=== PATIENT | male | born 1990 | race Two or more races ===

== ENCOUNTER 2017-03-26 15:17 | Inpatient (IN) | payer OTHER ==
[~2017-03-26] VITALS: Ht 170.2 cm; Wt 93.0 kg
[2017-03-26 15:22] VITALS: BP 197/111; PULSE 91; RESP 12; TEMP 98.6; O2SAT 99
[2017-03-26] MEDS ORDERED: SODIUM CHLORIDE 0.9% FLUSH 10 ML FLUSH IVF PRN (15:45)
--- NOTE | 2017-03-26 15:56 | RADRPT ---
EXAM DATE/TIME: 03/26/2017 15:42 [facility] COMPARISON: No previous studies available for comparison. INDICATIONS : Short of breath. MEDICAL HISTORY : None. SURGICAL HISTORY : None. ENCOUNTER: Initial ACUITY: 1 day PAIN SCORE: 0/10 LOCATION: Bilateral chest FINDINGS: A single view of the chest demonstrates mild basilar airspace disease. The trace pleural fluid. Heart size upper limits normal. CONCLUSION: 1. Mild basilar airspace disease with probable trace pleural fluid. Deepak Figueroa MD on March 26, 2017 at 15:52 Board Certified Radiologist. This report was verified electronically.
[2017-03-26 16:08] VITALS: O2SAT 93
[2017-03-26 16:18] LABS: BACTERIA, URINE RARE /hpf; BLOOD, URINE SMALL (NEG); COMMENT (UR) CULT NOT INDICATED; CULTURE IF INDICATED CULT NOT INDICATED; GLUCOSE,URINE NEG (NEG); KETONE, URINE NEG (NEG); NITRITE,URINE NEG (NEG); PH, URINE 6.5 (5.0-8.5); URINE COLOR YELLOW (YELLW/STRAW)
[2017-03-26 16:20] LABS: AUTOMATED NEUTROPHIL # 3.7 TH/MM3 (1.8-7.7); BASOPHIL % 0.7 % (0.0-2.0); EOSINOPHIL # 0.1 TH/MM3 (0-0.4); EOSINOPHIL % 2.1 % (0.0-4.0); HEMATOCRIT 46.5 % (39.0-51.0); HEMO FLAGS DIFF FINAL; LYMPH % 31.7 % (9.0-44.0); LYMPHOCYTE # 2.1 TH/MM3 (1.0-4.8); MEAN CELL VOLUME 74.5 FL (80.0-100.0); MEAN CORPUSCULAR HEMOGLOBIN 24.2 PG (27.0-34.0); MEAN CORPUSCULAR HGB CONC 32.5 % (32.0-36.0); MONO % 9.1 % (0.0-8.0); NEUT % 56.4 % (16.0-70.0); PLATELET COUNT 348 TH/MM3 (150-450); RED BLOOD COUNT 6.24 MIL/MM3 (4.50-5.90); RED CELL DISTRIBUTION WIDTH 14.6 % (11.6-17.2); WHITE BLOOD COUNT 6.6 TH/MM3 (4.0-11.0)
[2017-03-26 16:32] LABS: ALT (GPT) 49 U/L (12-78); ANION GAP 6 MEQ/L (5-15); AST (GOT) 47 U/L (15-37); BICARBONATE 24.6 MEQ/L (21.0-32.0); BLOOD UREA NITROGEN 18 MG/DL (7-18); CHLORIDE 101 MEQ/L (98-107); GLOMERULAR FILTRATION RATE 94 ML/MIN (>89); POTASSIUM 4.4 MEQ/L (3.5-5.1); SODIUM (NA) 132 MEQ/L (136-145)
[2017-03-26 16:34] LABS: ALKALINE PHOSPHATASE 70 U/L (45-117); TOTAL BILIRUBIN ADULT 0.2 MG/DL (0.2-1.0)
--- NOTE | 2017-03-26 16:39 | PD ---
HPI Chief Complaint: Medical Clearance Time Seen by Provider: 15:29 Travel History International Travel<30 days: No Contact w/Intl Traveler<30days: No Traveled to known affect area: No History of Present Illness HPI 27-year-old male complains of edema since a generalized swelling in the abdomen as well as some shortness of breath at times. He believes he's gained about 10 pounds in approximately 3 weeks. Last night he noticed ankle edema for the first time. Urination has been normal. Diet has been normal. No fever. No rash. No similar prior episodes. He denies past medical history of any significance. No new or different medication. Onset gradual. Timing constant. PFSH Past Medical History Medical History: Denies Significant Hx Diminished Hearing: No Tetanus Vaccination: Unknown Influenza Vaccination: No ?: Not Past Surgical History Surgical History: No Previous Surgery Social History Alcohol Use: No Tobacco Use: No Substance Use: No Allergies-Medications (Allergen,Severity, Reaction): Coded Allergies: No Known Allergies (Unverified , 03/26/17) Reported Meds & Prescriptions Reported Meds & Active Scripts Active No Active Prescriptions or Reported Medications Review of Systems Except as stated in HPI: all other systems reviewed are Neg General / Constitutional: No: Fever Musculoskeletal: Positive: Edema Physical Exam Narrative GENERAL: 27-year-old male well-nourished well-developed acute distress SKIN: Warm and dry. HEAD: Atraumatic. Normocephalic. EYES: Pupils equal and round. No scleral icterus. No injection or drainage. ENT: No nasal bleeding or discharge. Mucous membranes pink and moist. NECK: Trachea midline. No JVD. CARDIOVASCULAR: Regular rate and rhythm. RESPIRATORY: Lungs are clear. No tachypnea. GASTROINTESTINAL: Abdomen soft, non-tender, nondistended. Hepatic and splenic margins not palpable. MUSCULOSKELETAL: 2+ pitting edema overlying the medial malleoli bilaterally. No respiratory. Normal range of motion. 2+ dorsalis pedis bilaterally. NEUROLOGICAL: Awake and alert. No obvious cranial nerve deficits. Motor grossly within normal limits. Five out of 5 muscle strength in the arms and legs. Normal speech. PSYCHIATRIC: Appropriate mood and affect; insight and judgment normal. Data Data Last Documented VS Vital Signs Date Time Temp Pulse Resp B/P (MAP) Pulse Ox O2 Delivery O2 Flow Rate FiO2 03/26/17 16:08 93 Room Air 03/26/17 15:29 17 03/26/17 15:22 98.6 91 Vital signs reviewed, blood pressure 197/111 Orders Orders Complete Blood Count With Diff (03/26/17 15:36) Comprehensive Metabolic Panel (03/26/17 15:36) B-Type Natriuretic Peptide (03/26/17 15:36) Urinalysis - C+S If Indicated (03/26/17 15:36) Iv Access Insert/Monitor (03/26/17 15:36) Ecg Monitoring (03/26/17 15:36) Oximetry (03/26/17 15:36) Oxygen Administration (03/26/17 15:36) Chest, Single Ap (03/26/17 15:36) Sodium Chloride 0.9% Flush (Ns Flush) (03/26/17 15:45) Furosemide Inj (Lasix Inj) (03/26/17 17:00) Consult Nephrology (03/26/17 ) Admit Order (Ed Use Only) (03/26/17 17:24) Labs Laboratory Tests Test 03/26/17 15:53 03/26/17 15:57 Urine Color YELLOW Urine Turbidity CLEAR Urine pH 6.5 Urine Specific [place] 1.010 Urine Protein GREATER THAN 600 mg/dL Urine Glucose (UA) NEG mg/dL Urine Ketones NEG mg/dL Urine Occult Blood SMALL Urine Nitrite NEG Urine Bilirubin NEG Urine Urobilinogen LESS THAN 2.0 MG/DL Urine Leukocyte Esterase NEG Urine RBC 1 /hpf Urine WBC 6 /hpf Urine Bacteria RARE /hpf Microscopic Urinalysis Comment CULT NOT INDICATED White Blood Count 6.6 TH/MM3 Red Blood Count 6.24 MIL/MM3 Hemoglobin 15.1 GM/DL Hematocrit 46.5 % Mean Corpuscular Volume 74.5 FL Mean Corpuscular Hemoglobin 24.2 PG Mean Corpuscular Hemoglobin Concent 32.5 % Red Cell Distribution Width 14.6 % Platelet Count 348 TH/MM3 Mean Platelet Volume 8.0 FL Neutrophils (%) (Auto) 56.4 % Lymphocytes (%) (Auto) 31.7 % Monocytes (%) (Auto) 9.1 % Eosinophils (%) (Auto) 2.1 % Basophils (%) (Auto) 0.7 % Neutrophils # (Auto) 3.7 TH/MM3 Lymphocytes # (Auto) 2.1 TH/MM3 Monocytes # (Auto) 0.6 TH/MM3 Eosinophils # (Auto) 0.1 TH/MM3 Basophils # (Auto) 0.0 TH/MM3 CBC Comment DIFF FINAL Differential Comment Blood Urea Nitrogen 18 MG/DL Creatinine 0.97 MG/DL Random Glucose 99 MG/DL Total Protein 5.4 GM/DL Albumin 1.0 GM/DL Calcium Level 7.9 MG/DL Alkaline Phosphatase 70 U/L Aspartate Amino Transf (AST/SGOT) 47 U/L Alanine Aminotransferase (ALT/SGPT) 49 U/L Total Bilirubin 0.2 MG/DL Sodium Level 132 MEQ/L Potassium Level 4.4 MEQ/L Chloride Level 101 MEQ/L Carbon Dioxide Level 24.6 MEQ/L Anion Gap 6 MEQ/L Estimat Glomerular Filtration Rate 94 ML/MIN B-Type Natriuretic Peptide LESS THAN 2 PG/ML MDM Medical Decision Making Medical Screen Exam Complete: Yes Emergency Medical Condition: Yes Differential Diagnosis Hypoalbuminemia, renal failure, CHF, venous insufficiency, infection due to Narrative Course CBC & BMP Diagram 03/26/17 15:57 Total Protein 5.4 L, Albumin 1.0 L, Calcium Level 7.9 L, Alkaline Phosphatase 70 , Aspartate Amino Transf (AST/SGOT) 47 H, Alanine Aminotransferase (ALT/SGPT) 49 , Total Bilirubin 0.2 BNP < 2 UA: proteinuria d/w Dr Bell of nephrology: 24 urine protein, renal consult, 20mg IV lasix ok d/w Dr Sandoval for [facility] Diagnosis Primary Impression: Edema Qualified Codes: R60.9 - Edema, unspecified Additional Impressions: Hypoalbuminemia Proteinuria Qualified Codes: R80.9 - Proteinuria, unspecified Nephrotic syndrome Hypertension Qualified Codes: I10 - Essential (primary) hypertension Scripts No Active Prescriptions or Reported Meds Jordon Shelby MD Mar 26, 2017 16:39
[2017-03-26] MEDS ORDERED: FUROSEMIDE 20 MG/2 ML VIAL IV PUSH ONE (17:00)
[2017-03-26] MEDS ORDERED: PROCHLORPERAZINE 25 MG SUPP RECTAL PRN (18:00)
[2017-03-26] MEDS ORDERED: NALOXONE HCL 0.4 MG/ML AMP IV PUSH PRN (18:00)
[2017-03-26] MEDS ORDERED: LACTULOSE SYRUP 20 GM/30 ML CUP PO PRN (18:00)
[2017-03-26] MEDS ORDERED: ZOLPIDEM TARTRATE 5 MG TAB PO PRN (18:00)
[2017-03-26] MEDS ORDERED: amLODIPine BESYLATE 5 MG TAB PO ONE (18:00)
[2017-03-26] MEDS ORDERED: MAGNESIUM HYDROXIDE SUSP 30 ML CUP PO PRN (18:00)
[2017-03-26] MEDS ORDERED: cloNIDine HCL 0.1 MG TAB PO PRN (18:00)
[2017-03-26] MEDS ORDERED: ONDANSETRON HCL 4 MG/2 ML VIAL IVP PRN (18:00)
[2017-03-26] MEDS ORDERED: ACETAMINOPHEN 325 MG TAB PO PRN ×2 (18:00)
[2017-03-26] MEDS ORDERED: MORPHINE SULFATE 4 MG/ML INJ IV PUSH PRN ×2 (18:00)
[2017-03-26] MEDS ORDERED: SENNOSIDES 8.6 MG TAB PO PRN (18:00)
[2017-03-26] MEDS ORDERED: oxyCODONE/ACETAMINOPHEN 5 MG/325 MG TAB PO PRN (18:00)
[2017-03-26] MEDS ORDERED: BISACODYL 10 MG SUPP RECTAL PRN (18:00)
[2017-03-26] MEDS: FUROSEMIDE 20 MG/2 ML VIAL IV PUSH SCH (18:00)
[2017-03-26] MEDS ORDERED: oxyCODONE/ACETAMINOPHEN 10 MG/325 MG TAB PO PRN (18:00)
--- NOTE | 2017-03-26 18:08 | HHI.HP ---
[facility] Service [facility] Primary Care Physician No Primary Care Physician Admission Diagnosis Nephrotic Syndrome; Edema Diagnoses: (1) Hypertension Diagnosis: Principal (2) Nephrotic syndrome Diagnosis: Principal (3) Edema Diagnosis: Principal (4) Proteinuria Diagnosis: Principal (5) Hypoalbuminemia Chief Complaint: Bilateral lower extremity swelling and hypertension Travel History International Travel<30 Days: No Contact w/Intl Traveler <30 Da: No Traveled to Known Affected Are: No History of Present Illness 27-year-old male complains of edema bilateral lower extremities and a generalized swelling in the abdomen as well as some shortness of breath at times. He believes he's gained about 10 pounds in approximately 3 weeks. Last night he noticed ankle edema for the first time. Urination has been normal. Diet has been normal. No fever. No rash. No similar prior episodes. He denies past medical history of any significance. No new or different medication. Onset gradual. Timing constant. Elevated blood pressure here Review of Systems Constitutional: COMPLAINS OF: Fatigue, Weight gain, DENIES: Diaphoretic episodes, Fever, Weight loss, Chills, Dizziness Endocrine: DENIES: Heat/cold intolerance, Polydipsia, Polyuria, Polyphagia Eyes: DENIES: Blurred vision, Diplopia, Eye inflammation, Eye pain Ears, nose, mouth, throat: DENIES: Tinnitus, Hearing loss, Vertigo, Nasal discharge, Running Nose, Epistaxis Respiratory: DENIES: Apneas, Cough, Snoring, Wheezing Cardiovascular: DENIES: Chest pain, Palpitations, Syncope Gastrointestinal: DENIES: Abdominal pain, Black stools, Bloody stools Genitourinary: DENIES: Sexual dysfunction, Urinary frequency Musculoskeletal: DENIES: Joint pain, Muscle aches Integumentary: DENIES: Abnormal pigmentation, Nail changes, Pruritus Hematologic/lymphatic: DENIES: Bruising, Lymphadenopathy Immunologic/allergic: DENIES: Eczema, Urticaria Neurologic: DENIES: Headache, Localized weakness, Paresthesias, Speech Problems Psychiatric: DENIES: Anxiety, Confusion, Mood changes, Depression, Hallucinations, Agitation, Suicidal Ideation, Homicidal Ideation Past Family Social History Past Medical History Denies Past Surgical History Denies Reported Medications Denies Allergies: Coded Allergies: No Known Allergies (Unverified , 03/26/17) Family History Hypertension Social History Denies any tobacco alcohol or illicits 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 SKIN: No rashes, ecchymoses or lesions. Cool and dry. HEAD: Atraumatic. Normocephalic. No temporal or scalp tenderness. EYES: Pupils equal round and reactive. Extraocular motions intact. No scleral icterus. No injection or drainage. ENT: Nose without bleeding, purulent drainage or septal hematoma. Throat without erythema, tonsillar hypertrophy or exudate. Uvula midline. Airway patent. NECK: Trachea midline. No JVD or lymphadenopathy. Supple, nontender, no meningeal signs. CARDIOVASCULAR: Regular rate and rhythm without murmurs, gallops, or rubs. RESPIRATORY: Clear to auscultation. Breath sounds equal bilaterally. No wheezes , rales, or rhonchi. GASTROINTESTINAL: Abdomen soft, non-tender, nondistended. No hepato-splenomegaly , or palpable masses. No guarding. MUSCULOSKELETAL: Extremities without clubbing, cyanosis, or edema. No joint tenderness, effusion, or edema noted. No calf tenderness. Negative Homans sign bilaterally. NEUROLOGICAL: Awake and alert. Cranial nerves II through XII intact. Motor and sensory grossly within normal limits. Five out of 5 muscle strength in all muscle groups. Normal speech. Laboratory Laboratory Tests Test 03/26/17 15:53 03/26/17 15:57 Urine Color YELLOW Urine Turbidity CLEAR Urine pH 6.5 Urine Specific [place] 1.010 Urine Protein GREATER THAN 600 Urine Glucose (UA) NEG Urine Ketones NEG Urine Occult Blood SMALL Urine Nitrite NEG Urine Bilirubin NEG Urine Urobilinogen LESS THAN 2.0 Urine Leukocyte Esterase NEG Urine RBC 1 Urine WBC 6 Urine Bacteria RARE Microscopic Urinalysis Comment CULT NOT INDICATED White Blood Count 6.6 Red Blood Count 6.24 Hemoglobin 15.1 Hematocrit 46.5 Mean Corpuscular Volume 74.5 Mean Corpuscular Hemoglobin 24.2 Mean Corpuscular Hemoglobin Concent 32.5 Red Cell Distribution Width 14.6 Platelet Count 348 Mean Platelet Volume 8.0 Neutrophils (%) (Auto) 56.4 Lymphocytes (%) (Auto) 31.7 Monocytes (%) (Auto) 9.1 Eosinophils (%) (Auto) 2.1 Basophils (%) (Auto) 0.7 Neutrophils # (Auto) 3.7 Lymphocytes # (Auto) 2.1 Monocytes # (Auto) 0.6 Eosinophils # (Auto) 0.1 Basophils # (Auto) 0.0 CBC Comment DIFF FINAL Differential Comment Blood Urea Nitrogen 18 Creatinine 0.97 Random Glucose 99 Total Protein 5.4 Albumin 1.0 Calcium Level 7.9 Alkaline Phosphatase 70 Aspartate Amino Transf (AST/SGOT) 47 Alanine Aminotransferase (ALT/SGPT) 49 Total Bilirubin 0.2 Sodium Level 132 Potassium Level 4.4 Chloride Level 101 Carbon Dioxide Level 24.6 Anion Gap 6 Estimat Glomerular Filtration Rate 94 B-Type Natriuretic Peptide LESS THAN 2 Result Diagram: 03/26/17 1557 03/26/17 1557 Imaging Last Impressions Chest X-Ray 03/26/17 1536 Signed Impressions: Service Date/Time: Sunday, March 26, 2017 15:42 - CONCLUSION: 1. Mild basilar airspace disease with probable trace pleural fluid. MD Andreas Du VTE Risk Assessment Caprini VTE Risk Assessment: Mod/High Risk (score >= 2) Caprini Risk Assessment Model Point Value = 1 Point Value = 2 Point Value = 3 Point Value = 5 Age 41-60 Minor surgery BMI > 25 kg/m2 Swollen legs Varicose veins or History of unexplained or recurrent spontaneous Oral contraceptives or hormone replacement Sepsis (< 1 month) Serious lung disease, including pneumonia (< 1 month) Abnormal pulmonary function Acute myocardial infarction Congestive heart failure (< 1 month) History of inflammatory bowel disease Medical patient at bed rest Age 61-74 Arthroscopic surgery Major open surgery (> 45 min) Laparoscopic surgery (> 45 min) Malignancy Confined to bed (> 72 hours) Immobilizing plaster cast Central venous access Age >= 75 History of VTE Family history of VTE Factor V Leiden Prothrombin [id number] Lupus anticoagulant Anticardiolipin antibodies Elevated serum homocysteine Heparin-induced thrombocytopenia Other congenital or acquired thrombophilia Stroke (< 1 month) Elective arthroplasty Hip, pelvis, or leg fracture Acute spinal cord injury (< 1 month) Prophylaxis Regimen Total Risk Factor Score Risk Level Prophylaxis Regimen 0-1 Low Early ambulation 2 Moderate Order ONE of the following: *Sequential Compression Device (SCD) *Heparin 5000 units SQ BID 3-4 Higher Order ONE of the following medications: *Heparin 5000 units SQ TID *Enoxaparin/Lovenox 40 mg SQ daily (WT < 150 kg, CrCl > 30 mL/min) *Enoxaparin/Lovenox 30 mg SQ daily (WT < 150 kg, CrCl > 10-29 mL/min) *Enoxaparin/Lovenox 30 mg SQ BID (WT < 150 kg, CrCl > 30 mL/min) AND/OR *Sequential Compression Device (SCD) 5 or more Highest Order ONE of the following medications: *Heparin 5000 units SQ TID (Preferred with Epidurals) *Enoxaparin/Lovenox 40 mg SQ daily (WT < 150 kg, CrCl > 30 mL/min) *Enoxaparin/Lovenox 30 mg SQ daily (WT < 150 kg, CrCl > 10-29 mL/min) *Enoxaparin/Lovenox 30 mg SQ BID (WT < 150 kg, CrCl > 30 mL/min) AND *Sequential Compression Device (SCD) Assessment and Plan Problem List: (1) Nephrotic syndrome ICD Code: N04.9 - Nephrotic syndrome with unspecified morphologic changes (2) Edema ICD Code: R60.9 - Edema, unspecified (3) Proteinuria ICD Code: R80.9 - Proteinuria, unspecified (4) Hypoalbuminemia ICD Code: E88.09 - Other disorders of plasma-protein metabolism, not elsewhere classified (5) Hypertension ICD Code: I10 - Essential (primary) hypertension Assessment and Plan Nephrotic syndrome Fluid restrict consult nephrology Started on GEORGE inhibitor Calcium channel kailyn Accurate I's and O's Daily weights A.m. labs 24 hour urine Ultrasounds of bilateral kidney SCDs bilateral lower extremities Hypertension GEORGE inhibitor and calcium channel kailyn Lasix 20 mg IV every 12 hours When necessary Catapres Check thyroid panel as well as check for diabetes Fasting lipid panel DVT and GI prophylaxis Discussed with patient and RN Code Status Full code Discussed Condition With Scheduled with emergency room physician discussed with the emergency room nurse and patient Physician Certification 2 Midnight Certification Type: Admission for Inpatient Services Order for Inpatient Services The services are ordered in accordance with Medicare regulations or non- Medicare payer requirements, as applicable. In the case of services not specified as inpatient-only, they are appropriately provided as inpatient services in accordance with the 2-midnight benchmark. Estimated LOS (days): 3 3 days is the estimated time the patient will need to remain in the hospital, assuming treatment plan goals are met and no additional complications. Post-Hospital Plan: Not yet determined Pablo Sandoval DO Mar 26, 2017 18:08
[2017-03-26 18:25] VITALS: BP 163/72; PULSE 78; RESP 16; O2SAT 99
[2017-03-26 19:04] LABS: CREATINE KINASE 131 U/L (39-308)
--- NOTE | 2017-03-26 19:12 | RADRPT ---
EXAM DATE/TIME: 03/26/2017 18:31 [facility] COMPARISON: No previous studies available for comparison. INDICATIONS : Abnormal labs. MEDICAL HISTORY : Fatigue. Weight gain. SURGICAL HISTORY : None. ENCOUNTER: Initial ACUITY: 1 day PAIN SCORE: 5/10 LOCATION: Bilateral flank MEASUREMENTS: RIGHT KIDNEY: 13.1 x 6.4 x 7.5 cm LEFT KIDNEY: 13.2 x 6.8 x 6.8 cm FINDINGS: RIGHT KIDNEY: Renal cortex is normal in thickness and echotexture. No hydronephrosis, stone, or mass. LEFT KIDNEY: Renal cortex is normal in thickness and echotexture. No hydronephrosis, stone, or mass. BLADDER: Within normal limits given the degree of distension. CONCLUSION: 1. No evidence of hydronephrosis, mass or stone. 2. Unremarkable urinary bladder. 3. Bilateral pleural effusions. 4. Minimal ascites within the upper abdomen. Daryl Monahan MD on March 26, 2017 at 19:09 Board Certified Radiologist. This report was verified electronically.
[2017-03-26 20:00] VITALS: BP 143/80; PULSE 96; RESP 16; O2SAT 99
--- NOTE | 2017-03-26 20:01 | PD.CONS ---
HPI Service Nephrology Consult Requested By Dr. Sinha Reason for Consult Proteinuria Primary Care Physician No Primary Care Physician History of Present Illness The patient is a 27 yo male who presented to the ED today for evaluation of swelling, SOB, and flu-like symptoms. 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 Reports that prior to the last few weeks, he has been in excellent health. Started noting the aforementioned symptoms approximately 3 weeks ago that has worsening in the past few days. Denies diabetic hx, no NSAID use, not hypertensive, denies hx of syphilis, hepatitis, nor HIV infection. No known family history of renal issues. Admitting SCr 0.9 and eGFR of 94 Serum albumin at 1.0. UA showed >600mg/dL on random UA all raising concern for nephrotic syndrome. (Sara Jesus) Review of Systems Respiratory: COMPLAINS OF: Shortness of breath Cardiovascular: COMPLAINS OF: Lower Extremity Edema (Sara Jesus) Past Family Social History Allergies: Coded Allergies: No Known Allergies (Unverified , 03/26/17) Past Medical History Denies Past Surgical History Denies Reported Medications Only recently took OTC flu medication but only 2 doses. Otherwise denies any medication intake Active Ordered Medications Current Medications Medications (Trade) Dose Ordered Sig/Puma Route Start Time Stop Time Status Last Admin (Catapres) 0.1 mg Q4H PRN PO 03/26/17 18:00 (Prinivil) 10 mg Q12HR PO 03/26/17 21:00 (Norvasc) 5 mg DAILY PO 03/27/17 09:00 (Lasix Inj) 20 mg BID@,18 IV PUSH 03/26/17 18:00 (NS Flush) 2 ml UNSCH PRN IV FLUSH 03/26/17 18:00 (NS Flush) 2 ml BID IV FLUSH 03/26/17 21:00 (Tylenol) 650 mg Q4H PRN PO 03/26/17 18:00 (Zofran Inj) 4 mg Q6H PRN IVP 03/26/17 18:00 (Compazine Supp) 25 mg Q12H PRN RECTAL 03/26/17 18:00 (Ambien) 5 mg HS PRN PO 03/26/17 18:00 (Tylenol) 650 mg Q6H PRN PO 03/26/17 18:00 (Percocet 5-325 Mg) 1 tab Q6H PRN PO 03/26/17 18:00 (Percocet 10-325 Mg) 1 tab Q6H PRN PO 03/26/17 18:00 (Morphine Inj) 2 mg Q3H PRN IV PUSH 03/26/17 18:00 (Morphine Inj) 4 mg Q3H PRN IV PUSH 03/26/17 18:00 (Narcan Inj) 0.4 mg UNSCH PRN IV PUSH 03/26/17 18:00 (Radha-Colace) 1 tab BID PO 03/26/17 21:00 (Milk Of Magnesia Liq) 30 ml Q12H PRN PO 03/26/17 18:00 (Senokot) 17.2 mg Q12H PRN PO 03/26/17 18:00 (Dulcolax Supp) 10 mg DAILY PRN RECTAL 03/26/17 18:00 (Lactulose Liq) 30 ml DAILY PRN PO 03/26/17 18:00 (Pepcid) 20 mg BID PO 03/26/17 21:00 Family History Mother with HTN and potential liver disease Denies any FHx of kidney disease, proteinuria, nor collagen vascular disease Social History Denies tobacco use Denies EtOH Denies illicit drug use (Sara Jesus) Physical Exam Vital Signs Vital Signs Date Time Temp Pulse Resp B/P (MAP) Pulse Ox O2 Delivery O2 Flow Rate FiO2 03/26/17 18:25 78 16 163/72 (102) 99 Room Air 03/26/17 16:08 93 Room Air 03/26/17 15:52 94 Room Air 03/26/17 15:29 17 03/26/17 15:22 98.6 91 12 197/111 (139) 99 Physical Exam GENERAL: Laying in bed. NAD. SKIN: Warm and dry. HEAD: Atraumatic. Normocephalic. EYES: Pupils equal and round. No scleral icterus. No injection or drainage. ENT: No nasal bleeding or discharge. Mucous membranes pink and moist. NECK: Trachea midline. No JVD. CARDIOVASCULAR: Regular rate and rhythm. RESPIRATORY: No accessory muscle use. Clear to auscultation. Breath sounds equal bilaterally. GASTROINTESTINAL: Abdomen soft, non-tender, nondistended. Hepatic and splenic margins not palpable. MUSCULOSKELETAL: Extremities without clubbing, cyanosis, 1-2+ pitting edema BLE up to knees. Trace in hips and hands. NEUROLOGICAL: Awake and alert. Normal speech. PSYCHIATRIC: Appropriate mood and affect; insight and judgment normal. Laboratory Laboratory Tests Test 03/26/17 15:53 03/26/17 15:57 Urine Color YELLOW Urine Turbidity CLEAR Urine pH 6.5 Urine Specific [place] 1.010 Urine Protein GREATER THAN 600 Urine Glucose (UA) NEG Urine Ketones NEG Urine Occult Blood SMALL Urine Nitrite NEG Urine Bilirubin NEG Urine Urobilinogen LESS THAN 2.0 Urine Leukocyte Esterase NEG Urine RBC 1 Urine WBC 6 Urine Bacteria RARE Microscopic Urinalysis Comment CULT NOT INDICATED White Blood Count 6.6 Red Blood Count 6.24 Hemoglobin 15.1 Hematocrit 46.5 Mean Corpuscular Volume 74.5 Mean Corpuscular Hemoglobin 24.2 Mean Corpuscular Hemoglobin Concent 32.5 Red Cell Distribution Width 14.6 Platelet Count 348 Mean Platelet Volume 8.0 Neutrophils (%) (Auto) 56.4 Lymphocytes (%) (Auto) 31.7 Monocytes (%) (Auto) 9.1 Eosinophils (%) (Auto) 2.1 Basophils (%) (Auto) 0.7 Neutrophils # (Auto) 3.7 Lymphocytes # (Auto) 2.1 Monocytes # (Auto) 0.6 Eosinophils # (Auto) 0.1 Basophils # (Auto) 0.0 CBC Comment DIFF FINAL Differential Comment Blood Urea Nitrogen 18 Creatinine 0.97 Random Glucose 99 Total Protein 5.4 Albumin 1.0 Calcium Level 7.9 Alkaline Phosphatase 70 Aspartate Amino Transf (AST/SGOT) 47 Alanine Aminotransferase (ALT/SGPT) 49 Total Bilirubin 0.2 Sodium Level 132 Potassium Level 4.4 Chloride Level 101 Carbon Dioxide Level 24.6 Anion Gap 6 Estimat Glomerular Filtration Rate 94 Total Creatine Kinase 131 Troponin I LESS THAN 0.02 B-Type Natriuretic Peptide LESS THAN 2 Complement C3 160 Complement C4 48 (Sara Jesus) Result Diagram: 03/26/17 1557 03/26/17 1557 Imaging Last Impressions Chest X-Ray 03/26/17 1536 Signed Impressions: Service Date/Time: Sunday, March 26, 2017 15:42 - CONCLUSION: 1. Mild basilar airspace disease with probable trace pleural fluid. Deepak Figueroa MD Renal Ultrasound 03/26/17 0000 Signed Impressions: Service Date/Time: Sunday, March 26, 2017 18:31 - CONCLUSION: 1. No evidence of hydronephrosis, mass or stone. 2. Unremarkable urinary bladder. 3. Bilateral pleural effusions. 4. Minimal ascites within the upper abdomen. Daryl Monahan MD (Sara Jesus) Assessment and Plan Problem List: (1) Proteinuria ICD Codes: R80.9 - Proteinuria, unspecified Plan: Proteinuria will be quantified via 24h urine collection. His preliminary lab findings are concerning for nephrotic syndrome from etiology that is not clear at the present. We are going to screen for potential underlying etiologies; check CAM, complements, hepatitis panel, RPR, HIV, SPEP, immunofixation, K/L ratio, coagulation profile, lipid profile. Renal US reviewed. Differential diagnosis includes membranous nephropathy, minimal change disease, lupus, FSGS, membranoproliferative disease, and IgA nephropathy. As discussed with the patient, we will like have to perform a kidney biopsy for definitive diagnosis for definitive treatment if possible. He was provided a handout describing procedure if indicated. Will follow with labs in the AM (2) Hypertension ICD Codes: I10 - Essential (primary) hypertension Plan: Has been started on ACEi and Norvasc per primary team (3) Edema ICD Codes: R60.9 - Edema, unspecified Plan: Likely related to hypoalbuminemia. Lasix has been started by primary (Sara Jesus) Assessment and Plan The exam, history, and the medical decision-making described in the above note were completed with the assistance of the PA-C. I reviewed and agree with the findings presented. (Terence Bell MD) Problem Qualifiers (1) Proteinuria: Qualified Codes: R80.9 - Proteinuria, unspecified (2) Hypertension: Qualified Codes: I10 - Essential (primary) hypertension (3) Edema: Qualified Codes: R60.9 - Edema, unspecified Sara Jesus Mar 26, 2017 20:01 Terence Bell MD Apr 10, 2017 16:49
[2017-03-26] MEDS: DOCUSATE SODIUM 50 MG/SENNA 8.6 MG TAB PO SCH (21:00)
[2017-03-26 21:30] VITALS: BP 164/84; PULSE 79; RESP 18; TEMP 98.3; O2SAT 96
[2017-03-26 22:00] LABS: APTT (PATIENT) 33.4 SEC (24.3-30.1); PROTHROMBIN TIME - PATIENT 11.6 SEC (9.8-11.6)
[2017-03-26] MEDS: SODIUM CHLORIDE 0.9% FLUSH 10 ML FLUSH IV FLUSH SCH (22:03)
[2017-03-26] MEDS: LISINOPRIL 10 MG TAB PO SCH (22:03)
[2017-03-26] MEDS: FAMOTIDINE 20 MG TAB PO SCH (22:03)
[2017-03-26 22:56] LABS: CREATINE KINASE 127 U/L (39-308); HDL CHOLESTEROL 52.4 MG/DL (40.0-60.0); LDL CHOLESTEROL 639 MG/DL (0-99); TOTAL PROTEIN SPE 5.1 GM/DL (6.0-7.6)
[2017-03-26 23:15] VITALS: O2SAT 100
[2017-03-27] VITALS (10 sets, daily range): BP systolic 122–176; BP diastolic 65–89; PULSE 76–96; RESP 17–20; TEMP 96.5–98.1; O2SAT 96–98
[2017-03-27 08:23] LABS: URINE TOTAL PROTEIN TIMED 1033.2 MG/DL
[2017-03-27] MEDS: DOCUSATE SODIUM 50 MG/SENNA 8.6 MG TAB PO SCH ×2 (09:00→21:00)
[2017-03-27] MEDS: amLODIPine BESYLATE 5 MG TAB PO SCH (09:43)
[2017-03-27] MEDS: FAMOTIDINE 20 MG TAB PO SCH ×2 (09:44→21:51)
[2017-03-27] MEDS: FUROSEMIDE 20 MG/2 ML VIAL IV PUSH SCH ×2 (09:44→18:06)
[2017-03-27] MEDS: SODIUM CHLORIDE 0.9% FLUSH 10 ML FLUSH IV FLUSH SCH ×2 (09:44→21:00)
[2017-03-27] MEDS: LISINOPRIL 10 MG TAB PO SCH ×2 (09:44→21:51)
[2017-03-27] MEDS: ATORVASTATIN 80 MG TAB PO SCH (11:00)
--- NOTE | 2017-03-27 11:00 | HHI.PR ---
Subjective Remarks 27-year-old male complains of edema bilateral lower extremities and a generalized swelling in the abdomen as well as some shortness of breath at times. He believes he's gained about 10 pounds in approximately 3 weeks. Last night he noticed ankle edema for the first time. Urination has been normal. Diet has been normal. No fever. No rash. No similar prior episodes. He denies past medical history of any significance. No new or different medication. Onset gradual. Timing constant. Elevated blood pressure here 03-27 patient has been seen by nephrology Multiple labs are been ordered Has elevated triglycerides and cholesterol will start on a statin Has proteinuria Has hypoalbuminemia Has edema suspected nephrotic syndrome Will probably need a kidney biopsy before discharge Objective Vitals Vital Signs Date Time Temp Pulse Resp B/P (MAP) Pulse Ox O2 Delivery O2 Flow Rate FiO2 03/27/17 08:00 97.8 91 18 122/74 (90) 98 03/27/17 05:57 98.1 93 18 136/80 (98) 96 03/27/17 04:23 89 03/27/17 03:57 98.0 96 20 139/78 (98) 03/27/17 00:23 86 03/26/17 23:15 100 21 03/26/17 21:30 98.3 79 18 164/84 (110) 96 03/26/17 20:52 03/26/17 20:00 96 16 143/80 (101) 99 Room Air 03/26/17 18:25 78 16 163/72 (102) 99 Room Air 03/26/17 16:08 93 Room Air 03/26/17 15:52 94 Room Air 03/26/17 15:29 17 03/26/17 15:22 98.6 91 12 197/111 (139) 99 I/O 03/26/17 03/26/17 03/26/17 03/27/17 03/27/17 03/27/17 07:00 15:00 23:00 07:00 15:00 23:00 Intake Total 480 ml Balance 480 ml Intake Oral 480 ml Result Diagram: 03/26/17 1557 03/26/17 1557 Other Results Laboratory Tests Test 03/26/17 15:53 03/26/17 15:57 03/26/17 21:00 03/26/17 22:04 Urine Color YELLOW Urine Turbidity CLEAR Urine pH 6.5 Urine Specific [place] 1.010 Urine Protein GREATER THAN 600 mg/dL Urine Glucose (UA) NEG mg/dL Urine Ketones NEG mg/dL Urine Occult Blood SMALL Urine Nitrite NEG Urine Bilirubin NEG Urine Urobilinogen LESS THAN 2.0 MG/DL Urine Leukocyte Esterase NEG Urine RBC 1 /hpf Urine WBC 6 /hpf Urine Bacteria RARE /hpf Microscopic Urinalysis Comment CULT NOT INDICATED Urine Random Creatinine 128 MG/DL Urine Random Total Protein 1065 MG/DL Urine Protein/Creatinine Ratio 8.32 White Blood Count 6.6 TH/MM3 Red Blood Count 6.24 MIL/MM3 Hemoglobin 15.1 GM/DL Hematocrit 46.5 % Mean Corpuscular Volume 74.5 FL Mean Corpuscular Hemoglobin 24.2 PG Mean Corpuscular Hemoglobin Concent 32.5 % Red Cell Distribution Width 14.6 % Platelet Count 348 TH/MM3 Mean Platelet Volume 8.0 FL Neutrophils (%) (Auto) 56.4 % Lymphocytes (%) (Auto) 31.7 % Monocytes (%) (Auto) 9.1 % Eosinophils (%) (Auto) 2.1 % Basophils (%) (Auto) 0.7 % Neutrophils # (Auto) 3.7 TH/MM3 Lymphocytes # (Auto) 2.1 TH/MM3 Monocytes # (Auto) 0.6 TH/MM3 Eosinophils # (Auto) 0.1 TH/MM3 Basophils # (Auto) 0.0 TH/MM3 CBC Comment DIFF FINAL Differential Comment Blood Urea Nitrogen 18 MG/DL Creatinine 0.97 MG/DL Random Glucose 99 MG/DL Total Protein 5.4 GM/DL 5.1 GM/DL Albumin 1.0 GM/DL Calcium Level 7.9 MG/DL Alkaline Phosphatase 70 U/L Aspartate Amino Transf (AST/SGOT) 47 U/L Alanine Aminotransferase (ALT/SGPT) 49 U/L Total Bilirubin 0.2 MG/DL Sodium Level 132 MEQ/L Potassium Level 4.4 MEQ/L Chloride Level 101 MEQ/L Carbon Dioxide Level 24.6 MEQ/L Anion Gap 6 MEQ/L Estimat Glomerular Filtration Rate 94 ML/MIN Total Creatine Kinase 131 U/L 127 U/L Troponin I LESS THAN 0.02 NG/ML LESS THAN 0.02 NG/ML B-Type Natriuretic Peptide LESS THAN 2 PG/ML Complement C3 160 MG/DL Complement C4 48 MG/DL Prothrombin Time 11.6 SEC Prothromb Time International Ratio 1.0 RATIO Activated Partial Thromboplast Time 33.4 SEC Triglycerides Level 285 MG/DL Cholesterol Level 748 MG/DL LDL Cholesterol 639 MG/DL HDL Cholesterol 52.4 MG/DL Cholesterol/HDL Ratio 14.27 RATIO Imaging Last Impressions Chest X-Ray 03/26/17 1536 Signed Impressions: Service Date/Time: Sunday, March 26, 2017 15:42 - CONCLUSION: 1. Mild basilar airspace disease with probable trace pleural fluid. Deepak Figueroa MD Renal Ultrasound 03/26/17 0000 Signed Impressions: Service Date/Time: Sunday, March 26, 2017 18:31 - CONCLUSION: 1. No evidence of hydronephrosis, mass or stone. 2. Unremarkable urinary bladder. 3. Bilateral pleural effusions. 4. Minimal ascites within the upper abdomen. Daryl Monahan MD Objective Remarks GENERAL: This is a well-nourished, well-developed patient, in no apparent distress. SKIN: No rashes, ecchymoses or lesions. Cool and dry. +2 bilateral lower extremity edema HEAD: Atraumatic. Normocephalic. No temporal or scalp tenderness. EYES: Pupils equal round and reactive. Extraocular motions intact. No scleral icterus. No injection or drainage. ENT: Nose without bleeding, purulent drainage or septal hematoma. Throat without erythema, tonsillar hypertrophy or exudate. Uvula midline. Airway patent. NECK: Trachea midline. No JVD or lymphadenopathy. Supple, nontender, no meningeal signs. CARDIOVASCULAR: Regular rate and rhythm without murmurs, gallops, or rubs. S1 and S2 no S3 or S4 RESPIRATORY: Clear to auscultation. Breath sounds equal bilaterally. No wheezes , rales, or rhonchi. GASTROINTESTINAL: Abdomen soft, non-tender, nondistended. No hepato-splenomegaly , or palpable masses. No guarding. MUSCULOSKELETAL: Extremities without clubbing, cyanosis, positive +2 bilateral lower extremity edema no joint tenderness, effusion, or edema noted. No calf tenderness. Negative Homans sign bilaterally. NEUROLOGICAL: Awake and alert. Cranial nerves II through XII intact. Motor and sensory grossly within normal limits. Five out of 5 muscle strength in all muscle groups. Normal speech. Insight and judgment is good Mood and behaviors appropriate Medications and IVs Current Medications Sodium Chloride (NS Flush) 2 ml UNSCH PRN IVF FLUSH AFTER USING IV ACCESS; Start 03/26/17 at 15:45; Stop 03/26/17 at 18:09; Status DC Furosemide (Lasix Inj) 20 mg ONCE ONCE IV PUSH Last administered on 03/26/17 17:02; Start 03/26/17 at 17:00; Stop 03/26/17 at 17:01; Status DC Clonidine (Catapres) 0.1 mg Q4H PRN PO SBP>160, DBP>90; Start 03/26/17 at 18:00 Lisinopril (Prinivil) 10 mg Q12HR PO Last administered on 03/27/17 09:44; Start 03/26/17 at 21:00 Amlodipine Besylate (Norvasc) 5 mg ONCE ONCE PO Last administered on 18:28; Start 03/26/17 at 18:00; Stop 03/26/17 at 18:10; Status DC Amlodipine Besylate (Norvasc) 5 mg DAILY PO Last administered on 03/27/17 09: 43; Start 03/27/17 at 09:00 Furosemide (Lasix Inj) 20 mg BID@,18 IV PUSH Last administered on 03/27/17 09:44; Start 03/26/17 at 18:00 Sodium Chloride (NS Flush) 2 ml UNSCH PRN IV FLUSH FLUSH AFTER USING IV ACCESS ; Start 03/26/17 at 18:00 Sodium Chloride (NS Flush) 2 ml BID IV FLUSH Last administered on 03/27/17 09: 44; Start 03/26/17 at 21:00 Acetaminophen (Tylenol) 650 mg Q4H PRN PO TEMP > 100.4; Start 03/26/17 at 18:00 Ondansetron HCl (Zofran Inj) 4 mg Q6H PRN IVP NAUSEA OR VOMITING; Start at 18:00 Prochlorperazine (Compazine Supp) 25 mg Q12H PRN RECTAL NAUSEA OR VOMITING; Start 03/26/17 at 18:00 Zolpidem Tartrate (Ambien) 5 mg HS PRN PO INSOMNIA; Start 03/26/17 at 18:00 Acetaminophen (Tylenol) 650 mg Q6H PRN PO PAIN SCALE 1 TO 2 Last administered on 9/20/17at 05:08; Start 03/26/17 at 18:00 Oxycodone/ Acetaminophen (Percocet 5-325 Mg) 1 tab Q6H PRN PO PAIN SCALE 3 TO 5; Start 03/26/17 at 18:00 Oxycodone/ Acetaminophen (Percocet 10-325 Mg) 1 tab Q6H PRN PO PAIN SCALE 6 TO 10; Start 03/26/17 at 18:00 Morphine Sulfate (Morphine Inj) 2 mg Q3H PRN IV PUSH Pain 3-5; if unable to take PO; Start 03/26/17 at 18:00 Morphine Sulfate (Morphine Inj) 4 mg Q3H PRN IV PUSH Pain 6-10;if unable to take PO; Start 03/26/17 at 18:00 Naloxone HCl (Narcan Inj) 0.4 mg UNSCH PRN IV PUSH SEE LABEL COMMENTS; Start at 18:00 Senna/Docusate Sodium (Radha-Colace) 1 tab BID PO ; Start 03/26/17 at 21:00 Magnesium Hydroxide (Milk Of Magnesia Liq) 30 ml Q12H PRN PO MILD - MODERATE CONSTIPATION; Start 03/26/17 at 18:00 Sennosides (Senokot) 17.2 mg Q12H PRN PO MODERATE - SEVERE CONSTIPATION; Start 03/26/17 at 18:00 Bisacodyl (Dulcolax Supp) 10 mg DAILY PRN RECTAL SEVERE CONSITIPATION; Start at 18:00 Lactulose (Lactulose Liq) 30 ml DAILY PRN PO SEVERE CONSITIPATION; Start at 18:00 Famotidine (Pepcid) 20 mg BID PO Last administered on 03/27/17t 09:44; Start at 21:00 Urinary Catheter: No Vascular Central Line Catheter: No A/P Problem List: (1) Nephrotic syndrome ICD Code: N04.9 - Nephrotic syndrome with unspecified morphologic changes (2) Edema ICD Code: R60.9 - Edema, unspecified (3) Proteinuria ICD Code: R80.9 - Proteinuria, unspecified (4) Hypoalbuminemia ICD Code: E88.09 - Other disorders of plasma-protein metabolism, not elsewhere classified (5) Hypertension ICD Code: I10 - Essential (primary) hypertension (6) Hyperlipidemia ICD Code: E78.5 - Hyperlipidemia, unspecified (7) Hypertriglyceridemia ICD Code: E78.1 - Pure hyperglyceridemia Assessment and Plan Nephrotic syndrome has proteinuria -has edema-has hypoalbuminemia-has lipid issues Fluid restrict consult nephrology Started on GEORGE inhibitor Calcium channel kailyn Accurate I's and O's Daily weights A.m. labs 24 hour urine in the process of being done Ultrasounds of bilateral kidney have been done SCDs bilateral lower extremities Hypertension GEORGE inhibitor and calcium channel kailyn Lasix 20 mg IV every 12 hours When necessary Catapres Hyperlipidemia and hypertriglyceridemia started on high-dose Lipitor Check thyroid panel as well as check for diabetes Fasting lipid panel DVT and GI prophylaxis Discussed with patient and RN Problem Qualifiers (1) Edema: Qualified Codes: R60.9 - Edema, unspecified (2) Proteinuria: Qualified Codes: R80.9 - Proteinuria, unspecified (3) Hypertension: Qualified Codes: I10 - Essential (primary) hypertension Pablo Sandoval DO Mar 27, 2017 11:00
[2017-03-27 11:06] LABS: AUTOMATED NEUTROPHIL # 4.3 TH/MM3 (1.8-7.7); BASOPHIL % 0.6 % (0.0-2.0); EOSINOPHIL # 0.1 TH/MM3 (0-0.4); EOSINOPHIL % 1.9 % (0.0-4.0); HEMATOCRIT 42.4 % (39.0-51.0); HEMO FLAGS DIFF FINAL; MEAN CORPUSCULAR HEMOGLOBIN 24.8 PG (27.0-34.0); MEAN CORPUSCULAR HGB CONC 33.5 % (32.0-36.0); MONO % 12.2 % (0.0-8.0); NEUT % 58.3 % (16.0-70.0); PLATELET COUNT 312 TH/MM3 (150-450); RED BLOOD COUNT 5.73 MIL/MM3 (4.50-5.90); RED CELL DISTRIBUTION WIDTH 14.5 % (11.6-17.2); WHITE BLOOD COUNT 7.3 TH/MM3 (4.0-11.0)
[2017-03-27 11:34] LABS: ALT (GPT) 32 U/L (12-78); ANION GAP 7 MEQ/L (5-15); AST (GOT) 29 U/L (15-37); BICARBONATE 25.8 MEQ/L (21.0-32.0); BLOOD UREA NITROGEN 21 MG/DL (7-18); CHLORIDE 98 MEQ/L (98-107); GLOMERULAR FILTRATION RATE 80 ML/MIN (>89); MAGNESIUM 2.7 MG/DL (1.5-2.5); POTASSIUM 4.3 MEQ/L (3.5-5.1); SODIUM (NA) 131 MEQ/L (136-145)
[2017-03-27 11:43] LABS: ALKALINE PHOSPHATASE 66 U/L (45-117); FREE T4 0.63 NG/DL (0.76-1.46); TOTAL BILIRUBIN ADULT 0.2 MG/DL (0.2-1.0)
[2017-03-27 17:19] LABS: HEMOGLOBIN A1a 0.9 %; HEMOGLOBIN A1b 1.5 %; HEMOGLOBIN Ao 86.6 %; HEMOGLOBIN LA1C 1.9 %; HEMOGLOBIN P3 3.4 %
--- NOTE | 2017-03-27 17:20 | HHI.NPPN ---
Subjective History of Present Illness The patient is a 27 yo male who presented to the ED today for evaluation of swelling, SOB, and flu-like symptoms. 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 Reports that prior to the last few weeks, he has been in excellent health. Started noting the aforementioned symptoms approximately 3 weeks ago that has worsening in the past few days. Denies diabetic hx, no NSAID use, not hypertensive, denies hx of syphilis, hepatitis, nor HIV infection. No known family history of renal issues. Admitting SCr 0.9 and eGFR of 94 Serum albumin at 1.0. UA showed >600mg/dL on random UA all raising concern for nephrotic syndrome. Interval History Patient indicating he still has significant lower extremity edema. Has seen no increase in urine output by history. Review of Systems General Constitutional: Weight Change Cardiovascular Cardiac: Edema Objective Data Data Vital Signs Date Time Temp Pulse Resp B/P (MAP) Pulse Ox O2 Delivery O2 Flow Rate FiO2 03/27/17 16:00 96.9 88 18 135/80 (98) 98 03/27/17 12:00 96.5 85 17 128/65 (86) 98 03/27/17 10:58 98 21 03/27/17 09:40 91 03/27/17 08:00 97.8 91 18 122/74 (90) 98 03/27/17 05:57 98.1 93 18 136/80 (98) 96 03/27/17 04:23 89 03/27/17 03:57 98.0 96 20 139/78 (98) 03/27/17 00:23 86 03/26/17 23:15 100 21 03/26/17 21:30 98.3 79 18 164/84 (110) 96 03/26/17 20:52 03/26/17 20:00 96 16 143/80 (101) 99 Room Air 03/26/17 18:25 78 16 163/72 (102) 99 Room Air -: 03/27/17 1038 03/27/17 1045 Medication Review Current Medications Sodium Chloride (NS Flush) 2 ml UNSCH PRN IVF FLUSH AFTER USING IV ACCESS; Start 03/26/17 at 15:45; Stop 03/26/17 at 18:09; Status DC Furosemide (Lasix Inj) 20 mg ONCE ONCE IV PUSH Last administered on 03/26/17t 17:02; Start 03/26/17 at 17:00; Stop 03/26/17 at 17:01; Status DC Clonidine (Catapres) 0.1 mg Q4H PRN PO SBP>160, DBP>90; Start 03/26/17 at 18:00 Lisinopril (Prinivil) 10 mg Q12HR PO Last administered on 03/27/17 09:44; Start 03/26/17 at 21:00 Amlodipine Besylate (Norvasc) 5 mg ONCE ONCE PO Last administered on 18:28; Start 03/26/17 at 18:00; Stop 03/26/17 at 18:10; Status DC Amlodipine Besylate (Norvasc) 5 mg DAILY PO Last administered on 03/27/17 09: 43; Start 03/27/17 at 09:00 Furosemide (Lasix Inj) 20 mg BID@09,18 IV PUSH Last administered on 03/27/17 09:44; Start 03/26/17 at 18:00 Sodium Chloride (NS Flush) 2 ml UNSCH PRN IV FLUSH FLUSH AFTER USING IV ACCESS ; Start 03/26/17 at 18:00 Sodium Chloride (NS Flush) 2 ml BID IV FLUSH Last administered on 03/27/17 09: 44; Start 03/26/17 at 21:00 Acetaminophen (Tylenol) 650 mg Q4H PRN PO TEMP > 100.4; Start 03/26/17 at 18:00 Ondansetron HCl (Zofran Inj) 4 mg Q6H PRN IVP NAUSEA OR VOMITING; Start at 18:00 Prochlorperazine (Compazine Supp) 25 mg Q12H PRN RECTAL NAUSEA OR VOMITING; Start 03/26/17 at 18:00 Zolpidem Tartrate (Ambien) 5 mg HS PRN PO INSOMNIA; Start 03/26/17 at 18:00 Acetaminophen (Tylenol) 650 mg Q6H PRN PO PAIN SCALE 1 TO 2 Last administered on 03/27/17 05:08; Start 03/26/17 at 18:00 Oxycodone/ Acetaminophen (Percocet 5-325 Mg) 1 tab Q6H PRN PO PAIN SCALE 3 TO 5; Start 03/26/17 at 18:00 Oxycodone/ Acetaminophen (Percocet 10-325 Mg) 1 tab Q6H PRN PO PAIN SCALE 6 TO 10; Start 03/26/17 at 18:00 Morphine Sulfate (Morphine Inj) 2 mg Q3H PRN IV PUSH Pain 3-5; if unable to take PO; Start 03/26/17 at 18:00 Morphine Sulfate (Morphine Inj) 4 mg Q3H PRN IV PUSH Pain 6-10;if unable to take PO; Start 03/26/17 at 18:00 Naloxone HCl (Narcan Inj) 0.4 mg UNSCH PRN IV PUSH SEE LABEL COMMENTS; Start at 18:00 Senna/Docusate Sodium (Radha-Colace) 1 tab BID PO ; Start 03/26/17 at 21:00 Magnesium Hydroxide (Milk Of Magnesia Liq) 30 ml Q12H PRN PO MILD - MODERATE CONSTIPATION; Start 03/26/17 at 18:00 Sennosides (Senokot) 17.2 mg Q12H PRN PO MODERATE - SEVERE CONSTIPATION; Start 03/26/17 at 18:00 Bisacodyl (Dulcolax Supp) 10 mg DAILY PRN RECTAL SEVERE CONSITIPATION; Start at 18:00 Lactulose (Lactulose Liq) 30 ml DAILY PRN PO SEVERE CONSITIPATION; Start at 18:00 Famotidine (Pepcid) 20 mg BID PO Last administered on 03/27/17 09:44; Start at 21:00 Atorvastatin Calcium (Lipitor) 80 mg DAILY PO Last administered on 03/27/17 11 :00; Start 03/27/17 at 11:00 Physical Exam General Appearance: Well Nourished, No Acute Distress, Comfortable Eyes Eye Exam: Sclera White Throat Throat Exam: Oral Mucosa Stebbins & Moist Pulmonary Resp Exam: Clear Bilaterally, Breath Sounds Equal, No Distress Cardiology CV Exam: Regular, Normal Sinus Rhythm, Good Perfusion Gastrointestinal/Abdomen GI Exam: Soft, Non-Tender Integumentary Skin Exam: Clear, Normal Turgor Extremeties Extremities Exam: Moderate Edema (involving upper and lower extremities.) Neurologic Neuro Exam: Alert, Awake, Oriented, Speech Clear, Moving All Extremities Assessment/Plan Discussed Condition With: Patient Problem List: (1) Proteinuria ICD Codes: R80.9 - Proteinuria, unspecified Plan: Based on clinical presentation as well as preliminary laboratory results patient clearly has nephrotic syndrome etiology to be determined. I discussed with the patient types of glomerulonephritis can be commonly associated with nephrotic syndrome as well as precipitating etiologies and treatment options available however a kidney biopsy will is required for definitive diagnosis to aid in management. I discussed with him indications for, alternatives to and risks associated with kidney biopsy including possible development of severe hemorrhage requiring blood transfusion, possible surgical intervention as well as kidney loss. We also discussed possible development of a AV dialysis fistula needing surgical repair as well as a risk of associated with kidney biopsy. I recommended that we proceed with a kidney biopsy after assessing risk-benefit ratio. At this time the patient indicated to me that he does wish to proceed with a biopsy for definitive diagnosis. Literature regarding nephrotic syndrome was reviewed with him also. His laboratory results available today were reviewed with him in detail with counseling. Hopefully the kidney biopsy can be performed by radiology tomorrow otherwise it will have to be delayed until next week as renal biopsy are not performed by that department on Saturday or Saturday. Differential diagnosis includes membranous nephropathy, minimal change disease, lupus, FSGS, membranoproliferative disease, and IgA nephropathy. As discussed with the patient, we will like have to perform a kidney biopsy for definitive diagnosis for definitive treatment if possible. He was provided a handout describing procedure if indicated. Will follow with labs in the AM (2) Hypertension ICD Codes: I10 - Essential (primary) hypertension Plan: Has been started on ACEi and Norvasc per primary team (3) Edema ICD Codes: R60.9 - Edema, unspecified Plan: Given the poor response of furosemide today with increased dosage and add 1 dose Diuril. Problem Qualifiers (1) Proteinuria: Qualified Codes: R80.9 - Proteinuria, unspecified (2) Hypertension: Qualified Codes: I10 - Essential (primary) hypertension (3) Edema: Qualified Codes: R60.9 - Edema, unspecified Terence Bell MD Mar 27, 2017 17:20
[2017-03-27] MEDS ORDERED: POTASSIUM CHLORIDE 20 MEQ CONTROLLED RELEASE TAB PO ONE (18:00)
[2017-03-27] MEDS ORDERED: CHLOROTHIAZIDE SOD 500 MG VIAL IV ONE (18:30)
[2017-03-28] VITALS (11 sets, daily range): BP systolic 121–157; BP diastolic 60–83; PULSE 75–90; RESP 18–22; TEMP 97.4–98.3; O2SAT 93–98
[2017-03-28 04:54] LABS: AUTOMATED NEUTROPHIL # 5.5 TH/MM3 (1.8-7.7); BASOPHIL % 0.4 % (0.0-2.0); EOSINOPHIL # 0.2 TH/MM3 (0-0.4); EOSINOPHIL % 1.8 % (0.0-4.0); HEMATOCRIT 40.4 % (39.0-51.0); HEMO FLAGS DIFF FINAL; LYMPH % 24.6 % (9.0-44.0); LYMPHOCYTE # 2.2 TH/MM3 (1.0-4.8); MEAN CELL VOLUME 74.1 FL (80.0-100.0); MEAN CORPUSCULAR HEMOGLOBIN 24.5 PG (27.0-34.0); MEAN CORPUSCULAR HGB CONC 33.1 % (32.0-36.0); MONO % 11.2 % (0.0-8.0); PLATELET COUNT 304 TH/MM3 (150-450); RED BLOOD COUNT 5.45 MIL/MM3 (4.50-5.90); RED CELL DISTRIBUTION WIDTH 14.3 % (11.6-17.2); WHITE BLOOD COUNT 8.9 TH/MM3 (4.0-11.0)
[2017-03-28 05:11] LABS: ANION GAP 5 MEQ/L (5-15); AST (GOT) 24 U/L (15-37); BICARBONATE 26.1 MEQ/L (21.0-32.0); BLOOD UREA NITROGEN 22 MG/DL (7-18); CHLORIDE 98 MEQ/L (98-107); GLOMERULAR FILTRATION RATE 92 ML/MIN (>89); MAGNESIUM 2.7 MG/DL (1.5-2.5); POTASSIUM 4.2 MEQ/L (3.5-5.1); SODIUM (NA) 129 MEQ/L (136-145)
[2017-03-28 05:20] LABS: ALKALINE PHOSPHATASE 61 U/L (45-117); ALT (GPT) 24 U/L (12-78); FREE T4 0.75 NG/DL (0.76-1.46); TOTAL BILIRUBIN ADULT 0.3 MG/DL (0.2-1.0)
[2017-03-28 07:25] LABS: URINE TOTAL PROTEIN TIMED 754.9 MG/DL
[2017-03-28] MEDS: SODIUM CHLORIDE 0.9% FLUSH 10 ML FLUSH IV FLUSH SCH ×2 (09:00→21:00)
[2017-03-28] MEDS: ATORVASTATIN 80 MG TAB PO SCH (09:00)
[2017-03-28] MEDS: FAMOTIDINE 20 MG TAB PO SCH ×2 (09:57→22:05)
[2017-03-28] MEDS: FUROSEMIDE 20 MG/2 ML VIAL IV PUSH SCH (09:57)
[2017-03-28] MEDS: DOCUSATE SODIUM 50 MG/SENNA 8.6 MG TAB PO SCH ×2 (09:58→21:00)
[2017-03-28] MEDS: LISINOPRIL 10 MG TAB PO SCH ×2 (09:58→22:05)
[2017-03-28] MEDS: amLODIPine BESYLATE 5 MG TAB PO SCH (09:58)
[2017-03-28 10:57] LABS: CREAT 24 TIMED 143.9 MG/DL
[2017-03-28 11:12] LABS: HEMOGLOBIN A1a 0.8 %; HEMOGLOBIN A1b 1.5 %; HEMOGLOBIN Ao 86.8 %; HEMOGLOBIN LA1C 1.9 %; HEMOGLOBIN P3 3.4 %
[2017-03-28] MEDS ORDERED: MIDAZOLAM HCL 5 MG/5 ML VIAL ONE (12:30)
[2017-03-28] MEDS ORDERED: LIDOCAINE HCL 1% 20 ML VIAL ONE (12:46)
--- NOTE | 2017-03-28 13:50 | PD.RAD ---
Post CT Procedure Prog Note Pre Procedure Diagnosis: (1) Nephrotic syndrome (2) Proteinuria Post Procedure Diagnosis: Procedure Date: Mar 28, 2017 Supervising Radiologist: Erickson Hughes Proceduralist/Assist: jere rae Estimated blood loss: none Anesthesia: Conscious Sedation Plan of Activity Patient to Unit: [facility] Patient Condition: Good See PACS Report for procedural detail/treatment Erickson Hughes MD Mar 28, 2017 13:50
[2017-03-28] MEDS ORDERED: HYDROmorphone HCL 2 MG TAB PO PRN (14:00)
[2017-03-28 14:42] LABS: AUTOMATED NEUTROPHIL # 7.5 TH/MM3 (1.8-7.7); BASOPHIL % 0.3 % (0.0-2.0); EOSINOPHIL # 0.1 TH/MM3 (0-0.4); EOSINOPHIL % 0.8 % (0.0-4.0); HEMATOCRIT 40.7 % (39.0-51.0); HEMO FLAGS DIFF FINAL; LYMPH % 13.2 % (9.0-44.0); LYMPHOCYTE # 1.3 TH/MM3 (1.0-4.8); MEAN CELL VOLUME 74.1 FL (80.0-100.0); MEAN CORPUSCULAR HEMOGLOBIN 24.8 PG (27.0-34.0); MEAN CORPUSCULAR HGB CONC 33.5 % (32.0-36.0); MONO % 8.4 % (0.0-8.0); NEUT % 77.3 % (16.0-70.0); PLATELET COUNT 285 TH/MM3 (150-450); RED CELL DISTRIBUTION WIDTH 14.5 % (11.6-17.2); WHITE BLOOD COUNT 9.7 TH/MM3 (4.0-11.0)
--- NOTE | 2017-03-28 15:15 | RADRPT ---
EXAM DATE/TIME: 03/28/2017 13:09 [facility] COMPARISON: No previous studies available for comparison. INDICATIONS : Acute nephrotic syndrome. SEDATION TIME: 30 minutes BIOPSY SITE: Left MEDICATION(S): 1.) 3 mg midazolam (Versed) IV 2.) 150 mcg fentanyl (Sublimaze) DEVICE(S): 1.) 20 gauge Temno core biopsy needle MEDICAL HISTORY : None. SURGICAL HISTORY : None. ENCOUNTER: Initial ACUITY: 1 day PAIN SCORE: 1/10 LOCATION: Left A total of two core specimen(s) were obtained and sent to the laboratory for pathologic evaluation. PROCEDURE: 1. CT guided renal biopsy. 2. Conscious sedation with continuous EKG and oximetry monitoring. Prior to the procedure informed consent was obtained. Any appropriate prior imaging studies were rev iewed. Using automated exposure control and adjustment of the mA and/or kV according to patient size, radiat ion dose was kept as low as reasonably achievable to obtain optimal diagnostic quality images. DICOM format image data is available electronically for review and comparison. The site was prepped in a sterile fashion. Full sterile technique was used, including cap, mask, denise rile gloves and gown and a large sterile sheet. Hand hygiene and 2% chlorhexidine and/or betadine/al cohol prep was utilized per protocol for cutaneous antisepsis. The skin and subcutaneous tissues wer e infiltrated with local anesthetic solution. With CT guidance the previously identified target was localized. Biopsy was performed using the presc ribed needle as above. Adequate hemostasis was obtained with compression at the puncture site. Follow-up CT scan reveals no hemorrhage. The patient tolerated the procedure well and there were no complications. The patient was returned to the Radiology Outpatient Unit in stable condition. CONCLUSION: Uncomplicated CT guided biopsy of the lower pole left kidney. Erickson Hughes MD on March 28, 2017 at 15:13 Board Certified Radiologist. This report was verified electronically.
--- NOTE | 2017-03-28 16:09 | HHI.PR ---
Subjective Remarks Pt has no complaints. No pain. just had kidney biopsy. no CP/SOB/N/V states that the swelling in his legs is about the same. He tells me that prior to him noticing the swelling he did have flu like symptoms. he doesn't have a PCP. Objective Vitals Vital Signs Date Time Temp Pulse Resp B/P (MAP) Pulse Ox O2 Delivery O2 Flow Rate FiO2 03/28/17 15:00 76 19 132/71 (91) 95 03/28/17 14:45 77 18 132/70 (90) 94 03/28/17 14:30 76 19 128/71 (90) 94 03/28/17 14:15 76 18 134/70 (91) 94 03/28/17 12:00 97.9 76 18 128/75 (92) 96 03/28/17 10:14 93 21 03/28/17 10:00 75 03/28/17 08:00 98.3 82 18 130/72 (91) 95 03/28/17 05:00 98.3 78 18 157/83 (107) 98 03/28/17 00:43 98.3 78 18 146/80 (102) 98 03/27/17 20:44 97.5 76 20 176/89 (118) 98 03/27/17 16:00 96.9 88 18 135/80 (98) 98 I/O 03/27/17 03/27/17 03/27/17 03/28/17 03/28/17 03/28/17 07:00 15:00 23:00 07:00 15:00 23:00 Intake Total 480 ml 240 ml Output Total 400 ml 420 ml Balance 480 ml -160 ml -420 ml Intake Oral 480 ml 240 ml Output Urine Total 400 ml 420 ml # Bowel Movements 1 Result Diagram: 03/28/17 1422 03/28/17 0425 Imaging Last Impressions Renal Biopsy CT 03/28/17 0000 Signed Impressions: Service Date/Time: March 13:09 - CONCLUSION: Uncomplicated CT guided biopsy of the lower pole left kidney. Erickson Hughes MD Chest X-Ray 03/26/17 1536 Signed Impressions: Service Date/Time: Sunday, March 26, 2017 15:42 - CONCLUSION: 1. Mild basilar airspace disease with probable trace pleural fluid. Deepak Figueroa MD Renal Ultrasound 03/26/17 0000 Signed Impressions: Service Date/Time: Sunday, March 26, 2017 18:31 - CONCLUSION: 1. No evidence of hydronephrosis, mass or stone. 2. Unremarkable urinary bladder. 3. Bilateral pleural effusions. 4. Minimal ascites within the upper abdomen. Daryl Monahan MD Objective Remarks GENERAL: laying in bed EYES: Extraocular motions intact. ENT: Nose without drainage. Airway patent. NECK: Trachea midline. CARDIOVASCULAR: Regular rate and rhythm without murmurs RESPIRATORY: Clear to auscultation. Breath sounds equal bilaterally. No wheezes GASTROINTESTINAL: Abdomen soft, non-tender, nondistended. MUSCULOSKELETAL: Extremities positive +2 bilateral lower extremity edema non pitting NEUROLOGICAL: Awake and alert. Cranial nerves II through XII intact. Motor and sensory grossly within normal limits. Insight and judgment is good Mood and behaviors appropriate A/P Problem List: (1) Nephrotic syndrome ICD Code: N04.9 - Nephrotic syndrome with unspecified morphologic changes (2) Edema ICD Code: R60.9 - Edema, unspecified (3) Proteinuria ICD Code: R80.9 - Proteinuria, unspecified (4) Hypoalbuminemia ICD Code: E88.09 - Other disorders of plasma-protein metabolism, not elsewhere classified (5) Hypertension ICD Code: I10 - Essential (primary) hypertension (6) Hyperlipidemia ICD Code: E78.5 - Hyperlipidemia, unspecified (7) Hypertriglyceridemia ICD Code: E78.1 - Pure hyperglyceridemia Assessment and Plan Nephrotic syndrome has proteinuria -has edema-has hypoalbuminemia; on Fluid restriction, nephrology following, s/p kidney biopsy today. Nephrology following. Other labwork pending. Accurate I's and O's. Daily weights. kidney u/ s w no evidence of hydronephrosis, stones. 24 [place] [id number] Hyperlipidemia:-TG 285, T. Cholesterol 748 and LDL 639, HDL 52. on lipitor HTN urgency: much better controlled on amlodipine, lisinopril Edema: on lasix scheduled. monitor potassium levels. s/p one dose of chlorithiazide IV HbA1C 5.1 SCDs bilateral lower extremities Discharge Planning when cleared by nephrology kidney biopsy results pending. Problem Qualifiers (1) Edema: Qualified Codes: R60.9 - Edema, unspecified (2) Proteinuria: Qualified Codes: R80.9 - Proteinuria, unspecified (3) Hypertension: Qualified Codes: I10 - Essential (primary) hypertension Jocelyn Durán MD Mar 28, 2017 16:09
[2017-03-28 17:28] LABS: BASOPHIL % 0.2 % (0.0-2.0); EOSINOPHIL # 0.1 TH/MM3 (0-0.4); EOSINOPHIL % 0.8 % (0.0-4.0); HEMATOCRIT 41.5 % (39.0-51.0); HEMO FLAGS DIFF FINAL; LYMPH % 16.7 % (9.0-44.0); LYMPHOCYTE # 1.4 TH/MM3 (1.0-4.8); MEAN CELL VOLUME 75.2 FL (80.0-100.0); MEAN CORPUSCULAR HEMOGLOBIN 25.1 PG (27.0-34.0); MEAN CORPUSCULAR HGB CONC 33.4 % (32.0-36.0); MONO % 9.7 % (0.0-8.0); NEUT % 72.6 % (16.0-70.0); PLATELET COUNT 280 TH/MM3 (150-450); RED BLOOD COUNT 5.52 MIL/MM3 (4.50-5.90); RED CELL DISTRIBUTION WIDTH 14.2 % (11.6-17.2); WHITE BLOOD COUNT 8.2 TH/MM3 (4.0-11.0)
--- NOTE | 2017-03-28 17:32 | HHI.NPPN ---
Subjective History of Present Illness The patient is a 27 yo male who presented to the ED today for evaluation of swelling, SOB, and flu-like symptoms. 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 Reports that prior to the last few weeks, he has been in excellent health. Started noting the aforementioned symptoms approximately 3 weeks ago that has worsening in the past few days. Denies diabetic hx, no NSAID use, not hypertensive, denies hx of syphilis, hepatitis, nor HIV infection. No known family history of renal issues. Admitting SCr 0.9 and eGFR of 94 Serum albumin at 1.0. UA showed >600mg/dL on random UA all raising concern for nephrotic syndrome. Interval History Pt s/p kidney biopsy this AM. Uncomplicated Reports he is feeling uncomfortable and bloated. Feels as though he can't urinate. (Sara Jesus) Review of Systems General Constitutional: Weight Change (Sara Jesus) Cardiovascular Cardiac: Edema (Sara Jesus) Gastrointestinal Gastrointestinal: Abdominal Pain (Sara Jesus) Objective Data Data Vital Signs Date Time Temp Pulse Resp B/P (MAP) Pulse Ox O2 Delivery O2 Flow Rate FiO2 03/28/17 15:00 76 19 132/71 (91) 95 03/28/17 14:45 77 18 132/70 (90) 94 03/28/17 14:30 76 19 128/71 (90) 94 03/28/17 14:15 76 18 134/70 (91) 94 03/28/17 12:00 97.9 76 18 128/75 (92) 96 03/28/17 10:14 93 21 03/28/17 10:00 75 03/28/17 08:00 98.3 82 18 130/72 (91) 95 03/28/17 05:00 98.3 78 18 157/83 (107) 98 03/28/17 00:43 98.3 78 18 146/80 (102) 98 03/27/17 20:44 97.5 76 20 176/89 (118) 98 (Sara Jesus) -: 03/28/17 1422 03/28/17 0425 Imaging Last Impressions Renal Biopsy CT 03/28/17 0000 Signed Impressions: Service Date/Time: March 13:09 - CONCLUSION: Uncomplicated CT guided biopsy of the lower pole left kidney. Erickson Hughes MD Chest X-Ray 03/26/17 1536 Signed Impressions: Service Date/Time: Sunday, March 26, 2017 15:42 - CONCLUSION: 1. Mild basilar airspace disease with probable trace pleural fluid. Deepak Figueroa MD Renal Ultrasound 03/26/17 0000 Signed Impressions: Service Date/Time: Sunday, March 26, 2017 18:31 - CONCLUSION: 1. No evidence of hydronephrosis, mass or stone. 2. Unremarkable urinary bladder. 3. Bilateral pleural effusions. 4. Minimal ascites within the upper abdomen. Daryl Monahan MD Medication Review Current Medications Medications (Trade) Dose Ordered Sig/Puma Route Start Time Stop Time Status Last Admin (Catapres) 0.1 mg Q4H PRN PO 03/26/17 18:00 (Prinivil) 10 mg Q12HR PO 03/26/17 21:00 03/28/17 09:58 (Norvasc) 5 mg DAILY PO 03/27/17 09:00 03/28/17 09:58 (NS Flush) 2 ml UNSCH PRN IV FLUSH 03/26/17 18:00 (NS Flush) 2 ml BID IV FLUSH 03/26/17 21:00 03/28/17 09:00 (Tylenol) 650 mg Q4H PRN PO 03/26/17 18:00 (Zofran Inj) 4 mg Q6H PRN IVP 03/26/17 18:00 (Compazine Supp) 25 mg Q12H PRN RECTAL 03/26/17 18:00 (Ambien) 5 mg HS PRN PO 03/26/17 18:00 (Tylenol) 650 mg Q6H PRN PO 03/26/17 18:00 03/27/17 05:08 (Percocet 5-325 Mg) 1 tab Q6H PRN PO 03/26/17 18:00 (Percocet 10-325 Mg) 1 tab Q6H PRN PO 03/26/17 18:00 (Morphine Inj) 2 mg Q3H PRN IV PUSH 03/26/17 18:00 (Morphine Inj) 4 mg Q3H PRN IV PUSH 03/26/17 18:00 (Narcan Inj) 0.4 mg UNSCH PRN IV PUSH 03/26/17 18:00 (Radha-Colace) 1 tab BID PO 03/26/17 21:00 03/28/17 09:58 (Milk Of Magnesia Liq) 30 ml Q12H PRN PO 03/26/17 18:00 (Senokot) 17.2 mg Q12H PRN PO 03/26/17 18:00 (Dulcolax Supp) 10 mg DAILY PRN RECTAL 03/26/17 18:00 (Lactulose Liq) 30 ml DAILY PRN PO 03/26/17 18:00 (Pepcid) 20 mg BID PO 03/26/17 21:00 03/28/17 09:57 (Lipitor) 80 mg DAILY PO 03/27/17 11:00 03/28/17 09:00 (Lasix Inj) 40 mg BID@,18 IV PUSH 03/27/17 18:00 03/28/17 09:57 (Dilaudid) 1 mg Q6H PRN PO 03/28/17 14:00 03/28/17 23:59 (Sara Jesus) Physical Exam General Appearance: Well Nourished, No Acute Distress, Comfortable (Sara Jesus) Eyes Eye Exam: Sclera White (Sara Jesus) Throat Throat Exam: Oral Mucosa [place] & Moist (Sara Jesus) Pulmonary Resp Exam: Clear Bilaterally, Breath Sounds Equal, No Distress (Sara Jesus) Cardiology CV Exam: Regular, Normal Sinus Rhythm, Good Perfusion (Sara Jesus) Gastrointestinal/Abdomen GI Exam: Soft, Non-Tender (Sara Jesus) Integumentary Skin Exam: Clear, Normal Turgor (Sara Jesus) Extremeties Extremities Exam: Moderate Edema (involving upper and lower extremities.) (Sara Jesus) Neurologic Neuro Exam: Alert, Awake, Oriented, Speech Clear, Moving All Extremities (Sara Jesus) Assessment/Plan Discussed Condition With: Patient Problem List: (1) Proteinuria ICD Codes: R80.9 - Proteinuria, unspecified Plan: 24h urine protein quantification of 10,569mg. s/p biopsy this AM. Hopefully results will be back within the next 24-48h Renal functions stable Differential diagnosis includes membranous nephropathy, minimal change disease, lupus, FSGS, membranoproliferative disease, and IgA nephropathy. As discussed with the patient, we will like have to perform a kidney biopsy for definitive diagnosis for definitive treatment if possible. He was provided a handout describing procedure if indicated. Will follow with labs in the AM (2) Hypertension ICD Codes: I10 - Essential (primary) hypertension Plan: Improved with medication. Monitor (3) Edema ICD Codes: R60.9 - Edema, unspecified Plan: Still not responsive to Furosemide and Diuril Change to Bumex 1mg q12h (Sara Jesus) Plan The exam, history, and the medical decision-making described in the above note were completed with the assistance of the SHANE. I reviewed and agree with the findings presented. (Terence Bell MD) Problem Qualifiers (1) Proteinuria: Qualified Codes: R80.9 - Proteinuria, unspecified (2) Hypertension: Qualified Codes: I10 - Essential (primary) hypertension (3) Edema: Qualified Codes: R60.9 - Edema, unspecified Sara Jesus Mar 28, 2017 17:32 Terence Bell MD Mar 29, 2017 15:21
[2017-03-28] MEDS: BUMETANIDE INJ 1 MG/4 ML VIAL IV PUSH SCH (18:33)
[2017-03-28 21:18] LABS: ALBUMIN SPE 1.34 GM/DL (3.50-5.00)
[2017-03-29] VITALS: BP 137/70; PULSE 84; RESP 18; TEMP 99; O2SAT 98
[2017-03-29 04:00] VITALS: BP 138/63; PULSE 80; RESP 18; TEMP 96.4; O2SAT 95
[2017-03-29 07:18] LABS: HEMATOCRIT 42.5 % (39.0-51.0); MEAN CELL VOLUME 74.4 FL (80.0-100.0); MEAN CORPUSCULAR HEMOGLOBIN 24.2 PG (27.0-34.0); MEAN CORPUSCULAR HGB CONC 32.5 % (32.0-36.0); PLATELET COUNT 365 TH/MM3 (150-450); RED BLOOD COUNT 5.72 MIL/MM3 (4.50-5.90); RED CELL DISTRIBUTION WIDTH 14.5 % (11.6-17.2); REVIEW FLAG FINAL; WHITE BLOOD COUNT 11.4 TH/MM3 (4.0-11.0)
[2017-03-29 07:46] LABS: BICARBONATE 24.6 MEQ/L (21.0-32.0); POTASSIUM 4.2 MEQ/L (3.5-5.1)
[2017-03-29 08:00] VITALS: BP 134/76; PULSE 88; RESP 18; TEMP 98.5; O2SAT 96
--- NOTE | 2017-03-29 09:29 | HHI.PR ---
Subjective Remarks 27-year-old male complains of edema bilateral lower extremities and a generalized swelling in the abdomen as well as some shortness of breath at times. He believes he's gained about 10 pounds in approximately 3 weeks. Last night he noticed ankle edema for the first time. Urination has been normal. Diet has been normal. No fever. No rash. No similar prior episodes. He denies past medical history of any significance. No new or different medication. Onset gradual. Timing constant. Elevated blood pressure here 03-28 had kidney biopsy of left kidney on 03-28 MEDICATIONS ADJUSTED TO BUMEX INSTEAD OF LASIX NOW HAS A DRY COUGH WILL SWITCH OFF GEORGE AND GO TO ARB DW RN AND PATIENT HX OF VIRAL SYNDROME PRIOR TO COMING TO THE HOSPITAL?? Objective Vitals Vital Signs Date Time Temp Pulse Resp B/P (MAP) Pulse Ox O2 Delivery O2 Flow Rate FiO2 03/29/17 08:00 98.5 88 18 134/76 (95) 96 03/29/17 04:00 96.4 80 18 138/63 (88) 95 03/29/17 00:00 99.0 84 18 137/70 (92) 98 03/28/17 20:00 97.4 90 22 121/60 (80) 98 03/28/17 15:00 76 19 132/71 (91) 95 03/28/17 14:45 77 18 132/70 (90) 94 03/28/17 14:30 76 19 128/71 (90) 94 03/28/17 14:15 76 18 134/70 (91) 94 03/28/17 12:00 97.9 76 18 128/75 (92) 96 03/28/17 10:14 93 21 03/28/17 10:00 75 I/O 03/28/17 03/28/17 03/28/17 03/29/17 03/29/17 03/29/17 07:00 15:00 23:00 07:00 15:00 23:00 Intake Total 240 ml 990 ml Output Total 420 ml 325 ml Balance -420 ml -85 ml 990 ml Intake Oral 240 ml 990 ml Output Urine Total 420 ml 325 ml # Voids 2 # Bowel Movements 0 Result Diagram: 03/29/17 0630 03/29/17 0630 Other Results Laboratory Tests Test 03/26/17 15:53 03/26/17 15:57 03/26/17 21:00 03/26/17 22:04 Urine Color YELLOW Urine Turbidity CLEAR Urine pH 6.5 Urine Specific [place] 1.010 Urine Protein GREATER THAN 600 mg/dL Urine Glucose (UA) NEG mg/dL Urine Ketones NEG mg/dL Urine Occult Blood SMALL Urine Nitrite NEG Urine Bilirubin NEG Urine Urobilinogen LESS THAN 2.0 MG/DL Urine Leukocyte Esterase NEG Urine RBC 1 /hpf Urine WBC 6 /hpf Urine Bacteria RARE /hpf Microscopic Urinalysis Comment CULT NOT INDICATED Urine Random Creatinine 128 MG/DL Urine Random Total Protein 1065 MG/DL Urine Protein/Creatinine Ratio 8.32 Urine Immunofixation White Blood Count 6.6 TH/MM3 Red Blood Count 6.24 MIL/MM3 Hemoglobin 15.1 GM/DL Hematocrit 46.5 % Mean Corpuscular Volume 74.5 FL Mean Corpuscular Hemoglobin 24.2 PG Mean Corpuscular Hemoglobin Concent 32.5 % Red Cell Distribution Width 14.6 % Platelet Count 348 TH/MM3 Mean Platelet Volume 8.0 FL Neutrophils (%) (Auto) 56.4 % Lymphocytes (%) (Auto) 31.7 % Monocytes (%) (Auto) 9.1 % Eosinophils (%) (Auto) 2.1 % Basophils (%) (Auto) 0.7 % Neutrophils # (Auto) 3.7 TH/MM3 Lymphocytes # (Auto) 2.1 TH/MM3 Monocytes # (Auto) 0.6 TH/MM3 Eosinophils # (Auto) 0.1 TH/MM3 Basophils # (Auto) 0.0 TH/MM3 CBC Comment DIFF FINAL Differential Comment Blood Urea Nitrogen 18 MG/DL Creatinine 0.97 MG/DL Random Glucose 99 MG/DL Total Protein 5.4 GM/DL 5.1 GM/DL Albumin 1.0 GM/DL 1.34 GM/DL Calcium Level 7.9 MG/DL Alkaline Phosphatase 70 U/L Aspartate Amino Transf (AST/SGOT) 47 U/L Alanine Aminotransferase (ALT/SGPT) 49 U/L Total Bilirubin 0.2 MG/DL Sodium Level 132 MEQ/L Potassium Level 4.4 MEQ/L Chloride Level 101 MEQ/L Carbon Dioxide Level 24.6 MEQ/L Anion Gap 6 MEQ/L Estimat Glomerular Filtration Rate 94 ML/MIN Total Creatine Kinase 131 U/L 127 U/L Troponin I LESS THAN 0.02 NG/ML LESS THAN 0.02 NG/ML B-Type Natriuretic Peptide LESS THAN 2 PG/ML Complement C3 160 MG/DL Complement C4 48 MG/DL Prothrombin Time 11.6 SEC Prothromb Time International Ratio 1.0 RATIO Activated Partial Thromboplast Time 33.4 SEC Albumin/Globulin Ratio 0.36 Xvaam-3-Xtnsimdqi 0.20 GM/DL Ujxqf-1-Bjhdyflav 1.70 GM/DL Beta Globulins 1.30 GM/DL Gamma Globulins 0.56 GM/DL Triglycerides Level 285 MG/DL Cholesterol Level 748 MG/DL LDL Cholesterol 639 MG/DL HDL Cholesterol 52.4 MG/DL Cholesterol/HDL Ratio 14.27 RATIO Test 03/27/17 10:38 03/27/17 10:45 03/28/17 04:25 03/28/17 06:00 White Blood Count 7.3 TH/MM3 8.9 TH/MM3 Red Blood Count 5.73 MIL/MM3 5.45 MIL/MM3 Hemoglobin 14.2 GM/DL 13.4 GM/DL Hematocrit 42.4 % 40.4 % Mean Corpuscular Volume 74.0 FL 74.1 FL Mean Corpuscular Hemoglobin 24.8 PG 24.5 PG Mean Corpuscular Hemoglobin Concent 33.5 % 33.1 % Red Cell Distribution Width 14.5 % 14.3 % Platelet Count 312 TH/MM3 304 TH/MM3 Mean Platelet Volume 8.0 FL 8.3 FL Neutrophils (%) (Auto) 58.3 % 62.0 % Lymphocytes (%) (Auto) 27.0 % 24.6 % Monocytes (%) (Auto) 12.2 % 11.2 % Eosinophils (%) (Auto) 1.9 % 1.8 % Basophils (%) (Auto) 0.6 % 0.4 % Neutrophils # (Auto) 4.3 TH/MM3 5.5 TH/MM3 Lymphocytes # (Auto) 2.0 TH/MM3 2.2 TH/MM3 Monocytes # (Auto) 0.9 TH/MM3 1.0 TH/MM3 Eosinophils # (Auto) 0.1 TH/MM3 0.2 TH/MM3 Basophils # (Auto) 0.0 TH/MM3 0.0 TH/MM3 CBC Comment DIFF FINAL DIFF FINAL Differential Comment Blood Urea Nitrogen 21 MG/DL 22 MG/DL Creatinine 1.11 MG/DL 0.98 MG/DL Random Glucose 95 MG/DL 93 MG/DL Total Protein 4.8 GM/DL 4.6 GM/DL Albumin 1.0 GM/DL 0.8 GM/DL Calcium Level 8.1 MG/DL 7.5 MG/DL Phosphorus Level 4.6 MG/DL 3.9 MG/DL Magnesium Level 2.7 MG/DL 2.7 MG/DL Alkaline Phosphatase 66 U/L 61 U/L Aspartate Amino Transf (AST/SGOT) 29 U/L 24 U/L Alanine Aminotransferase (ALT/SGPT) 32 U/L 24 U/L Total Bilirubin 0.2 MG/DL 0.3 MG/DL Sodium Level 131 MEQ/L 129 MEQ/L Potassium Level 4.3 MEQ/L 4.2 MEQ/L Chloride Level 98 MEQ/L 98 MEQ/L Carbon Dioxide Level 25.8 MEQ/L 26.1 MEQ/L Anion Gap 7 MEQ/L 5 MEQ/L Estimat Glomerular Filtration Rate 80 ML/MIN 92 ML/MIN Hemoglobin A1c 5.1 % 5.1 % Free Thyroxine 0.63 NG/DL 0.75 NG/DL Thyroid Stimulating Hormone 3rd Gen 4.970 uIU/ML 5.850 uIU/ML Rapid Plasma Reagin NON-REACTIVE Hepatitis A IgM Antibody NEGATIVE Hepatitis B Surface Antigen NEGATIVE Hepatitis B Core IgM Antibody NEGATIVE Hepatitis C Antibody NEGATIVE HIV (1&2) Antibody NEGATIVE Urine Total Volume 24 Hours 1400 ML Urine Total Protein 24 Hour 00199 MG/24HR Test 03/28/17 14:22 03/28/17 16:30 03/29/17 06:30 White Blood Count 9.7 TH/MM3 8.2 TH/MM3 11.4 TH/MM3 Red Blood Count 5.50 MIL/MM3 5.52 MIL/MM3 5.72 MIL/MM3 Hemoglobin 13.6 GM/DL 13.9 GM/DL 13.8 GM/DL Hematocrit 40.7 % 41.5 % 42.5 % Mean Corpuscular Volume 74.1 FL 75.2 FL 74.4 FL Mean Corpuscular Hemoglobin 24.8 PG 25.1 PG 24.2 PG Mean Corpuscular Hemoglobin Concent 33.5 % 33.4 % 32.5 % Red Cell Distribution Width 14.5 % 14.2 % 14.5 % Platelet Count 285 TH/MM3 280 TH/MM3 365 TH/MM3 Mean Platelet Volume 8.0 FL 8.6 FL 8.3 FL Neutrophils (%) (Auto) 77.3 % 72.6 % Lymphocytes (%) (Auto) 13.2 % 16.7 % Monocytes (%) (Auto) 8.4 % 9.7 % Eosinophils (%) (Auto) 0.8 % 0.8 % Basophils (%) (Auto) 0.3 % 0.2 % Neutrophils # (Auto) 7.5 TH/MM3 6.0 TH/MM3 Lymphocytes # (Auto) 1.3 TH/MM3 1.4 TH/MM3 Monocytes # (Auto) 0.8 TH/MM3 0.8 TH/MM3 Eosinophils # (Auto) 0.1 TH/MM3 0.1 TH/MM3 Basophils # (Auto) 0.0 TH/MM3 0.0 TH/MM3 CBC Comment DIFF FINAL DIFF FINAL Differential Comment Blood Urea Nitrogen 25 MG/DL Creatinine 0.90 MG/DL Random Glucose 85 MG/DL Albumin 0.9 GM/DL Calcium Level 8.0 MG/DL Phosphorus Level 3.7 MG/DL Sodium Level 128 MEQ/L Potassium Level 4.2 MEQ/L Chloride Level 96 MEQ/L Carbon Dioxide Level 24.6 MEQ/L Anion Gap 7 MEQ/L Estimat Glomerular Filtration Rate 102 ML/MIN Imaging Last Impressions Renal Biopsy CT 03/28/17 0000 Signed Impressions: Service Date/Time: March 13:09 - CONCLUSION: Uncomplicated CT guided biopsy of the lower pole left kidney. Erickson Hughes MD Chest X-Ray 03/26/17 1536 Signed Impressions: Service Date/Time: Sunday, March 26, 2017 15:42 - CONCLUSION: 1. Mild basilar airspace disease with probable trace pleural fluid. Deepak Figueroa MD Renal Ultrasound 03/26/17 0000 Signed Impressions: Service Date/Time: Sunday, March 26, 2017 18:31 - CONCLUSION: 1. No evidence of hydronephrosis, mass or stone. 2. Unremarkable urinary bladder. 3. Bilateral pleural effusions. 4. Minimal ascites within the upper abdomen. Daryl Monahan MD Objective Remarks GENERAL: This is a well-nourished, well-developed patient, in no apparent distress. SKIN: No rashes, ecchymoses or lesions. Cool and dry. +2 bilateral lower extremity edema HEAD: Atraumatic. Normocephalic. No temporal or scalp tenderness. EYES: Pupils equal round and reactive. Extraocular motions intact. No scleral icterus. No injection or drainage. ENT: Nose without bleeding, purulent drainage or septal hematoma. Throat without erythema, tonsillar hypertrophy or exudate. Uvula midline. Airway patent. NECK: Trachea midline. No JVD or lymphadenopathy. Supple, nontender, no meningeal signs. CARDIOVASCULAR: Regular rate and rhythm without murmurs, gallops, or rubs. S1 and S2 no S3 or S4 RESPIRATORY: Clear to auscultation. Breath sounds equal bilaterally. No wheezes , rales, or rhonchi. GASTROINTESTINAL: Abdomen soft, non-tender, nondistended. No hepato-splenomegaly , or palpable masses. No guarding. MUSCULOSKELETAL: Extremities without clubbing, cyanosis, positive +2 bilateral lower extremity edema no joint tenderness, effusion, or edema noted. No calf tenderness. Negative Homans sign bilaterally. NEUROLOGICAL: Awake and alert. Cranial nerves II through XII intact. Motor and sensory grossly within normal limits. Five out of 5 muscle strength in all muscle groups. Normal speech. Insight and judgment is good Mood and behaviors appropriate Procedures KIDNEY BIOPSY OF LEFT POLE OF KIDNEY 03-28 Medications and IVs Current Medications Sodium Chloride (NS Flush) 2 ml UNSCH PRN IVF FLUSH AFTER USING IV ACCESS; Start 03/26/17 at 15:45; Stop 03/26/17 at 18:09; Status DC Furosemide (Lasix Inj) 20 mg ONCE ONCE IV PUSH Last administered on 03/26/17 17:02; Start 03/26/17 at 17:00; Stop 03/26/17 at 17:01; Status DC Clonidine (Catapres) 0.1 mg Q4H PRN PO SBP>160, DBP>90; Start 03/26/17 at 18:00 Lisinopril (Prinivil) 10 mg Q12HR PO Last administered on 03/28/17 22:05; Start 03/26/17 at 21:00 Amlodipine Besylate (Norvasc) 5 mg ONCE ONCE PO Last administered on 18:28; Start 03/26/17 at 18:00; Stop 03/26/17 at 18:10; Status DC Amlodipine Besylate (Norvasc) 5 mg DAILY PO Last administered on 9/21/17at 09: 58; Start 03/27/17 at 09:00 Furosemide (Lasix Inj) 20 mg BID@,18 IV PUSH Last administered on 03/27/17 09:44; Start 03/26/17 at 18:00; Stop 03/27/17 at 17:16; Status DC Sodium Chloride (NS Flush) 2 ml UNSCH PRN IV FLUSH FLUSH AFTER USING IV ACCESS ; Start 03/26/17 at 18:00 Sodium Chloride (NS Flush) 2 ml BID IV FLUSH Last administered on 03/28/17 21: 00; Start 03/26/17 at 21:00 Acetaminophen (Tylenol) 650 mg Q4H PRN PO TEMP > 100.4; Start 03/26/17 at 18:00 Ondansetron HCl (Zofran Inj) 4 mg Q6H PRN IVP NAUSEA OR VOMITING; Start at 18:00 Prochlorperazine (Compazine Supp) 25 mg Q12H PRN RECTAL NAUSEA OR VOMITING; Start 03/26/17 at 18:00 Zolpidem Tartrate (Ambien) 5 mg HS PRN PO INSOMNIA; Start 03/26/17 at 18:00 Acetaminophen (Tylenol) 650 mg Q6H PRN PO PAIN SCALE 1 TO 2 Last administered on 03/27/17 05:08; Start 03/26/17 at 18:00 Oxycodone/ Acetaminophen (Percocet 5-325 Mg) 1 tab Q6H PRN PO PAIN SCALE 3 TO 5; Start 03/26/17 at 18:00 Oxycodone/ Acetaminophen (Percocet 10-325 Mg) 1 tab Q6H PRN PO PAIN SCALE 6 TO 10; Start 03/26/17 at 18:00 Morphine Sulfate (Morphine Inj) 2 mg Q3H PRN IV PUSH Pain 3-5; if unable to take PO; Start 03/26/17 at 18:00 Morphine Sulfate (Morphine Inj) 4 mg Q3H PRN IV PUSH Pain 6-10;if unable to take PO; Start 03/26/17 at 18:00 Naloxone HCl (Narcan Inj) 0.4 mg UNSCH PRN IV PUSH SEE LABEL COMMENTS; Start at 18:00 Senna/Docusate Sodium (Radha-Colace) 1 tab BID PO Last administered on 09:58; Start 03/26/17 at 21:00 Magnesium Hydroxide (Milk Of Magnesia Liq) 30 ml Q12H PRN PO MILD - MODERATE CONSTIPATION; Start 03/26/17 at 18:00 Sennosides (Senokot) 17.2 mg Q12H PRN PO MODERATE - SEVERE CONSTIPATION; Start 03/26/17 at 18:00 Bisacodyl (Dulcolax Supp) 10 mg DAILY PRN RECTAL SEVERE CONSITIPATION; Start at 18:00 Lactulose (Lactulose Liq) 30 ml DAILY PRN PO SEVERE CONSITIPATION; Start at 18:00 Famotidine (Pepcid) 20 mg BID PO Last administered on 03/28/17 22:05; Start at 21:00 Atorvastatin Calcium (Lipitor) 80 mg DAILY PO Last administered on 03/28/17 09 :00; Start 03/27/17 at 11:00 Furosemide (Lasix Inj) 40 mg BID@ IV PUSH Last administered on 03/28/17 09:57; Start 03/27/17 at 18:00; Stop 03/28/17 at 17:33; Status DC Potassium Chloride (KCl) 20 meq ONCE ONCE PO Last administered on 03/27/17 18 :06; Start 03/27/17 at 18:00; Stop 03/27/17 at 18:01; Status DC Chlorothiazide Sodium (Diuril Inj) 500 mg ONCE ONCE IV ; Start 03/27/17 at 18: 30; Stop 03/27/17 at 18:31; Status DC Fentanyl Citrate (fentaNYL INJ) 200 mcg STK-MED ONCE .ROUTE Last administered on 03/28/17 13:05; Start 03/28/17 at 12:29; Stop 03/28/17 at 12:30; Status DC Midazolam HCl (Versed Inj) 5 mg STK-MED ONCE .ROUTE Last administered on 13:05; Start 03/28/17 at 12:30; Stop 03/28/17 at 12:31; Status DC Lidocaine HCl (Xylocaine 1% Inj) 20 ml STK-MED ONCE .ROUTE Last administered on 03/28/17 12:46; Start 03/28/17 at 12:46; Stop 03/28/17 at 12:47; Status DC Hydromorphone HCl (Dilaudid) 1 mg Q6H PRN PO Pain post renal biopsy; Start at 14:00; Stop 03/28/17 at 23:59; Status DC Bumetanide (Bumex Inj) 1 mg BID@,18 IV PUSH Last administered on 03/28/17t 18 :33; Start 03/28/17 at 18:00 Urinary Catheter: No Vascular Central Line Catheter: No A/P Problem List: (1) Nephrotic syndrome ICD Code: N04.9 - Nephrotic syndrome with unspecified morphologic changes (2) Edema ICD Code: R60.9 - Edema, unspecified (3) Proteinuria ICD Code: R80.9 - Proteinuria, unspecified (4) Hypoalbuminemia ICD Code: E88.09 - Other disorders of plasma-protein metabolism, not elsewhere classified (5) Hypertension ICD Code: I10 - Essential (primary) hypertension (6) Hyperlipidemia ICD Code: E78.5 - Hyperlipidemia, unspecified (7) Hypertriglyceridemia ICD Code: E78.1 - Pure hyperglyceridemia (8) Hypothyroidism ICD Code: E03.9 - Hypothyroidism, unspecified Assessment and Plan Nephrotic syndrome has proteinuria -has edema-has hypoalbuminemia-has lipid issues Fluid restrict consult nephrology Started on GEORGE inhibitor- HAVING COUGH SWITCH TO ARB Calcium channel kailyn Accurate I's and O's Daily weights A.m. labs 24 hour urine in the process of being done Ultrasounds of bilateral kidney have been done SCDs bilateral lower extremities Hypertension SWITCH TO ARB and calcium channel kailyn SWITCHED TO BUMEX When necessary Catapres Hyperlipidemia and hypertriglyceridemia started on high-dose Lipitor Check thyroid panel SHOWS HYPOTHYROIDISM START ON SYNTHROID 25MCG DAILY Fasting lipid panel HIGH CHOLESTEROL AND TRIGLYCERIDES DVT and GI prophylaxis Discussed with patient and RN CHANGE TO ARB ADD SYNTHROID AM LABS Discharge Planning AWAIT PATHOLOGY Problem Qualifiers (1) Edema: Qualified Codes: R60.9 - Edema, unspecified (2) Proteinuria: Qualified Codes: R80.9 - Proteinuria, unspecified (3) Hypertension: Qualified Codes: I10 - Essential (primary) hypertension Pablo Sandoval DO Mar 29, 2017 09:29
[2017-03-29] MEDS ORDERED: LEVOTHYROXINE SODIUM 25 MCG TAB PO ONE (09:30)
[2017-03-29] MEDS: BUMETANIDE INJ 1 MG/4 ML VIAL IV PUSH SCH ×2 (09:58→18:01)
[2017-03-29] MEDS: amLODIPine BESYLATE 5 MG TAB PO SCH (09:58)
[2017-03-29] MEDS: DOCUSATE SODIUM 50 MG/SENNA 8.6 MG TAB PO SCH ×2 (09:58→22:24)
[2017-03-29] MEDS: SODIUM CHLORIDE 0.9% FLUSH 10 ML FLUSH IV FLUSH SCH ×2 (09:59→22:23)
[2017-03-29] MEDS: FAMOTIDINE 20 MG TAB PO SCH ×2 (09:59→22:24)
[2017-03-29] MEDS: ATORVASTATIN 80 MG TAB PO SCH (10:25)
[2017-03-29 12:00] VITALS: BP 127/58; PULSE 75; RESP 16; TEMP 97.6; O2SAT 96
[2017-03-29 13:38] LABS: ANA SCREEN NEG (NEG)
[2017-03-29] MEDS: CHLOROTHIAZIDE SOD 500 MG VIAL IV SCH (15:15)
--- NOTE | 2017-03-29 15:20 | HHI.NPPN ---
Subjective History of Present Illness The patient is a 27 yo male who presented to the ED today for evaluation of swelling, SOB, and flu-like symptoms. 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 Reports that prior to the last few weeks, he has been in excellent health. Started noting the aforementioned symptoms approximately 3 weeks ago that has worsening in the past few days. Denies diabetic hx, no NSAID use, not hypertensive, denies hx of syphilis, hepatitis, nor HIV infection. No known family history of renal issues. Admitting SCr 0.9 and eGFR of 94 Serum albumin at 1.0. UA showed >600mg/dL on random UA all raising concern for nephrotic syndrome. Interval History Patient still complaining of lower extremity edema. Review of Systems General Constitutional: Weight Change Cardiovascular Cardiac: Edema Gastrointestinal Gastrointestinal: Abdominal Pain Objective Data Data Vital Signs Date Time Temp Pulse Resp B/P (MAP) Pulse Ox O2 Delivery O2 Flow Rate FiO2 03/29/17 08:00 98.5 88 18 134/76 (95) 96 03/29/17 04:00 96.4 80 18 138/63 (88) 95 03/29/17 00:00 99.0 84 18 137/70 (92) 98 03/28/17 20:00 97.4 90 22 121/60 (80) 98 -: 03/29/17 0630 03/29/17 0630 Physical Exam General Appearance: Well Nourished, No Acute Distress, Comfortable Eyes Eye Exam: Sclera White Throat Throat Exam: Oral Mucosa [place] & Moist Pulmonary Resp Exam: Clear Bilaterally, Breath Sounds Equal, No Distress Cardiology CV Exam: Regular, Normal Sinus Rhythm, Good Perfusion Gastrointestinal/Abdomen GI Exam: Soft, Non-Tender Integumentary Skin Exam: Clear, Normal Turgor Extremeties Extremities Exam: Moderate Edema (involving upper and lower extremities.) Neurologic Neuro Exam: Alert, Awake, Oriented, Speech Clear, Moving All Extremities Assessment/Plan Discussed Condition With: Patient Problem List: (1) Proteinuria ICD Codes: R80.9 - Proteinuria, unspecified Plan: 24h urine protein quantification of 10,569mg. No preliminary report available as yet regarding results of kidney biopsy and may not be available to Saturday. Discussed with patient. In the interim still has significant lower extremity edema. We'll increase bumetanide to 2 mg IV every 12 with Diuril 500 mg daily. Renal functions stable Differential diagnosis includes membranous nephropathy, minimal change disease, lupus, FSGS, membranoproliferative disease, and IgA nephropathy. As discussed with the patient, we will like have to perform a kidney biopsy for definitive diagnosis for definitive treatment if possible. He was provided a handout describing procedure if indicated. Will follow with labs in the AM (2) Hypertension ICD Codes: I10 - Essential (primary) hypertension Plan: Improved with medication. Monitor (3) Edema ICD Codes: R60.9 - Edema, unspecified Plan: As above. Problem Qualifiers (1) Proteinuria: Qualified Codes: R80.9 - Proteinuria, unspecified (2) Hypertension: Qualified Codes: I10 - Essential (primary) hypertension (3) Edema: Qualified Codes: R60.9 - Edema, unspecified Terence Bell MD Mar 29, 2017 15:20
[2017-03-29 15:48] VITALS: BP 127/76; PULSE 84; RESP 18; TEMP 99.8; O2SAT 95
[2017-03-29 20:00] VITALS: BP 130/75; PULSE 94; PULSE 95; RESP 18; TEMP 98.4; O2SAT 96
[2017-03-29] MEDS: VALSARTAN 40 MG TAB PO SCH (22:24)
[2017-03-30] VITALS (7 sets, daily range): BP systolic 128–143; BP diastolic 64–82; PULSE 71–91; RESP 17–18; TEMP 97.9–98.8; O2SAT 96–99
[2017-03-30] MEDS: LEVOTHYROXINE SODIUM 25 MCG TAB PO SCH (06:16)
[2017-03-30 07:08] LABS: AUTOMATED NEUTROPHIL # 5.6 TH/MM3 (1.8-7.7); BASOPHIL % 0.4 % (0.0-2.0); EOSINOPHIL # 0.2 TH/MM3 (0-0.4); EOSINOPHIL % 1.8 % (0.0-4.0); HEMATOCRIT 38.1 % (39.0-51.0); HEMO FLAGS DIFF FINAL; LYMPH % 22.6 % (9.0-44.0); MEAN CELL VOLUME 73.3 FL (80.0-100.0); MEAN CORPUSCULAR HEMOGLOBIN 24.4 PG (27.0-34.0); MEAN CORPUSCULAR HGB CONC 33.3 % (32.0-36.0); MONO % 12.6 % (0.0-8.0); NEUT % 62.6 % (16.0-70.0); PLATELET COUNT 310 TH/MM3 (150-450); RED CELL DISTRIBUTION WIDTH 14.6 % (11.6-17.2); WHITE BLOOD COUNT 8.9 TH/MM3 (4.0-11.0)
[2017-03-30 07:14] LABS: ALT (GPT) 22 U/L (12-78); ANION GAP 9 MEQ/L (5-15); AST (GOT) 26 U/L (15-37); BICARBONATE 24.3 MEQ/L (21.0-32.0); BLOOD UREA NITROGEN 28 MG/DL (7-18); CHLORIDE 95 MEQ/L (98-107); GLOMERULAR FILTRATION RATE 107 ML/MIN (>89); MAGNESIUM 2.6 MG/DL (1.5-2.5); POTASSIUM 4.1 MEQ/L (3.5-5.1); SODIUM (NA) 128 MEQ/L (136-145)
[2017-03-30 07:16] LABS: ALKALINE PHOSPHATASE 62 U/L (45-117); TOTAL BILIRUBIN ADULT 0.1 MG/DL (0.2-1.0)
[2017-03-30] MEDS: SODIUM CHLORIDE 0.9% FLUSH 10 ML FLUSH IV FLUSH SCH ×2 (08:45→20:24)
[2017-03-30] MEDS: DOCUSATE SODIUM 50 MG/SENNA 8.6 MG TAB PO SCH ×2 (08:45→20:25)
[2017-03-30] MEDS: FAMOTIDINE 20 MG TAB PO SCH ×2 (08:45→20:25)
[2017-03-30] MEDS: VALSARTAN 40 MG TAB PO SCH ×2 (08:45→20:24)
[2017-03-30] MEDS: ATORVASTATIN 80 MG TAB PO SCH (08:45)
[2017-03-30] MEDS: amLODIPine BESYLATE 5 MG TAB PO SCH (08:45)
[2017-03-30] MEDS: CHLOROTHIAZIDE SOD 500 MG VIAL IV SCH (08:45)
[2017-03-30] MEDS: BUMETANIDE INJ 1 MG/4 ML VIAL IV PUSH SCH ×2 (08:58→17:28)
--- NOTE | 2017-03-30 12:48 | HHI.PR ---
Subjective Remarks 27-year-old male complains of edema bilateral lower extremities and a generalized swelling in the abdomen as well as some shortness of breath at times. He believes he's gained about 10 pounds in approximately 3 weeks. Last night he noticed ankle edema for the first time. Urination has been normal. Diet has been normal. No fever. No rash. No similar prior episodes. He denies past medical history of any significance. No new or different medication. Onset gradual. Timing constant. Elevated blood pressure here 03-28 had kidney biopsy of left kidney on 03-28 MEDICATIONS ADJUSTED TO BUMEX INSTEAD OF LASIX NOW HAS A DRY COUGH WILL SWITCH OFF GEORGE AND GO TO ARB DW RN AND PATIENT HX OF VIRAL SYNDROME PRIOR TO COMING TO THE HOSPITAL?? 03-30 no new complaints Still has a dry cough even though change the GEORGE inhibitor to ARB Patient states he normally gets a dry cough when it's cold in the room which he feels it is in the hospital patient states he chronically gets a cough when this happens Objective Vitals Vital Signs Date Time Temp Pulse Resp B/P (MAP) Pulse Ox O2 Delivery O2 Flow Rate FiO2 03/30/17 11:59 98.6 81 18 128/82 (97) 99 03/30/17 08:40 98.6 80 18 132/69 (90) 97 03/30/17 04:00 98.8 79 18 130/64 (86) 97 03/30/17 00:00 98.0 84 18 142/80 (100) 96 03/29/17 20:00 98.4 95 18 130/75 (93) 96 03/29/17 20:00 94 03/29/17 15:48 99.8 84 18 127/76 (93) 95 I/O 03/29/17 03/29/17 03/29/17 03/30/17 03/30/17 03/30/17 07:00 15:00 23:00 07:00 15:00 23:00 Intake Total 990 ml 620 ml 320 ml Balance 990 ml 620 ml 320 ml Intake Oral 990 ml 620 ml 320 ml # Voids 3 3 # Bowel Movements 0 0 Result Diagram: 03/30/17 0615 03/30/17 0615 Other Results Laboratory Tests Test 03/28/17 04:25 03/28/17 06:00 03/28/17 14:22 03/28/17 16:30 White Blood Count 8.9 TH/MM3 9.7 TH/MM3 8.2 TH/MM3 Red Blood Count 5.45 MIL/MM3 5.50 MIL/MM3 5.52 MIL/MM3 Hemoglobin 13.4 GM/DL 13.6 GM/DL 13.9 GM/DL Hematocrit 40.4 % 40.7 % 41.5 % Mean Corpuscular Volume 74.1 FL 74.1 FL 75.2 FL Mean Corpuscular Hemoglobin 24.5 PG 24.8 PG 25.1 PG Mean Corpuscular Hemoglobin Concent 33.1 % 33.5 % 33.4 % Red Cell Distribution Width 14.3 % 14.5 % 14.2 % Platelet Count 304 TH/MM3 285 TH/MM3 280 TH/MM3 Mean Platelet Volume 8.3 FL 8.0 FL 8.6 FL Neutrophils (%) (Auto) 62.0 % 77.3 % 72.6 % Lymphocytes (%) (Auto) 24.6 % 13.2 % 16.7 % Monocytes (%) (Auto) 11.2 % 8.4 % 9.7 % Eosinophils (%) (Auto) 1.8 % 0.8 % 0.8 % Basophils (%) (Auto) 0.4 % 0.3 % 0.2 % Neutrophils # (Auto) 5.5 TH/MM3 7.5 TH/MM3 6.0 TH/MM3 Lymphocytes # (Auto) 2.2 TH/MM3 1.3 TH/MM3 1.4 TH/MM3 Monocytes # (Auto) 1.0 TH/MM3 0.8 TH/MM3 0.8 TH/MM3 Eosinophils # (Auto) 0.2 TH/MM3 0.1 TH/MM3 0.1 TH/MM3 Basophils # (Auto) 0.0 TH/MM3 0.0 TH/MM3 0.0 TH/MM3 CBC Comment DIFF FINAL DIFF FINAL DIFF FINAL Differential Comment Blood Urea Nitrogen 22 MG/DL Creatinine 0.98 MG/DL Random Glucose 93 MG/DL Total Protein 4.6 GM/DL Albumin 0.8 GM/DL Calcium Level 7.5 MG/DL Phosphorus Level 3.9 MG/DL Magnesium Level 2.7 MG/DL Alkaline Phosphatase 61 U/L Aspartate Amino Transf (AST/SGOT) 24 U/L Alanine Aminotransferase (ALT/SGPT) 24 U/L Total Bilirubin 0.3 MG/DL Sodium Level 129 MEQ/L Potassium Level 4.2 MEQ/L Chloride Level 98 MEQ/L Carbon Dioxide Level 26.1 MEQ/L Anion Gap 5 MEQ/L Estimat Glomerular Filtration Rate 92 ML/MIN Hemoglobin A1c 5.1 % Free Thyroxine 0.75 NG/DL Thyroid Stimulating Hormone 3rd Gen 5.850 uIU/ML Urine Total Volume 24 Hours 1400 ML Urine Total Protein 24 Hour 04260 MG/24HR Test 03/29/17 06:30 03/30/17 06:15 White Blood Count 11.4 TH/MM3 8.9 TH/MM3 Red Blood Count 5.72 MIL/MM3 5.20 MIL/MM3 Hemoglobin 13.8 GM/DL 12.7 GM/DL Hematocrit 42.5 % 38.1 % Mean Corpuscular Volume 74.4 FL 73.3 FL Mean Corpuscular Hemoglobin 24.2 PG 24.4 PG Mean Corpuscular Hemoglobin Concent 32.5 % 33.3 % Red Cell Distribution Width 14.5 % 14.6 % Platelet Count 365 TH/MM3 310 TH/MM3 Mean Platelet Volume 8.3 FL 8.3 FL Blood Urea Nitrogen 25 MG/DL 28 MG/DL Creatinine 0.90 MG/DL 0.86 MG/DL Random Glucose 85 MG/DL 91 MG/DL Albumin 0.9 GM/DL 0.7 GM/DL Calcium Level 8.0 MG/DL 7.5 MG/DL Phosphorus Level 3.7 MG/DL 4.2 MG/DL Sodium Level 128 MEQ/L 128 MEQ/L Potassium Level 4.2 MEQ/L 4.1 MEQ/L Chloride Level 96 MEQ/L 95 MEQ/L Carbon Dioxide Level 24.6 MEQ/L 24.3 MEQ/L Anion Gap 7 MEQ/L 9 MEQ/L Estimat Glomerular Filtration Rate 102 ML/MIN 107 ML/MIN Neutrophils (%) (Auto) 62.6 % Lymphocytes (%) (Auto) 22.6 % Monocytes (%) (Auto) 12.6 % Eosinophils (%) (Auto) 1.8 % Basophils (%) (Auto) 0.4 % Neutrophils # (Auto) 5.6 TH/MM3 Lymphocytes # (Auto) 2.0 TH/MM3 Monocytes # (Auto) 1.1 TH/MM3 Eosinophils # (Auto) 0.2 TH/MM3 Basophils # (Auto) 0.0 TH/MM3 CBC Comment DIFF FINAL Differential Comment Total Protein 4.8 GM/DL Magnesium Level 2.6 MG/DL Alkaline Phosphatase 62 U/L Aspartate Amino Transf (AST/SGOT) 26 U/L Alanine Aminotransferase (ALT/SGPT) 22 U/L Total Bilirubin 0.1 MG/DL Imaging Last Impressions Renal Biopsy CT 03/28/17 0000 Signed Impressions: Service Date/Time: March 13:09 - CONCLUSION: Uncomplicated CT guided biopsy of the lower pole left kidney. Erickson Hughes MD Chest X-Ray 03/26/17 1536 Signed Impressions: Service Date/Time: Sunday, March 26, 2017 15:42 - CONCLUSION: 1. Mild basilar airspace disease with probable trace pleural fluid. Deepak Figueroa MD Renal Ultrasound 03/26/17 0000 Signed Impressions: Service Date/Time: Sunday, March 26, 2017 18:31 - CONCLUSION: 1. No evidence of hydronephrosis, mass or stone. 2. Unremarkable urinary bladder. 3. Bilateral pleural effusions. 4. Minimal ascites within the upper abdomen. Daryl Monahan MD Objective Remarks GENERAL: This is a well-nourished, well-developed patient, in no apparent distress. SKIN: No rashes, ecchymoses or lesions. Cool and dry. +2 bilateral lower extremity edema HEAD: Atraumatic. Normocephalic. No temporal or scalp tenderness. EYES: Pupils equal round and reactive. Extraocular motions intact. No scleral icterus. No injection or drainage. ENT: Nose without bleeding, purulent drainage or septal hematoma. Throat without erythema, tonsillar hypertrophy or exudate. Uvula midline. Airway patent. NECK: Trachea midline. No JVD or lymphadenopathy. Supple, nontender, no meningeal signs. CARDIOVASCULAR: Regular rate and rhythm without murmurs, gallops, or rubs. S1 and S2 no S3 or S4 RESPIRATORY: Clear to auscultation. Breath sounds equal bilaterally. No wheezes , rales, or rhonchi. GASTROINTESTINAL: Abdomen soft, non-tender, nondistended. No hepato-splenomegaly , or palpable masses. No guarding. MUSCULOSKELETAL: Extremities without clubbing, cyanosis, positive +2 bilateral lower extremity edema no joint tenderness, effusion, or edema noted. No calf tenderness. Negative Homans sign bilaterally. NEUROLOGICAL: Awake and alert. Cranial nerves II through XII intact. Motor and sensory grossly within normal limits. Five out of 5 muscle strength in all muscle groups. Normal speech. Insight and judgment is good Mood and behaviors appropriate Procedures KIDNEY BIOPSY OF LEFT POLE OF KIDNEY 9 Medications and IVs Current Medications Sodium Chloride (NS Flush) 2 ml UNSCH PRN IVF FLUSH AFTER USING IV ACCESS; Start 03/26/17 at 15:45; Stop 03/26/17 at 18:09; Status DC Furosemide (Lasix Inj) 20 mg ONCE ONCE IV PUSH Last administered on 03/26/17 17:02; Start 03/26/17 at 17:00; Stop 03/26/17 at 17:01; Status DC Clonidine (Catapres) 0.1 mg Q4H PRN PO SBP>160, DBP>90; Start 03/26/17 at 18:00 Lisinopril (Prinivil) 10 mg Q12HR PO Last administered on 03/28/17 22:05; Start 03/26/17 at 21:00; Stop 03/29/17 at 09:26; Status DC Amlodipine Besylate (Norvasc) 5 mg ONCE ONCE PO Last administered on 18:28; Start 03/26/17 at 18:00; Stop 03/26/17 at 18:10; Status DC Amlodipine Besylate (Norvasc) 5 mg DAILY PO Last administered on 03/30/17 08: 45; Start 03/27/17 at 09:00 Furosemide (Lasix Inj) 20 mg BID@,18 IV PUSH Last administered on 03/27/17 09:44; Start 03/26/17 at 18:00; Stop 03/27/17 at 17:16; Status DC Sodium Chloride (NS Flush) 2 ml UNSCH PRN IV FLUSH FLUSH AFTER USING IV ACCESS ; Start 03/26/17 at 18:00 Sodium Chloride (NS Flush) 2 ml BID IV FLUSH Last administered on 03/30/17 08: 45; Start 03/26/17 at 21:00 Acetaminophen (Tylenol) 650 mg Q4H PRN PO TEMP > 100.4; Start 03/26/17 at 18:00 Ondansetron HCl (Zofran Inj) 4 mg Q6H PRN IVP NAUSEA OR VOMITING; Start at 18:00 Prochlorperazine (Compazine Supp) 25 mg Q12H PRN RECTAL NAUSEA OR VOMITING; Start 03/26/17 at 18:00 Zolpidem Tartrate (Ambien) 5 mg HS PRN PO INSOMNIA; Start 03/26/17 at 18:00 Acetaminophen (Tylenol) 650 mg Q6H PRN PO PAIN SCALE 1 TO 2 Last administered on 03/27/17 05:08; Start 03/26/17 at 18:00 Oxycodone/ Acetaminophen (Percocet 5-325 Mg) 1 tab Q6H PRN PO PAIN SCALE 3 TO 5; Start 03/26/17 at 18:00 Oxycodone/ Acetaminophen (Percocet 10-325 Mg) 1 tab Q6H PRN PO PAIN SCALE 6 TO 10; Start 03/26/17 at 18:00 Morphine Sulfate (Morphine Inj) 2 mg Q3H PRN IV PUSH Pain 3-5; if unable to take PO; Start 03/26/17 at 18:00 Morphine Sulfate (Morphine Inj) 4 mg Q3H PRN IV PUSH Pain 6-10;if unable to take PO; Start 03/26/17 at 18:00 Naloxone HCl (Narcan Inj) 0.4 mg UNSCH PRN IV PUSH SEE LABEL COMMENTS; Start at 18:00 Senna/Docusate Sodium (Radha-Colace) 1 tab BID PO Last administered on 08:45; Start 03/26/17 at 21:00 Magnesium Hydroxide (Milk Of Magnesia Liq) 30 ml Q12H PRN PO MILD - MODERATE CONSTIPATION; Start 03/26/17 at 18:00 Sennosides (Senokot) 17.2 mg Q12H PRN PO MODERATE - SEVERE CONSTIPATION; Start 03/26/17 at 18:00 Bisacodyl (Dulcolax Supp) 10 mg DAILY PRN RECTAL SEVERE CONSITIPATION; Start at 18:00 Lactulose (Lactulose Liq) 30 ml DAILY PRN PO SEVERE CONSITIPATION; Start at 18:00 Famotidine (Pepcid) 20 mg BID PO Last administered on 03/30/17 08:45; Start at 21:00 Atorvastatin Calcium (Lipitor) 80 mg DAILY PO Last administered on 03/30/17 08 :45; Start 03/27/17 at 11:00 Furosemide (Lasix Inj) 40 mg BID@18 IV PUSH Last administered on 03/28/17 09:57; Start 03/27/17 at 18:00; Stop 03/28/17 at 17:33; Status DC Potassium Chloride (KCl) 20 meq ONCE ONCE PO Last administered on 03/27/17 18 :06; Start 03/27/17 at 18:00; Stop 03/27/17 at 18:01; Status DC Chlorothiazide Sodium (Diuril Inj) 500 mg ONCE ONCE IV ; Start 03/27/17 at 18: 30; Stop 03/27/17 at 18:31; Status DC Fentanyl Citrate (fentaNYL INJ) 200 mcg STK-MED ONCE .ROUTE Last administered on 03/28/17 13:05; Start 03/28/17 at 12:29; Stop 03/28/17 at 12:30; Status DC Midazolam HCl (Versed Inj) 5 mg STK-MED ONCE .ROUTE Last administered on 13:05; Start 03/28/17 at 12:30; Stop 03/28/17 at 12:31; Status DC Lidocaine HCl (Xylocaine 1% Inj) 20 ml STK-MED ONCE .ROUTE Last administered on 03/28/17 12:46; Start 03/28/17 at 12:46; Stop 03/28/17 at 12:47; Status DC Hydromorphone HCl (Dilaudid) 1 mg Q6H PRN PO Pain post renal biopsy; Start at 14:00; Stop 03/28/17 at 23:59; Status DC Bumetanide (Bumex Inj) 1 mg BID@18 IV PUSH Last administered on 03/29/17 09 :58; Start 03/28/17 at 18:00; Stop 03/29/17 at 15:18; Status DC Levothyroxine Sodium (Synthroid) 25 mcg DAILY@0600 PO Last administered on 03/30 06:16; Start 03/30/17 at 06:00 Levothyroxine Sodium (Synthroid) 25 mcg ONCE ONCE PO Last administered on 03/29 10:25; Start 03/29/17 at 09:30; Stop 03/29/17 at 09:38; Status DC Valsartan (Diovan) 40 mg BID PO Last administered on 03/30/17 08:45; Start at 21:00 Bumetanide (Bumex Inj) 2 mg BID@09,18 IV PUSH Last administered on 03/30/17 08 :58; Start 03/29/17 at 18:00 Chlorothiazide Sodium (Diuril Inj) 500 mg DAILY IV Last administered on 08:45; Start 03/29/17 at 15:15 Urinary Catheter: No Vascular Central Line Catheter: No A/P Problem List: (1) Nephrotic syndrome ICD Code: N04.9 - Nephrotic syndrome with unspecified morphologic changes (2) Edema ICD Code: R60.9 - Edema, unspecified (3) Proteinuria ICD Code: R80.9 - Proteinuria, unspecified (4) Hypoalbuminemia ICD Code: E88.09 - Other disorders of plasma-protein metabolism, not elsewhere classified (5) Hypertension ICD Code: I10 - Essential (primary) hypertension (6) Hyperlipidemia ICD Code: E78.5 - Hyperlipidemia, unspecified (7) Hypertriglyceridemia ICD Code: E78.1 - Pure hyperglyceridemia (8) Hypothyroidism ICD Code: E03.9 - Hypothyroidism, unspecified Assessment and Plan Nephrotic syndrome has proteinuria -has edema-has hypoalbuminemia-has lipid issues Fluid restrict consult nephrology Started on GEORGE inhibitor- HAVING COUGH SWITCH TO ARB--has chronic cough this may have nothing to do with ARB or GEORGE -states it is worse with cold air which he is having blown on him while he is here in the hospital Calcium channel kailyn Accurate I's and O's Daily weights A.m. labs 24 hour urine in the process of being done Ultrasounds of bilateral kidney have been done SCDs bilateral lower extremities Hypertension SWITCH TO ARB and calcium channel kailyn SWITCHED TO BUMEX When necessary Catapres Hyperlipidemia and hypertriglyceridemia started on high-dose Lipitor Check thyroid panel SHOWS HYPOTHYROIDISM START ON SYNTHROID 25MCG DAILY Fasting lipid panel HIGH CHOLESTEROL AND TRIGLYCERIDES DVT and GI prophylaxis Discussed with patient and RN CHANGE TO ARB ADD SYNTHROID Chronic cough from cold air conditioning Discharge Planning AWAIT PATHOLOGY Problem Qualifiers (1) Edema: Qualified Codes: R60.9 - Edema, unspecified (2) Proteinuria: Qualified Codes: R80.9 - Proteinuria, unspecified (3) Hypertension: Qualified Codes: I10 - Essential (primary) hypertension Pablo Sandoval DO Mar 30, 2017 12:48
--- NOTE | 2017-03-30 15:08 | HHI.NPPN ---
Subjective History of Present Illness The patient is a 27 yo male who presented to the ED today for evaluation of swelling, SOB, and flu-like symptoms. 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 Reports that prior to the last few weeks, he has been in excellent health. Started noting the aforementioned symptoms approximately 3 weeks ago that has worsening in the past few days. Denies diabetic hx, no NSAID use, not hypertensive, denies hx of syphilis, hepatitis, nor HIV infection. No known family history of renal issues. Admitting SCr 0.9 and eGFR of 94 Serum albumin at 1.0. UA showed >600mg/dL on random UA all raising concern for nephrotic syndrome. Interval History Pt reports feeling better with increase in diuretics. Still having cough despite changing ACEi to ARB. (Sara Jesus) Review of Systems General Constitutional: Weight Change (Sara Jesus) Respiratory Lungs: Cough (Sara Jesus) Cardiovascular Cardiac: Edema (Sara Jesus) Gastrointestinal Gastrointestinal: Abdominal Pain (Sara Jesus) Objective Data Data Vital Signs Date Time Temp Pulse Resp B/P (MAP) Pulse Ox O2 Delivery O2 Flow Rate FiO2 03/30/17 11:59 98.6 81 18 128/82 (97) 99 03/30/17 08:40 98.6 80 18 132/69 (90) 97 03/30/17 04:00 98.8 79 18 130/64 (86) 97 03/30/17 00:00 98.0 84 18 142/80 (100) 96 03/29/17 20:00 98.4 95 18 130/75 (93) 96 03/29/17 20:00 94 03/29/17 15:48 99.8 84 18 127/76 (93) 95 (Sara Jesus) -: 03/30/17 0615 03/30/17 0615 Imaging Last Impressions Renal Biopsy CT 03/28/17 0000 Signed Impressions: Service Date/Time: March 13:09 - CONCLUSION: Uncomplicated CT guided biopsy of the lower pole left kidney. Erickson Hughes MD Chest X-Ray 03/26/17 1536 Signed Impressions: Service Date/Time: Sunday, March 26, 2017 15:42 - CONCLUSION: 1. Mild basilar airspace disease with probable trace pleural fluid. Deepak Figueroa MD Renal Ultrasound 03/26/17 0000 Signed Impressions: Service Date/Time: Sunday, March 26, 2017 18:31 - CONCLUSION: 1. No evidence of hydronephrosis, mass or stone. 2. Unremarkable urinary bladder. 3. Bilateral pleural effusions. 4. Minimal ascites within the upper abdomen. Daryl Monahan MD Medication Review Current Medications Medications (Trade) Dose Ordered Sig/Puma Route Start Time Stop Time Status Last Admin (Catapres) 0.1 mg Q4H PRN PO 03/26/17 18:00 (Norvasc) 5 mg DAILY PO 03/27/17 09:00 03/30/17 08:45 (NS Flush) 2 ml UNSCH PRN IV FLUSH 03/26/17 18:00 (NS Flush) 2 ml BID IV FLUSH 03/26/17 21:00 03/30/17 08:45 (Tylenol) 650 mg Q4H PRN PO 03/26/17 18:00 (Zofran Inj) 4 mg Q6H PRN IVP 03/26/17 18:00 (Compazine Supp) 25 mg Q12H PRN RECTAL 03/26/17 18:00 (Ambien) 5 mg HS PRN PO 03/26/17 18:00 (Tylenol) 650 mg Q6H PRN PO 03/26/17 18:00 03/27/17 05:08 (Percocet 5-325 Mg) 1 tab Q6H PRN PO 03/26/17 18:00 (Percocet 10-325 Mg) 1 tab Q6H PRN PO 03/26/17 18:00 (Morphine Inj) 2 mg Q3H PRN IV PUSH 03/26/17 18:00 (Morphine Inj) 4 mg Q3H PRN IV PUSH 03/26/17 18:00 (Narcan Inj) 0.4 mg UNSCH PRN IV PUSH 03/26/17 18:00 (Radha-Colace) 1 tab BID PO 03/26/17 21:00 03/30/17 08:45 (Milk Of Magnesia Liq) 30 ml Q12H PRN PO 03/26/17 18:00 (Senokot) 17.2 mg Q12H PRN PO 03/26/17 18:00 (Dulcolax Supp) 10 mg DAILY PRN RECTAL 03/26/17 18:00 (Lactulose Liq) 30 ml DAILY PRN PO 03/26/17 18:00 (Pepcid) 20 mg BID PO 03/26/17 21:00 03/30/17 08:45 (Lipitor) 80 mg DAILY PO 03/27/17 11:00 03/30/17 08:45 (Synthroid) 25 mcg DAILY@0600 PO 03/30/17 06:00 03/30/17 06:16 (Diovan) 40 mg BID PO 03/29/17 21:00 03/30/17 08:45 (Bumex Inj) 2 mg BID@09,18 IV PUSH 03/29/17 18:00 03/30/17 08:58 (Diuril Inj) 500 mg DAILY IV 03/29/17 15:15 03/30/17 08:45 (Sara Jesus) Physical Exam General Appearance: Well Nourished, No Acute Distress, Comfortable (Sara Jesus) Eyes Eye Exam: Sclera White (Sara Jesus) Throat Throat Exam: Oral Mucosa Spur & Moist (Sara Jesus) Pulmonary Resp Exam: Clear Bilaterally, Breath Sounds Equal, No Distress (Sara Jesus) Cardiology CV Exam: Regular, Normal Sinus Rhythm, Good Perfusion (Sara Jesus) Gastrointestinal/Abdomen GI Exam: Soft, Non-Tender (Sara Jesus) Integumentary Skin Exam: Clear, Normal Turgor (Sara Jesus) Extremeties Extremities Exam: Moderate Edema (involving upper and lower extremities.) (Sara Jesus) Neurologic Neuro Exam: Alert, Awake, Oriented, Speech Clear, Moving All Extremities (Sara Jesus) Assessment/Plan Discussed Condition With: Patient Problem List: (1) Proteinuria ICD Codes: R80.9 - Proteinuria, unspecified Plan: 24h urine protein quantification of 10,569mg. No preliminary report available as yet regarding results of kidney biopsy and may not be available to Saturday. Discussed with patient. Continue on Bumex 2mg IV q12h with Diuril 500mg IV QD Renal functions stable Differential diagnosis includes membranous nephropathy, minimal change disease, lupus, FSGS, membranoproliferative disease, and IgA nephropathy. (2) Hypertension ICD Codes: I10 - Essential (primary) hypertension Plan: Improved with medication. Monitor (3) Edema ICD Codes: R60.9 - Edema, unspecified Plan: As above. (Sara Jesus) Plan Renal biopsy is still pending and hopefully will be available by tomorrow. Continue diuretics as ordered. It is noted that the patient originates from [facility] currently going to [employer] school here. Schistosomiasis is endemic to that region and can be associated with glomerular disease including nephrotic syndrome. Most common glomerulopathy is mesangial proliferative glomerulonephritis. Since the patient's therapy may include prednisone I would like an infectious disease opinion regarding whether or not this patient needs to be screened for same as prednisone may worsen any parasitic infection and would not be the treatment of choice if the patient's nephrotic syndrome is related to schistosomiasis. On biopsy is available I may discuss with them whether not specific antigen tests are required on the biopsy specimen for that particular parasite. This was discussed with the patient. As far as the abnormalities noted that the patient's thyroid function tests are concerned according to the literature I reviewed even the free T4 could be influenced by severe reductions in certain protein levels in this patient does have severe nephrotic range proteinuria. 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 I will defer this decision however the primary care physician however. The exam, history, and the medical decision-making described in the above note were completed with the assistance of the SHANE. I reviewed and agree with the findings presented. I attest that I had a [id number] encounter with the patient on the same day, and personally performed and documented my assessment and findings in the medical record. (Terence Bell MD) Problem Qualifiers (1) Proteinuria: Qualified Codes: R80.9 - Proteinuria, unspecified (2) Hypertension: Qualified Codes: I10 - Essential (primary) hypertension (3) Edema: Qualified Codes: R60.9 - Edema, unspecified Sara Jesus Mar 30, 2017 15:08 Terence Bell MD Mar 31, 2017 18:04
[2017-03-30] MEDS: BENZONATATE 100 MG CAP PO PRN ×2 (17:36→23:28)
[2017-03-31] VITALS (7 sets, daily range): BP systolic 116–136; BP diastolic 55–79; PULSE 74–94; RESP 17–20; TEMP 96.2–97.8; O2SAT 94–97
[2017-03-31] MEDS: LEVOTHYROXINE SODIUM 25 MCG TAB PO SCH (06:05)
[2017-03-31 07:04] LABS: AUTOMATED NEUTROPHIL # 5.9 TH/MM3 (1.8-7.7); BASOPHIL % 0.4 % (0.0-2.0); EOSINOPHIL # 0.2 TH/MM3 (0-0.4); EOSINOPHIL % 2.5 % (0.0-4.0); HEMATOCRIT 37.3 % (39.0-51.0); HEMO FLAGS DIFF FINAL; LYMPH % 18.3 % (9.0-44.0); LYMPHOCYTE # 1.7 TH/MM3 (1.0-4.8); MEAN CELL VOLUME 73.3 FL (80.0-100.0); MEAN CORPUSCULAR HEMOGLOBIN 24.7 PG (27.0-34.0); MEAN CORPUSCULAR HGB CONC 33.7 % (32.0-36.0); MONO % 13.9 % (0.0-8.0); NEUT % 64.9 % (16.0-70.0); PLATELET COUNT 312 TH/MM3 (150-450); RED BLOOD COUNT 5.08 MIL/MM3 (4.50-5.90); RED CELL DISTRIBUTION WIDTH 13.9 % (11.6-17.2); WHITE BLOOD COUNT 9.1 TH/MM3 (4.0-11.0)
[2017-03-31 07:12] LABS: ALT (GPT) 16 U/L (12-78); ANION GAP 8 MEQ/L (5-15); AST (GOT) 22 U/L (15-37); BICARBONATE 27.3 MEQ/L (21.0-32.0); BLOOD UREA NITROGEN 31 MG/DL (7-18); CHLORIDE 90 MEQ/L (98-107); GLOMERULAR FILTRATION RATE 79 ML/MIN (>89); MAGNESIUM 2.6 MG/DL (1.5-2.5); POTASSIUM 3.6 MEQ/L (3.5-5.1); SODIUM (NA) 125 MEQ/L (136-145)
[2017-03-31 07:14] LABS: ALKALINE PHOSPHATASE 65 U/L (45-117); TOTAL BILIRUBIN ADULT 0.2 MG/DL (0.2-1.0)
[2017-03-31] MEDS: amLODIPine BESYLATE 5 MG TAB PO SCH (08:27)
[2017-03-31] MEDS: CHLOROTHIAZIDE SOD 500 MG VIAL IV SCH (08:28)
[2017-03-31] MEDS: ATORVASTATIN 80 MG TAB PO SCH (08:28)
[2017-03-31] MEDS: SODIUM CHLORIDE 0.9% FLUSH 10 ML FLUSH IV FLUSH SCH ×2 (08:28→19:59)
[2017-03-31] MEDS: BENZONATATE 100 MG CAP PO PRN ×2 (08:28→19:59)
[2017-03-31] MEDS: BUMETANIDE INJ 1 MG/4 ML VIAL IV PUSH SCH ×2 (08:28→17:15)
[2017-03-31] MEDS: FAMOTIDINE 20 MG TAB PO SCH ×2 (08:28→19:59)
[2017-03-31] MEDS: DOCUSATE SODIUM 50 MG/SENNA 8.6 MG TAB PO SCH ×2 (08:29→20:00)
[2017-03-31] MEDS: VALSARTAN 40 MG TAB PO SCH ×2 (08:29→20:00)
--- NOTE | 2017-03-31 11:43 | HHI.PR ---
Subjective Remarks 27-year-old male complains of edema bilateral lower extremities and a generalized swelling in the abdomen as well as some shortness of breath at times. He believes he's gained about 10 pounds in approximately 3 weeks. Last night he noticed ankle edema for the first time. Urination has been normal. Diet has been normal. No fever. No rash. No similar prior episodes. He denies past medical history of any significance. No new or different medication. Onset gradual. Timing constant. Elevated blood pressure here 03-28 had kidney biopsy of left kidney on 03-28 MEDICATIONS ADJUSTED TO BUMEX INSTEAD OF LASIX NOW HAS A DRY COUGH WILL SWITCH OFF GEORGE AND GO TO ARB DW RN AND PATIENT HX OF VIRAL SYNDROME PRIOR TO COMING TO THE HOSPITAL?? 03-30 no new complaints Still has a dry cough even though change the GEORGE inhibitor to ARB Patient states he normally gets a dry cough when it's cold in the room which he feels it is in the hospital patient states he chronically gets a cough when this happens 03-31 AWAIT PATHOLOGY STILL HAS DRY COUGH LESS SWELLING IN LEGS SYLVESTER RN AND PT AM LABS Objective Vitals Vital Signs Date Time Temp Pulse Resp B/P (MAP) Pulse Ox O2 Delivery O2 Flow Rate FiO2 03/31/17 08:41 96.2 78 19 119/57 (77) 94 03/31/17 04:00 97.7 75 17 116/55 (75) 97 03/31/17 00:00 97.2 86 17 121/78 (92) 96 03/30/17 20:28 89 03/30/17 20:00 97.9 91 17 137/80 (99) 96 03/30/17 15:44 98.5 71 18 143/73 (96) 97 03/30/17 11:59 98.6 81 18 128/82 (97) 99 I/O 03/30/17 03/30/17 03/30/17 03/31/17 03/31/17 03/31/17 07:00 15:00 23:00 07:00 15:00 23:00 Intake Total 320 ml 240 ml Balance 320 ml 240 ml Intake Oral 320 ml 240 ml # Voids 3 2 # Bowel Movements 0 Result Diagram: 03/31/17 0537 03/31/17 0537 Other Results Laboratory Tests Test 03/28/17 14:22 03/28/17 16:30 03/29/17 06:30 03/30/17 06:15 White Blood Count 9.7 TH/MM3 8.2 TH/MM3 11.4 TH/MM3 8.9 TH/MM3 Red Blood Count 5.50 MIL/MM3 5.52 MIL/MM3 5.72 MIL/MM3 5.20 MIL/MM3 Hemoglobin 13.6 GM/DL 13.9 GM/DL 13.8 GM/DL 12.7 GM/DL Hematocrit 40.7 % 41.5 % 42.5 % 38.1 % Mean Corpuscular Volume 74.1 FL 75.2 FL 74.4 FL 73.3 FL Mean Corpuscular Hemoglobin 24.8 PG 25.1 PG 24.2 PG 24.4 PG Mean Corpuscular Hemoglobin Concent 33.5 % 33.4 % 32.5 % 33.3 % Red Cell Distribution Width 14.5 % 14.2 % 14.5 % 14.6 % Platelet Count 285 TH/MM3 280 TH/MM3 365 TH/MM3 310 TH/MM3 Mean Platelet Volume 8.0 FL 8.6 FL 8.3 FL 8.3 FL Neutrophils (%) (Auto) 77.3 % 72.6 % 62.6 % Lymphocytes (%) (Auto) 13.2 % 16.7 % 22.6 % Monocytes (%) (Auto) 8.4 % 9.7 % 12.6 % Eosinophils (%) (Auto) 0.8 % 0.8 % 1.8 % Basophils (%) (Auto) 0.3 % 0.2 % 0.4 % Neutrophils # (Auto) 7.5 TH/MM3 6.0 TH/MM3 5.6 TH/MM3 Lymphocytes # (Auto) 1.3 TH/MM3 1.4 TH/MM3 2.0 TH/MM3 Monocytes # (Auto) 0.8 TH/MM3 0.8 TH/MM3 1.1 TH/MM3 Eosinophils # (Auto) 0.1 TH/MM3 0.1 TH/MM3 0.2 TH/MM3 Basophils # (Auto) 0.0 TH/MM3 0.0 TH/MM3 0.0 TH/MM3 CBC Comment DIFF FINAL DIFF FINAL DIFF FINAL Differential Comment Blood Urea Nitrogen 25 MG/DL 28 MG/DL Creatinine 0.90 MG/DL 0.86 MG/DL Random Glucose 85 MG/DL 91 MG/DL Albumin 0.9 GM/DL 0.7 GM/DL Calcium Level 8.0 MG/DL 7.5 MG/DL Phosphorus Level 3.7 MG/DL 4.2 MG/DL Sodium Level 128 MEQ/L 128 MEQ/L Potassium Level 4.2 MEQ/L 4.1 MEQ/L Chloride Level 96 MEQ/L 95 MEQ/L Carbon Dioxide Level 24.6 MEQ/L 24.3 MEQ/L Anion Gap 7 MEQ/L 9 MEQ/L Estimat Glomerular Filtration Rate 102 ML/MIN 107 ML/MIN Total Protein 4.8 GM/DL Magnesium Level 2.6 MG/DL Alkaline Phosphatase 62 U/L Aspartate Amino Transf (AST/SGOT) 26 U/L Alanine Aminotransferase (ALT/SGPT) 22 U/L Total Bilirubin 0.1 MG/DL Test 03/31/17 05:37 White Blood Count 9.1 TH/MM3 Red Blood Count 5.08 MIL/MM3 Hemoglobin 12.6 GM/DL Hematocrit 37.3 % Mean Corpuscular Volume 73.3 FL Mean Corpuscular Hemoglobin 24.7 PG Mean Corpuscular Hemoglobin Concent 33.7 % Red Cell Distribution Width 13.9 % Platelet Count 312 TH/MM3 Mean Platelet Volume 8.5 FL Neutrophils (%) (Auto) 64.9 % Lymphocytes (%) (Auto) 18.3 % Monocytes (%) (Auto) 13.9 % Eosinophils (%) (Auto) 2.5 % Basophils (%) (Auto) 0.4 % Neutrophils # (Auto) 5.9 TH/MM3 Lymphocytes # (Auto) 1.7 TH/MM3 Monocytes # (Auto) 1.3 TH/MM3 Eosinophils # (Auto) 0.2 TH/MM3 Basophils # (Auto) 0.0 TH/MM3 CBC Comment DIFF FINAL Differential Comment Blood Urea Nitrogen 31 MG/DL Creatinine 1.12 MG/DL Random Glucose 93 MG/DL Total Protein 4.8 GM/DL Albumin 0.7 GM/DL Calcium Level 7.6 MG/DL Phosphorus Level 4.4 MG/DL Magnesium Level 2.6 MG/DL Alkaline Phosphatase 65 U/L Aspartate Amino Transf (AST/SGOT) 22 U/L Alanine Aminotransferase (ALT/SGPT) 16 U/L Total Bilirubin 0.2 MG/DL Sodium Level 125 MEQ/L Potassium Level 3.6 MEQ/L Chloride Level 90 MEQ/L Carbon Dioxide Level 27.3 MEQ/L Anion Gap 8 MEQ/L Estimat Glomerular Filtration Rate 79 ML/MIN Imaging Last Impressions Renal Biopsy CT 03/28/17 0000 Signed Impressions: Service Date/Time: March 13:09 - CONCLUSION: Uncomplicated CT guided biopsy of the lower pole left kidney. Erickson Hughes MD Chest X-Ray 03/26/17 1536 Signed Impressions: Service Date/Time: Sunday, March 26, 2017 15:42 - CONCLUSION: 1. Mild basilar airspace disease with probable trace pleural fluid. Deepak Figueroa MD Renal Ultrasound 03/26/17 0000 Signed Impressions: Service Date/Time: Sunday, March 26, 2017 18:31 - CONCLUSION: 1. No evidence of hydronephrosis, mass or stone. 2. Unremarkable urinary bladder. 3. Bilateral pleural effusions. 4. Minimal ascites within the upper abdomen. Daryl Monahan MD Objective Remarks GENERAL: This is a well-nourished, well-developed patient, in no apparent distress. SKIN: No rashes, ecchymoses or lesions. Cool and dry. +2 bilateral lower extremity edema HEAD: Atraumatic. Normocephalic. No temporal or scalp tenderness. EYES: Pupils equal round and reactive. Extraocular motions intact. No scleral icterus. No injection or drainage. ENT: Nose without bleeding, purulent drainage or septal hematoma. Throat without erythema, tonsillar hypertrophy or exudate. Uvula midline. Airway patent. NECK: Trachea midline. No JVD or lymphadenopathy. Supple, nontender, no meningeal signs. CARDIOVASCULAR: Regular rate and rhythm without murmurs, gallops, or rubs. S1 and S2 no S3 or S4 RESPIRATORY: Clear to auscultation. Breath sounds equal bilaterally. No wheezes , rales, or rhonchi. GASTROINTESTINAL: Abdomen soft, non-tender, nondistended. No hepato-splenomegaly , or palpable masses. No guarding. MUSCULOSKELETAL: Extremities without clubbing, cyanosis, positive +2 bilateral lower extremity edema no joint tenderness, effusion, or edema noted. No calf tenderness. Negative Homans sign bilaterally. NEUROLOGICAL: Awake and alert. Cranial nerves II through XII intact. Motor and sensory grossly within normal limits. Five out of 5 muscle strength in all muscle groups. Normal speech. Insight and judgment is good Mood and behaviors appropriate Procedures KIDNEY BIOPSY OF LEFT POLE OF KIDNEY 03-28 Medications and IVs Current Medications Sodium Chloride (NS Flush) 2 ml UNSCH PRN IVF FLUSH AFTER USING IV ACCESS; Start 03/26/17 at 15:45; Stop 03/26/17 at 18:09; Status DC Furosemide (Lasix Inj) 20 mg ONCE ONCE IV PUSH Last administered on 03/26/17 17:02; Start 03/26/17 at 17:00; Stop 03/26/17 at 17:01; Status DC Clonidine (Catapres) 0.1 mg Q4H PRN PO SBP>160, DBP>90; Start 03/26/17 at 18:00 Lisinopril (Prinivil) 10 mg Q12HR PO Last administered on 03/28/17 22:05; Start 03/26/17 at 21:00; Stop 03/29/17 at 09:26; Status DC Amlodipine Besylate (Norvasc) 5 mg ONCE ONCE PO Last administered on 18:28; Start 03/26/17 at 18:00; Stop 03/26/17 at 18:10; Status DC Amlodipine Besylate (Norvasc) 5 mg DAILY PO Last administered on 03/31/17 08: 27; Start 03/27/17 at 09:00 Furosemide (Lasix Inj) 20 mg BID@09,18 IV PUSH Last administered on 03/27/17 09:44; Start 03/26/17 at 18:00; Stop 03/27/17 at 17:16; Status DC Sodium Chloride (NS Flush) 2 ml UNSCH PRN IV FLUSH FLUSH AFTER USING IV ACCESS ; Start 03/26/17 at 18:00 Sodium Chloride (NS Flush) 2 ml BID IV FLUSH Last administered on 03/31/17 08: 28; Start 03/26/17 at 21:00 Acetaminophen (Tylenol) 650 mg Q4H PRN PO TEMP > 100.4; Start 03/26/17 at 18:00 Ondansetron HCl (Zofran Inj) 4 mg Q6H PRN IVP NAUSEA OR VOMITING; Start at 18:00 Prochlorperazine (Compazine Supp) 25 mg Q12H PRN RECTAL NAUSEA OR VOMITING; Start 03/26/17 at 18:00 Zolpidem Tartrate (Ambien) 5 mg HS PRN PO INSOMNIA; Start 03/26/17 at 18:00 Acetaminophen (Tylenol) 650 mg Q6H PRN PO PAIN SCALE 1 TO 2 Last administered on 03/27/17 05:08; Start 03/26/17 at 18:00 Oxycodone/ Acetaminophen (Percocet 5-325 Mg) 1 tab Q6H PRN PO PAIN SCALE 3 TO 5; Start 03/26/17 at 18:00 Oxycodone/ Acetaminophen (Percocet 10-325 Mg) 1 tab Q6H PRN PO PAIN SCALE 6 TO 10; Start 03/26/17 at 18:00 Morphine Sulfate (Morphine Inj) 2 mg Q3H PRN IV PUSH Pain 3-5; if unable to take PO; Start 03/26/17 at 18:00 Morphine Sulfate (Morphine Inj) 4 mg Q3H PRN IV PUSH Pain 6-10;if unable to take PO; Start 03/26/17 at 18:00 Naloxone HCl (Narcan Inj) 0.4 mg UNSCH PRN IV PUSH SEE LABEL COMMENTS; Start at 18:00 Senna/Docusate Sodium (Radha-Colace) 1 tab BID PO Last administered on 08:45; Start 03/26/17 at 21:00 Magnesium Hydroxide (Milk Of Magnesia Liq) 30 ml Q12H PRN PO MILD - MODERATE CONSTIPATION; Start 03/26/17 at 18:00 Sennosides (Senokot) 17.2 mg Q12H PRN PO MODERATE - SEVERE CONSTIPATION; Start 03/26/17 at 18:00 Bisacodyl (Dulcolax Supp) 10 mg DAILY PRN RECTAL SEVERE CONSITIPATION; Start at 18:00 Lactulose (Lactulose Liq) 30 ml DAILY PRN PO SEVERE CONSITIPATION; Start at 18:00 Famotidine (Pepcid) 20 mg BID PO Last administered on 03/31/17 08:28; Start at 21:00 Atorvastatin Calcium (Lipitor) 80 mg DAILY PO Last administered on 03/31/17 08 :28; Start 03/27/17 at 11:00 Furosemide (Lasix Inj) 40 mg BID@09,18 IV PUSH Last administered on 03/28/17 09:57; Start 03/27/17 at 18:00; Stop 03/28/17 at 17:33; Status DC Potassium Chloride (KCl) 20 meq ONCE ONCE PO Last administered on 03/27/17 18 :06; Start 03/27/17 at 18:00; Stop 03/27/17 at 18:01; Status DC Chlorothiazide Sodium (Diuril Inj) 500 mg ONCE ONCE IV ; Start 03/27/17 at 18: 30; Stop 03/27/17 at 18:31; Status DC Fentanyl Citrate (fentaNYL INJ) 200 mcg STK-MED ONCE .ROUTE Last administered on 03/28/17 13:05; Start 03/28/17 at 12:29; Stop 03/28/17 at 12:30; Status DC Midazolam HCl (Versed Inj) 5 mg STK-MED ONCE .ROUTE Last administered on 13:05; Start 03/28/17 at 12:30; Stop 03/28/17 at 12:31; Status DC Lidocaine HCl (Xylocaine 1% Inj) 20 ml STK-MED ONCE .ROUTE Last administered on 03/28/17 12:46; Start 03/28/17 at 12:46; Stop 03/28/17 at 12:47; Status DC Hydromorphone HCl (Dilaudid) 1 mg Q6H PRN PO Pain post renal biopsy; Start at 14:00; Stop 03/28/17 at 23:59; Status DC Bumetanide (Bumex Inj) 1 mg BID@18 IV PUSH Last administered on 03/29/17 09 :58; Start 03/28/17 at 18:00; Stop 03/29/17 at 15:18; Status DC Levothyroxine Sodium (Synthroid) 25 mcg DAILY@0600 PO Last administered on 03/31 06:05; Start 03/30/17 at 06:00 Levothyroxine Sodium (Synthroid) 25 mcg ONCE ONCE PO Last administered on 03/29 10:25; Start 03/29/17 at 09:30; Stop 03/29/17 at 09:38; Status DC Valsartan (Diovan) 40 mg BID PO Last administered on 03/30/17 20:24; Start at 21:00 Bumetanide (Bumex Inj) 2 mg BID@09,18 IV PUSH Last administered on 03/31/17 08 :28; Start 03/29/17 at 18:00 Chlorothiazide Sodium (Diuril Inj) 500 mg DAILY IV Last administered on 08:28; Start 03/29/17 at 15:15 Benzonatate (Tessalon) 100 mg TID PRN PO cough Last administered on 03/31/17 08:28; Start 03/30/17 at 15:15 Urinary Catheter: No Vascular Central Line Catheter: No A/P Problem List: (1) Nephrotic syndrome ICD Code: N04.9 - Nephrotic syndrome with unspecified morphologic changes (2) Edema ICD Code: R60.9 - Edema, unspecified (3) Proteinuria ICD Code: R80.9 - Proteinuria, unspecified (4) Hypoalbuminemia ICD Code: E88.09 - Other disorders of plasma-protein metabolism, not elsewhere classified (5) Hypertension ICD Code: I10 - Essential (primary) hypertension (6) Hyperlipidemia ICD Code: E78.5 - Hyperlipidemia, unspecified (7) Hypertriglyceridemia ICD Code: E78.1 - Pure hyperglyceridemia (8) Hypothyroidism ICD Code: E03.9 - Hypothyroidism, unspecified Assessment and Plan Nephrotic syndrome has proteinuria -has edema-has hypoalbuminemia-has lipid issues Fluid restrict consult nephrology Started on GEORGE inhibitor- HAVING COUGH SWITCH TO ARB--has chronic cough this may have nothing to do with ARB or GEORGE -states it is worse with cold air which he is having blown on him while he is here in the hospital Calcium channel kailyn Accurate I's and O's Daily weights A.m. labs 24 hour urine in the process of being done Ultrasounds of bilateral kidney have been done SCDs bilateral lower extremities Hypertension SWITCH TO ARB and calcium channel kailyn SWITCHED TO BUMEX When necessary Catapres Hyperlipidemia and hypertriglyceridemia started on high-dose Lipitor Check thyroid panel SHOWS HYPOTHYROIDISM START ON SYNTHROID 25MCG DAILY Fasting lipid panel HIGH CHOLESTEROL AND TRIGLYCERIDES DVT and GI prophylaxis Discussed with patient and RN CHANGE TO ARB ADD SYNTHROID RENAL INSUFFICIENCY- AM LABS Chronic cough from cold air conditioning Discharge Planning AWAIT PATHOLOGY Problem Qualifiers (1) Edema: Qualified Codes: R60.9 - Edema, unspecified (2) Proteinuria: Qualified Codes: R80.9 - Proteinuria, unspecified (3) Hypertension: Qualified Codes: I10 - Essential (primary) hypertension Pablo Sandoval DO Mar 31, 2017 11:43
[2017-04-01] VITALS: BP 130/69; PULSE 78; RESP 17; TEMP 97.3; O2SAT 96
[2017-04-01 04:00] VITALS: BP 124/60; PULSE 83; RESP 17; TEMP 98.8; O2SAT 96
[2017-04-01 05:29] LABS: BICARBONATE 27.7 MEQ/L (21.0-32.0); POTASSIUM 3.7 MEQ/L (3.5-5.1)
[2017-04-01] MEDS: LEVOTHYROXINE SODIUM 25 MCG TAB PO SCH (06:18)
[2017-04-01 08:00] VITALS: BP 121/58; PULSE 72; RESP 20; TEMP 97.7; O2SAT 97
--- NOTE | 2017-04-01 09:04 | HHI.PR ---
Subjective Remarks 27-year-old male complains of edema bilateral lower extremities and a generalized swelling in the abdomen as well as some shortness of breath at times. He believes he's gained about 10 pounds in approximately 3 weeks. Last night he noticed ankle edema for the first time. Urination has been normal. Diet has been normal. No fever. No rash. No similar prior episodes. He denies past medical history of any significance. No new or different medication. Onset gradual. Timing constant. Elevated blood pressure here 03-28 had kidney biopsy of left kidney on 03-28 MEDICATIONS ADJUSTED TO BUMEX INSTEAD OF LASIX NOW HAS A DRY COUGH WILL SWITCH OFF GEORGE AND GO TO ARB DW RN AND PATIENT HX OF VIRAL SYNDROME PRIOR TO COMING TO THE HOSPITAL?? 03-30 no new complaints Still has a dry cough even though change the GEORGE inhibitor to ARB Patient states he normally gets a dry cough when it's cold in the room which he feels it is in the hospital patient states he chronically gets a cough when this happens 03-31 AWAIT PATHOLOGY STILL HAS DRY COUGH LESS SWELLING IN LEGS DW RN AND PT AM LABS 04-01 still AWAITING PATHOLOGY DW RN AND PT NO NEW COMPLAINTS Objective Vitals Vital Signs Date Time Temp Pulse Resp B/P (MAP) Pulse Ox O2 Delivery O2 Flow Rate FiO2 04/01/17 04:00 98.8 83 17 124/60 (81) 96 04/01/17 00:00 97.3 78 17 130/69 (89) 96 03/31/17 20:03 94 03/31/17 20:00 97.5 89 17 136/79 (98) 96 03/31/17 16:45 97.8 83 20 135/70 (91) 95 03/31/17 12:46 96.5 74 20 121/61 (81) 96 I/O 03/31/17 03/31/17 03/31/17 04/01/17 04/01/17 04/01/17 07:00 15:00 23:00 07:00 15:00 23:00 Intake Total 240 ml 340 ml 240 ml Balance 240 ml 340 ml 240 ml Intake Oral 240 ml 340 ml 240 ml # Voids 2 3 3 # Bowel Movements 0 Result Diagram: 03/31/17 0537 04/01/17 0435 Other Results Laboratory Tests Test 03/30/17 06:15 03/31/17 05:37 04/01/17 04:35 White Blood Count 8.9 TH/MM3 9.1 TH/MM3 Red Blood Count 5.20 MIL/MM3 5.08 MIL/MM3 Hemoglobin 12.7 GM/DL 12.6 GM/DL Hematocrit 38.1 % 37.3 % Mean Corpuscular Volume 73.3 FL 73.3 FL Mean Corpuscular Hemoglobin 24.4 PG 24.7 PG Mean Corpuscular Hemoglobin Concent 33.3 % 33.7 % Red Cell Distribution Width 14.6 % 13.9 % Platelet Count 310 TH/MM3 312 TH/MM3 Mean Platelet Volume 8.3 FL 8.5 FL Neutrophils (%) (Auto) 62.6 % 64.9 % Lymphocytes (%) (Auto) 22.6 % 18.3 % Monocytes (%) (Auto) 12.6 % 13.9 % Eosinophils (%) (Auto) 1.8 % 2.5 % Basophils (%) (Auto) 0.4 % 0.4 % Neutrophils # (Auto) 5.6 TH/MM3 5.9 TH/MM3 Lymphocytes # (Auto) 2.0 TH/MM3 1.7 TH/MM3 Monocytes # (Auto) 1.1 TH/MM3 1.3 TH/MM3 Eosinophils # (Auto) 0.2 TH/MM3 0.2 TH/MM3 Basophils # (Auto) 0.0 TH/MM3 0.0 TH/MM3 CBC Comment DIFF FINAL DIFF FINAL Differential Comment Blood Urea Nitrogen 28 MG/DL 31 MG/DL 39 MG/DL Creatinine 0.86 MG/DL 1.12 MG/DL 1.17 MG/DL Random Glucose 91 MG/DL 93 MG/DL 88 MG/DL Total Protein 4.8 GM/DL 4.8 GM/DL Albumin 0.7 GM/DL 0.7 GM/DL 0.8 GM/DL Calcium Level 7.5 MG/DL 7.6 MG/DL 7.8 MG/DL Phosphorus Level 4.2 MG/DL 4.4 MG/DL 3.9 MG/DL Magnesium Level 2.6 MG/DL 2.6 MG/DL Alkaline Phosphatase 62 U/L 65 U/L Aspartate Amino Transf (AST/SGOT) 26 U/L 22 U/L Alanine Aminotransferase (ALT/SGPT) 22 U/L 16 U/L Total Bilirubin 0.1 MG/DL 0.2 MG/DL Sodium Level 128 MEQ/L 125 MEQ/L 129 MEQ/L Potassium Level 4.1 MEQ/L 3.6 MEQ/L 3.7 MEQ/L Chloride Level 95 MEQ/L 90 MEQ/L 92 MEQ/L Carbon Dioxide Level 24.3 MEQ/L 27.3 MEQ/L 27.7 MEQ/L Anion Gap 9 MEQ/L 8 MEQ/L 9 MEQ/L Estimat Glomerular Filtration Rate 107 ML/MIN 79 ML/MIN 75 ML/MIN Imaging Last Impressions Renal Biopsy CT 03/28/17 0000 Signed Impressions: Service Date/Time: March 13:09 - CONCLUSION: Uncomplicated CT guided biopsy of the lower pole left kidney. Erickson Hughes MD Chest X-Ray 03/26/17 1536 Signed Impressions: Service Date/Time: Sunday, March 26, 2017 15:42 - CONCLUSION: 1. Mild basilar airspace disease with probable trace pleural fluid. Deepak Figueroa MD Renal Ultrasound 03/26/17 0000 Signed Impressions: Service Date/Time: Sunday, March 26, 2017 18:31 - CONCLUSION: 1. No evidence of hydronephrosis, mass or stone. 2. Unremarkable urinary bladder. 3. Bilateral pleural effusions. 4. Minimal ascites within the upper abdomen. Daryl Monahan MD Objective Remarks GENERAL: This is a well-nourished, well-developed patient, in no apparent distress. SKIN: No rashes, ecchymoses or lesions. Cool and dry. +2 bilateral lower extremity edema HEAD: Atraumatic. Normocephalic. No temporal or scalp tenderness. EYES: Pupils equal round and reactive. Extraocular motions intact. No scleral icterus. No injection or drainage. ENT: Nose without bleeding, purulent drainage or septal hematoma. Throat without erythema, tonsillar hypertrophy or exudate. Uvula midline. Airway patent. NECK: Trachea midline. No JVD or lymphadenopathy. Supple, nontender, no meningeal signs. CARDIOVASCULAR: Regular rate and rhythm without murmurs, gallops, or rubs. S1 and S2 no S3 or S4 RESPIRATORY: Clear to auscultation. Breath sounds equal bilaterally. No wheezes , rales, or rhonchi. GASTROINTESTINAL: Abdomen soft, non-tender, nondistended. No hepato-splenomegaly , or palpable masses. No guarding. MUSCULOSKELETAL: Extremities without clubbing, cyanosis, positive +2 bilateral lower extremity edema no joint tenderness, effusion, or edema noted. No calf tenderness. Negative Homans sign bilaterally. NEUROLOGICAL: Awake and alert. Cranial nerves II through XII intact. Motor and sensory grossly within normal limits. Five out of 5 muscle strength in all muscle groups. Normal speech. Insight and judgment is good Mood and behaviors appropriate Procedures KIDNEY BIOPSY OF LEFT POLE OF KIDNEY 9 Medications and IVs Current Medications Sodium Chloride (NS Flush) 2 ml UNSCH PRN IVF FLUSH AFTER USING IV ACCESS; Start 03/26/17 at 15:45; Stop 03/26/17 at 18:09; Status DC Furosemide (Lasix Inj) 20 mg ONCE ONCE IV PUSH Last administered on 03/26/17 17:02; Start 03/26/17 at 17:00; Stop 03/26/17 at 17:01; Status DC Clonidine (Catapres) 0.1 mg Q4H PRN PO SBP>160, DBP>90; Start 03/26/17 at 18:00 Lisinopril (Prinivil) 10 mg Q12HR PO Last administered on 03/28/17 22:05; Start 03/26/17 at 21:00; Stop 03/29/17 at 09:26; Status DC Amlodipine Besylate (Norvasc) 5 mg ONCE ONCE PO Last administered on 18:28; Start 03/26/17 at 18:00; Stop 03/26/17 at 18:10; Status DC Amlodipine Besylate (Norvasc) 5 mg DAILY PO Last administered on 03/31/17 08: 27; Start 03/27/17 at 09:00 Furosemide (Lasix Inj) 20 mg BID@,18 IV PUSH Last administered on 03/27/17 09:44; Start 03/26/17 at 18:00; Stop 03/27/17 at 17:16; Status DC Sodium Chloride (NS Flush) 2 ml UNSCH PRN IV FLUSH FLUSH AFTER USING IV ACCESS ; Start 03/26/17 at 18:00 Sodium Chloride (NS Flush) 2 ml BID IV FLUSH Last administered on 03/31/17 19: 59; Start 03/26/17 at 21:00 Acetaminophen (Tylenol) 650 mg Q4H PRN PO TEMP > 100.4; Start 03/26/17 at 18:00 Ondansetron HCl (Zofran Inj) 4 mg Q6H PRN IVP NAUSEA OR VOMITING; Start at 18:00 Prochlorperazine (Compazine Supp) 25 mg Q12H PRN RECTAL NAUSEA OR VOMITING; Start 03/26/17 at 18:00 Zolpidem Tartrate (Ambien) 5 mg HS PRN PO INSOMNIA; Start 03/26/17 at 18:00 Acetaminophen (Tylenol) 650 mg Q6H PRN PO PAIN SCALE 1 TO 2 Last administered on 03/27/17 05:08; Start 03/26/17 at 18:00 Oxycodone/ Acetaminophen (Percocet 5-325 Mg) 1 tab Q6H PRN PO PAIN SCALE 3 TO 5; Start 03/26/17 at 18:00 Oxycodone/ Acetaminophen (Percocet 10-325 Mg) 1 tab Q6H PRN PO PAIN SCALE 6 TO 10; Start 03/26/17 at 18:00 Morphine Sulfate (Morphine Inj) 2 mg Q3H PRN IV PUSH Pain 3-5; if unable to take PO; Start 03/26/17 at 18:00 Morphine Sulfate (Morphine Inj) 4 mg Q3H PRN IV PUSH Pain 6-10;if unable to take PO; Start 03/26/17 at 18:00 Naloxone HCl (Narcan Inj) 0.4 mg UNSCH PRN IV PUSH SEE LABEL COMMENTS; Start at 18:00 Senna/Docusate Sodium (Radha-Colace) 1 tab BID PO Last administered on 20:00; Start 03/26/17 at 21:00 Magnesium Hydroxide (Milk Of Magnesia Liq) 30 ml Q12H PRN PO MILD - MODERATE CONSTIPATION; Start 03/26/17 at 18:00 Sennosides (Senokot) 17.2 mg Q12H PRN PO MODERATE - SEVERE CONSTIPATION; Start 03/26/17 at 18:00 Bisacodyl (Dulcolax Supp) 10 mg DAILY PRN RECTAL SEVERE CONSITIPATION; Start at 18:00 Lactulose (Lactulose Liq) 30 ml DAILY PRN PO SEVERE CONSITIPATION; Start at 18:00 Famotidine (Pepcid) 20 mg BID PO Last administered on 03/31/17 19:59; Start at 21:00 Atorvastatin Calcium (Lipitor) 80 mg DAILY PO Last administered on 03/31/17 08 :28; Start 03/27/17 at 11:00 Furosemide (Lasix Inj) 40 mg BID@18 IV PUSH Last administered on 03/28/17 09:57; Start 03/27/17 at 18:00; Stop 03/28/17 at 17:33; Status DC Potassium Chloride (KCl) 20 meq ONCE ONCE PO Last administered on 03/27/17 18 :06; Start 03/27/17 at 18:00; Stop 03/27/17 at 18:01; Status DC Chlorothiazide Sodium (Diuril Inj) 500 mg ONCE ONCE IV ; Start 03/27/17 at 18: 30; Stop 03/27/17 at 18:31; Status DC Fentanyl Citrate (fentaNYL INJ) 200 mcg STK-MED ONCE .ROUTE Last administered on 03/28/17 13:05; Start 03/28/17 at 12:29; Stop 03/28/17 at 12:30; Status DC Midazolam HCl (Versed Inj) 5 mg STK-MED ONCE .ROUTE Last administered on 13:05; Start 03/28/17 at 12:30; Stop 03/28/17 at 12:31; Status DC Lidocaine HCl (Xylocaine 1% Inj) 20 ml STK-MED ONCE .ROUTE Last administered on 03/28/17 12:46; Start 03/28/17 at 12:46; Stop 03/28/17 at 12:47; Status DC Hydromorphone HCl (Dilaudid) 1 mg Q6H PRN PO Pain post renal biopsy; Start at 14:00; Stop 03/28/17 at 23:59; Status DC Bumetanide (Bumex Inj) 1 mg BID@18 IV PUSH Last administered on 03/29/17 09 :58; Start 03/28/17 at 18:00; Stop 03/29/17 at 15:18; Status DC Levothyroxine Sodium (Synthroid) 25 mcg DAILY@0600 PO Last administered on 04/01 06:18; Start 03/30/17 at 06:00 Levothyroxine Sodium (Synthroid) 25 mcg ONCE ONCE PO Last administered on 03/29 10:25; Start 03/29/17 at 09:30; Stop 03/29/17 at 09:38; Status DC Valsartan (Diovan) 40 mg BID PO Last administered on 03/31/17 20:00; Start at 21:00 Bumetanide (Bumex Inj) 2 mg BID@09,18 IV PUSH Last administered on 03/31/17 17 :15; Start 03/29/17 at 18:00 Chlorothiazide Sodium (Diuril Inj) 500 mg DAILY IV Last administered on 08:28; Start 03/29/17 at 15:15 Benzonatate (Tessalon) 100 mg TID PRN PO cough Last administered on 03/31/17 19:59; Start 03/30/17 at 15:15 Urinary Catheter: No Vascular Central Line Catheter: No A/P Problem List: (1) Nephrotic syndrome ICD Code: N04.9 - Nephrotic syndrome with unspecified morphologic changes (2) Edema ICD Code: R60.9 - Edema, unspecified (3) Proteinuria ICD Code: R80.9 - Proteinuria, unspecified (4) Hypoalbuminemia ICD Code: E88.09 - Other disorders of plasma-protein metabolism, not elsewhere classified (5) Hypertension ICD Code: I10 - Essential (primary) hypertension (6) Hyperlipidemia ICD Code: E78.5 - Hyperlipidemia, unspecified (7) Hypertriglyceridemia ICD Code: E78.1 - Pure hyperglyceridemia (8) Hypothyroidism ICD Code: E03.9 - Hypothyroidism, unspecified Assessment and Plan Nephrotic syndrome has proteinuria -has edema-has hypoalbuminemia-has lipid issues Fluid restrict consult nephrology Started on GEORGE inhibitor- HAVING COUGH SWITCH TO ARB--has chronic cough this may have nothing to do with ARB or GEORGE -states it is worse with cold air which he is having blown on him while he is here in the hospital Calcium channel kailyn Accurate I's and O's Daily weights A.m. labs 24 hour urine in the process of being done Ultrasounds of bilateral kidney have been done SCDs bilateral lower extremities Hypertension SWITCH TO ARB and calcium channel kailyn SWITCHED TO BUMEX When necessary Catapres Hyperlipidemia and hypertriglyceridemia started on high-dose Lipitor Check thyroid panel SHOWS HYPOTHYROIDISM START ON SYNTHROID 25MCG DAILY Fasting lipid panel HIGH CHOLESTEROL AND TRIGLYCERIDES DVT and GI prophylaxis Discussed with patient and RN CHANGE TO ARB ADD SYNTHROID RENAL INSUFFICIENCY- AM LABS Chronic cough from cold air conditioning STILL AWAITING PATHOLOGY Discharge Planning AWAIT PATHOLOGY Problem Qualifiers (1) Edema: Qualified Codes: R60.9 - Edema, unspecified (2) Proteinuria: Qualified Codes: R80.9 - Proteinuria, unspecified (3) Hypertension: Qualified Codes: I10 - Essential (primary) hypertension Pablo Sandoval DO Apr 01, 2017 09:04
[2017-04-01] MEDS: BENZONATATE 100 MG CAP PO PRN (09:34)
[2017-04-01] MEDS: ATORVASTATIN 80 MG TAB PO SCH (09:35)
[2017-04-01] MEDS: DOCUSATE SODIUM 50 MG/SENNA 8.6 MG TAB PO SCH ×2 (09:35→21:00)
[2017-04-01] MEDS: amLODIPine BESYLATE 5 MG TAB PO SCH (09:35)
[2017-04-01] MEDS: FAMOTIDINE 20 MG TAB PO SCH ×2 (09:35→22:00)
[2017-04-01] MEDS: VALSARTAN 40 MG TAB PO SCH ×2 (09:35→22:00)
[2017-04-01] MEDS: CHLOROTHIAZIDE SOD 500 MG VIAL IV SCH (09:36)
[2017-04-01] MEDS: BUMETANIDE INJ 1 MG/4 ML VIAL IV PUSH SCH ×2 (09:36→17:41)
[2017-04-01] MEDS: SODIUM CHLORIDE 0.9% FLUSH 10 ML FLUSH IV FLUSH SCH ×2 (09:37→22:02)
--- NOTE | 2017-04-01 11:02 | PD.ID.CON ---
History of Present Illness Service ID Consult Requested By Dr.Peter Bell Reason for Consult Evaluation and Mment of possible Schistosomiasis in patient with Nephrotic syndrome. Primary Care Physician No Primary Care Physician Diagnoses: History of Present Illness Mr. 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 He reports having received Schistosomiasis prophylaxis with an oral agent in high school but never been diagnosed with disease to best of his recollection. He denies any history of Rheumatic fever or chronic infections such as Hepatitis or TB. [place] and has never swam in lakes or fresh water bodies nor exposed to any water related activities. No family members with known schistosomiasis. [place] the [place] and has been here since. He reports a 3 week history of leg cramps, shortness of breath and dry cough. Subsequently, he had a common cold. He then went on to develop worsening shortness of breath, persistent dry cough, and pedal edema. In fact he reports that he was on skype with one of his friends in [place] who is a shaker plate operator who asked him to go to hospital but he sat on it. His family noticed progressive increase in facial and periorbital swelling while on skype with them. When his condition worsened he decided to come to ED at insistence of his family. He also noticed swelling of his abdomen but retained normal urine output until after hospital admission. Bumex helped increase urine output. He reports having gained at least 10 pounds in 3 weeks. Upon arrival to ED he was noted to be hypertensive, with UA showing proteinuria. Nephrology is on board. Patient underwent renal biopsy which shows Minimal change disease or FSGS. Per d /w 's PA no parasites noted. No fever. No rash. No similar prior episodes. Denies rheumatic fever diagnosis or symptoms suggestive of it. Denies hematuria to suggest S.hematobium. He denies hepatobiliary symptoms suggestive of other Schistosomiasis. He denies any known parasitic infections or stool tests. He denies any diarrhea, N/V. ID was consulted for evaluation and Mment of possible Schistosomiasis in patient with nephrotic syndrome. Review of Systems Constitutional: COMPLAINS OF: Weight gain, DENIES: Diaphoretic episodes, Fatigue, Fever, Weight loss, Chills, Dizziness, Change in appetite, Night Sweats Endocrine: DENIES: Heat/cold intolerance, Polydipsia, Polyuria, Polyphagia Eyes: DENIES: Blurred vision, Diplopia, Eye inflammation, Eye pain, Vision loss , Photosensitivity, Double Vision Ears, nose, mouth, throat: DENIES: Tinnitus, Hearing loss, Vertigo, Nasal discharge, Oral lesions, Throat pain, Hoarseness, Ear Pain, Running Nose, Epistaxis, Sinus Pain, Toothache, Odynophagia Respiratory: COMPLAINS OF: Cough (dry), Shortness of breath Cardiovascular: COMPLAINS OF: Dyspnea on Exertion, Lower Extremity Edema, DENIES: Chest pain, Palpitations, Syncope, PND, Orthopnea, Claudication Gastrointestinal: DENIES: Abdominal pain, Black stools, Bloody stools, Constipation, Diarrhea, Nausea, Vomiting, Difficulty Swallowing, Anorexia Genitourinary: DENIES: Sexual dysfunction, Urinary frequency, Urinary incontinence, Urgency, Hematuria, Dysuria, Nocturia, Penile Discharge, Testicular Pain, Testicular Swelling Musculoskeletal: DENIES: Joint pain, Muscle aches, Stiffness, Joint Swelling, Back pain, Neck pain Integumentary: DENIES: Abnormal pigmentation, Nail changes, Pruritus, Rash Hematologic/lymphatic: DENIES: Bruising, Lymphadenopathy Immunologic/allergic: DENIES: Eczema, Urticaria Neurologic: DENIES: Abnormal gait, Headache, Localized weakness, Paresthesias, Seizures, Speech Problems, Tremor, Poor Balance Psychiatric: DENIES: Anxiety, Confusion, Mood changes, Depression, Hallucinations, Agitation, Suicidal Ideation, Homicidal Ideation, Delusions Except as stated in HPI: all other systems reviewed are Neg Past Family Social History Allergies: Coded Allergies: No Known Allergies (Unverified , 03/26/17) Past Medical History Received Schistosomiasis prophylaxis in [place] in high school None Past Surgical History None Reported Medications Reported Meds & Active Scripts Active No Active Prescriptions or Reported Medications Active Ordered Medications Current Medications Medications (Trade) Dose Ordered Sig/Puma Route Start Time Stop Time Status Last Admin (Catapres) 0.1 mg Q4H PRN PO 03/26/17 18:00 (Norvasc) 5 mg DAILY PO 03/27/17 09:00 04/01/17 09:35 (NS Flush) 2 ml UNSCH PRN IV FLUSH 03/26/17 18:00 (NS Flush) 2 ml BID IV FLUSH 03/26/17 21:00 04/01/17 09:37 (Tylenol) 650 mg Q4H PRN PO 03/26/17 18:00 (Zofran Inj) 4 mg Q6H PRN IVP 03/26/17 18:00 (Compazine Supp) 25 mg Q12H PRN RECTAL 03/26/17 18:00 (Ambien) 5 mg HS PRN PO 03/26/17 18:00 (Tylenol) 650 mg Q6H PRN PO 03/26/17 18:00 03/27/17 05:08 (Percocet 5-325 Mg) 1 tab Q6H PRN PO 03/26/17 18:00 (Percocet 10-325 Mg) 1 tab Q6H PRN PO 03/26/17 18:00 (Morphine Inj) 2 mg Q3H PRN IV PUSH 03/26/17 18:00 (Morphine Inj) 4 mg Q3H PRN IV PUSH 03/26/17 18:00 (Narcan Inj) 0.4 mg UNSCH PRN IV PUSH 03/26/17 18:00 (Radha-Colace) 1 tab BID PO 03/26/17 21:00 04/01/17 09:35 (Milk Of Magnesia Liq) 30 ml Q12H PRN PO 03/26/17 18:00 (Senokot) 17.2 mg Q12H PRN PO 03/26/17 18:00 (Dulcolax Supp) 10 mg DAILY PRN RECTAL 03/26/17 18:00 (Lactulose Liq) 30 ml DAILY PRN PO 03/26/17 18:00 (Pepcid) 20 mg BID PO 03/26/17 21:00 04/01/17 09:35 (Lipitor) 80 mg DAILY PO 03/27/17 11:00 04/01/17 09:35 (Synthroid) 25 mcg DAILY@0600 PO 03/30/17 06:00 04/01/17 06:18 (Diovan) 40 mg BID PO 03/29/17 21:00 04/01/17 09:35 (Bumex Inj) 2 mg BID@09,18 IV PUSH 03/29/17 18:00 04/01/17 09:36 (Diuril Inj) 500 mg DAILY IV 03/29/17 15:15 04/01/17 09:36 (Tessalon) 100 mg TID PRN PO 03/30/17 15:15 04/01/17 09:34 Family History HTN Social History Originally from [place]. Reports being prophylaxed for Schistosomiasis with an oral drug in high school. Denies any tobacco alcohol or illicits, is a student at [employer]. Denies being sexually active. Physical Exam Vital Signs Vital Signs Date Time Temp Pulse Resp B/P (MAP) Pulse Ox O2 Delivery O2 Flow Rate FiO2 04/01/17 08:00 97.7 72 20 121/58 (79) 97 04/01/17 04:00 98.8 83 17 124/60 (81) 96 04/01/17 00:00 97.3 78 17 130/69 (89) 96 03/31/17 20:03 94 03/31/17 20:00 97.5 89 17 136/79 (98) 96 03/31/17 16:45 97.8 83 20 135/70 (91) 95 03/31/17 12:46 96.5 74 20 121/61 (81) 96 Physical Exam GENERAL: This is a well-nourished, well-developed patient, in no apparent distress. SKIN: No rashes, ecchymoses or lesions. Cool and dry. HEAD: Atraumatic. Normocephalic. No temporal or scalp tenderness. EYES: Pupils equal round and reactive. Extraocular motions intact. No scleral icterus. No injection or drainage. ENT: Nose without bleeding, purulent drainage or septal hematoma. Throat without erythema, tonsillar hypertrophy or exudate. Uvula midline. Airway patent. NECK: Trachea midline. Supple, nontender, no meningeal signs. CARDIOVASCULAR: Regular rate and rhythm without murmurs, gallops, or rubs. RESPIRATORY: Clear to auscultation. Breath sounds equal bilaterally decreased in bases. GASTROINTESTINAL: Abdomen soft, non-tender, nondistended. MUSCULOSKELETAL: Extremities without clubbing, cyanosis, or edema. Pedal edema 2 plus noted. NEUROLOGICAL: Awake and alert. Grossly non focal Psych cooperative IV line sites with no e.o infection. Laboratory Laboratory Tests Test 04/01/17 04:35 Blood Urea Nitrogen 39 Creatinine 1.17 Random Glucose 88 Albumin 0.8 Calcium Level 7.8 Phosphorus Level 3.9 Sodium Level 129 Potassium Level 3.7 Chloride Level 92 Carbon Dioxide Level 27.7 Anion Gap 9 Estimat Glomerular Filtration Rate 75 Result Diagram: 03/31/17 0537 04/01/17 0435 Imaging Last Impressions Renal Biopsy CT 03/28/17 0000 Signed Impressions: Service Date/Time: March 13:09 - CONCLUSION: Uncomplicated CT guided biopsy of the lower pole left kidney. Erickson Hughes MD Chest X-Ray 03/26/17 1536 Signed Impressions: Service Date/Time: Sunday, March 26, 2017 15:42 - CONCLUSION: 1. Mild basilar airspace disease with probable trace pleural fluid. Deepak Figueroa MD Renal Ultrasound 03/26/17 0000 Signed Impressions: Service Date/Time: Sunday, March 26, 2017 18:31 - CONCLUSION: 1. No evidence of hydronephrosis, mass or stone. 2. Unremarkable urinary bladder. 3. Bilateral pleural effusions. 4. Minimal ascites within the upper abdomen. Daryl Monahan MD Assessment and Plan Assessment and Plan Nephrotic syndrome. Patient from Schistosomiasis endemic area Prior prophylaxis for Schistosomiasis in oral form(dose and type unknown) Recs Stool ova and parasites for Schistomiasis x 3 separate days Urine for ova and parasite for S.hematobium that infects bladder first (again for 3 separate days) Schistosomiasis serology ordered. Alistair.w pathology about above tests which will be sent to [place] and Serology to [facility]. ASO titer Hepatitis profile negative. HIV antibody negative. Will check HIV PCR to r/o acute retroviral syndrome. Follow above tests Follow clinically. No Schisto treatment at present time. d/w nephrology MONICA Jesus. Ailyn Ga MD Apr 01, 2017 11:02
--- NOTE | 2017-04-01 11:44 | HHI.NPPN ---
Subjective History of Present Illness The patient is a 27 yo male who presented to the ED today for evaluation of swelling, SOB, and flu-like symptoms. 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 Reports that prior to the last few weeks, he has been in excellent health. Started noting the aforementioned symptoms approximately 3 weeks ago that has worsening in the past few days. Denies diabetic hx, no NSAID use, not hypertensive, denies hx of syphilis, hepatitis, nor HIV infection. No known family history of renal issues. Admitting SCr 0.9 and eGFR of 94 Serum albumin at 1.0. UA showed >600mg/dL on random UA all raising concern for nephrotic syndrome. Interval History Pt feeling OK today. Less abdominal distention Cough improved Review of Systems General Constitutional: Weight Change Respiratory Lungs: Cough Cardiovascular Cardiac: Edema Gastrointestinal Gastrointestinal: Abdominal Pain Objective Data Data 04/01/17 04/02/17 19:00 07:00 Intake Total 120 ml Balance 120 ml Intake Oral 120 ml Vital Signs Date Time Temp Pulse Resp B/P (MAP) Pulse Ox O2 Delivery O2 Flow Rate FiO2 04/01/17 08:00 97.7 72 20 121/58 (79) 97 04/01/17 04:00 98.8 83 17 124/60 (81) 96 04/01/17 00:00 97.3 78 17 130/69 (89) 96 03/31/17 20:03 94 03/31/17 20:00 97.5 89 17 136/79 (98) 96 03/31/17 16:45 97.8 83 20 135/70 (91) 95 03/31/17 12:46 96.5 74 20 121/61 (81) 96 -: 03/31/17 0537 04/01/17 0435 Medication Review Current Medications Medications (Trade) Dose Ordered Sig/Puma Route Start Time Stop Time Status Last Admin (Catapres) 0.1 mg Q4H PRN PO 03/26/17 18:00 (Norvasc) 5 mg DAILY PO 03/27/17 09:00 04/01/17 09:35 (NS Flush) 2 ml UNSCH PRN IV FLUSH 03/26/17 18:00 (NS Flush) 2 ml BID IV FLUSH 03/26/17 21:00 04/01/17 09:37 (Tylenol) 650 mg Q4H PRN PO 03/26/17 18:00 (Zofran Inj) 4 mg Q6H PRN IVP 03/26/17 18:00 (Compazine Supp) 25 mg Q12H PRN RECTAL 03/26/17 18:00 (Ambien) 5 mg HS PRN PO 03/26/17 18:00 (Tylenol) 650 mg Q6H PRN PO 03/26/17 18:00 03/27/17 05:08 (Percocet 5-325 Mg) 1 tab Q6H PRN PO 03/26/17 18:00 (Percocet 10-325 Mg) 1 tab Q6H PRN PO 03/26/17 18:00 (Morphine Inj) 2 mg Q3H PRN IV PUSH 03/26/17 18:00 (Morphine Inj) 4 mg Q3H PRN IV PUSH 03/26/17 18:00 (Narcan Inj) 0.4 mg UNSCH PRN IV PUSH 03/26/17 18:00 (Radha-Colace) 1 tab BID PO 03/26/17 21:00 04/01/17 09:35 (Milk Of Magnesia Liq) 30 ml Q12H PRN PO 03/26/17 18:00 (Senokot) 17.2 mg Q12H PRN PO 03/26/17 18:00 (Dulcolax Supp) 10 mg DAILY PRN RECTAL 03/26/17 18:00 (Lactulose Liq) 30 ml DAILY PRN PO 03/26/17 18:00 (Pepcid) 20 mg BID PO 03/26/17 21:00 04/01/17 09:35 (Lipitor) 80 mg DAILY PO 03/27/17 11:00 04/01/17 09:35 (Synthroid) 25 mcg DAILY@0600 PO 03/30/17 06:00 04/01/17 06:18 (Diovan) 40 mg BID PO 03/29/17 21:00 04/01/17 09:35 (Bumex Inj) 2 mg BID@,18 IV PUSH 03/29/17 18:00 04/01/17 09:36 (Diuril Inj) 500 mg DAILY IV 03/29/17 15:15 04/01/17 09:36 (Tessalon) 100 mg TID PRN PO 9/23/17 15:15 04/01/17 09:34 Physical Exam General Appearance: Well Nourished, No Acute Distress, Comfortable Eyes Eye Exam: Sclera White Throat Throat Exam: Oral Mucosa [place] & Moist Pulmonary Resp Exam: Clear Bilaterally, Breath Sounds Equal, No Distress Cardiology CV Exam: Regular, Normal Sinus Rhythm, Good Perfusion Gastrointestinal/Abdomen GI Exam: Soft, Non-Tender Integumentary Skin Exam: Clear, Normal Turgor Extremeties Extremities Exam: Moderate Edema (2+ bilat ankles. 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 It should be noted that an unsampled FSGS could not be entirely excluded given small cortical sample. This very well may be an idiopathic process, however, we do need to exclude infectious processes (negative RPR, HIV, Hep panel). We have asked infectious disease to have a look at the patient as well. Specifically, we are wanting to rule out a parasitic infection such as schistosomiasis before initiating therapy. Dr. Bell has discussed the case with Nephro Pathologist who said that specific staining was not performed for schistosomiasis, but there was no evidence of this per samples that were examined. Typically speaking with schisto, there are other glomerulopathies that are evident other than minimal change. Treatment will consist of Prednisone at 80mg per day for a minimum of 8 weeks ( or 1-2 weeks after complete remission is attained) with tapering dose; dose is usually reduced by 5mg/day every 3-4 days until at 20mg/day, then switched to alternate day regimen, and tapered further over 2-3 months. SRINIVAS prognosis is favorable with most people attaining complete remission with the most importance prognostic factor being initial response to steroid therapy. Complete remission is a reduction of proteinuria to <300mg per day. A partial remission is a reduction of proteinuria by 50%. Relapse is a return in proteinuria to 3500mg per day or greater in patients who have had a complete or partial remission previously. There is a potential for underlying FSGS as this was a small cortical sample. If there would be no response to treatment after 16 weeks of steroid therapy, this diagnosis would have to be considered as discussed with the patient. At that point, consideration would have to be given to repeat biopsy versus starting additional therapy. Will await ID recommendations with potential of starting Prednisone therapy BENNIE. (2) Hypertension ICD Codes: I10 - Essential (primary) hypertension Plan: Improved with medication. Monitor (3) Edema ICD Codes: R60.9 - Edema, unspecified Plan: As above. Problem Qualifiers (1) Proteinuria: Qualified Codes: R80.9 - Proteinuria, unspecified (2) Hypertension: Qualified Codes: I10 - Essential (primary) hypertension (3) Edema: Qualified Codes: R60.9 - Edema, unspecified Sara Jesus Apr 01, 2017 11:44
[2017-04-01 12:00] VITALS: BP 158/84; PULSE 77; RESP 19; TEMP 97.4; O2SAT 96
[2017-04-01 16:00] VITALS: BP 125/59; PULSE 84; RESP 19; TEMP 98; O2SAT 99
[2017-04-01 17:17] LABS: IMMUNOGLOBULIN A 128 MG/DL (71-391)
[2017-04-01 17:28] LABS: IMMUNOGLOBULIN G 205 MG/DL (650-1600); IMMUNOGLOBULIN M 136 MG/DL (41-254)
[2017-04-01] MEDS: SODIUM CHLORIDE 0.9% FLUSH 10 ML FLUSH IV FLUSH PRN (17:42)
[2017-04-01 19:52] LABS: CRYOCRIT NONE DETECTED (NONE DETECTED)
[2017-04-01 20:00] VITALS: BP 126/66; PULSE 76; RESP 18; TEMP 97.4; O2SAT 97
[2017-04-02] VITALS: BP 112/58; PULSE 82; RESP 18; TEMP 97.5; O2SAT 96
[2017-04-02] MEDS: BENZONATATE 100 MG CAP PO PRN ×2 (00:20→18:07)
[2017-04-02 04:00] VITALS: BP 123/69; PULSE 80; RESP 18; TEMP 98.3; O2SAT 96
[2017-04-02] MEDS: LEVOTHYROXINE SODIUM 25 MCG TAB PO SCH (05:40)
[2017-04-02 06:55] LABS: AUTOMATED NEUTROPHIL # 6.4 TH/MM3 (1.8-7.7); BASOPHIL # 0.1 TH/MM3 (0-0.2); BASOPHIL % 0.6 % (0.0-2.0); EOSINOPHIL # 0.2 TH/MM3 (0-0.4); EOSINOPHIL % 1.9 % (0.0-4.0); HEMATOCRIT 37.4 % (39.0-51.0); HEMO FLAGS DIFF FINAL; LYMPH % 18.2 % (9.0-44.0); LYMPHOCYTE # 1.7 TH/MM3 (1.0-4.8); MEAN CELL VOLUME 73.3 FL (80.0-100.0); MEAN CORPUSCULAR HEMOGLOBIN 24.6 PG (27.0-34.0); MEAN CORPUSCULAR HGB CONC 33.5 % (32.0-36.0); MONO % 10.6 % (0.0-8.0); NEUT % 68.7 % (16.0-70.0); PLATELET COUNT 372 TH/MM3 (150-450); WHITE BLOOD COUNT 9.3 TH/MM3 (4.0-11.0)
[2017-04-02 07:23] LABS: BICARBONATE 27.7 MEQ/L (21.0-32.0); MAGNESIUM 2.8 MG/DL (1.5-2.5); POTASSIUM 3.4 MEQ/L (3.5-5.1)
[2017-04-02 08:00] VITALS: BP 118/56; PULSE 77; RESP 20; TEMP 98.3; O2SAT 96
[2017-04-02] MEDS: CHLOROTHIAZIDE SOD 500 MG VIAL IV SCH (09:00)
[2017-04-02 09:19] LABS: STREP ANTIBODY SCREEN NEG (NEG)
[2017-04-02] MEDS: amLODIPine BESYLATE 5 MG TAB PO SCH (09:33)
[2017-04-02] MEDS: ATORVASTATIN 80 MG TAB PO SCH (09:33)
[2017-04-02] MEDS: DOCUSATE SODIUM 50 MG/SENNA 8.6 MG TAB PO SCH ×2 (09:33→09:36)
[2017-04-02] MEDS: VALSARTAN 40 MG TAB PO SCH ×2 (09:33→21:19)
[2017-04-02] MEDS: FAMOTIDINE 20 MG TAB PO SCH ×2 (09:33→21:19)
[2017-04-02] MEDS: BUMETANIDE INJ 1 MG/4 ML VIAL IV PUSH SCH ×2 (09:34→18:12)
[2017-04-02] MEDS: SODIUM CHLORIDE 0.9% FLUSH 10 ML FLUSH IV FLUSH SCH ×2 (09:34→21:22)
--- NOTE | 2017-04-02 11:16 | HHI.PR ---
Subjective Remarks 27-year-old male complains of edema bilateral lower extremities and a generalized swelling in the abdomen as well as some shortness of breath at times. He believes he's gained about 10 pounds in approximately 3 weeks. Last night he noticed ankle edema for the first time. Urination has been normal. Diet has been normal. No fever. No rash. No similar prior episodes. He denies past medical history of any significance. No new or different medication. Onset gradual. Timing constant. Elevated blood pressure here 03-28 had kidney biopsy of left kidney on 03-28 MEDICATIONS ADJUSTED TO BUMEX INSTEAD OF LASIX NOW HAS A DRY COUGH WILL SWITCH OFF GEORGE AND GO TO ARB DW RN AND PATIENT HX OF VIRAL SYNDROME PRIOR TO COMING TO THE HOSPITAL?? 03-30 no new complaints Still has a dry cough even though change the GEORGE inhibitor to ARB Patient states he normally gets a dry cough when it's cold in the room which he feels it is in the hospital patient states he chronically gets a cough when this happens 03-31 AWAIT PATHOLOGY STILL HAS DRY COUGH LESS SWELLING IN LEGS DW RN AND PT AM LABS 04-01 still AWAITING PATHOLOGY DW RN AND PT NO NEW COMPLAINTS 04-02 RENAL WANTS TO START HIGH DOSE PREDNISONE- AWAIT ID CLEARANCE- BUT MULTIPLE STUDIES PENDING PRIOR TO STARTING HIGH DOSE PREDNISONE AWAIT STUDIES FOR ID CLEARANCE Objective Vitals Vital Signs Date Time Temp Pulse Resp B/P (MAP) Pulse Ox O2 Delivery O2 Flow Rate FiO2 04/02/17 08:00 98.3 77 20 118/56 (76) 96 04/02/17 04:00 98.3 80 18 123/69 (87) 96 04/02/17 00:00 97.5 82 18 112/58 (76) 96 04/01/17 20:00 97.4 76 18 126/66 (86) 97 04/01/17 16:00 98.0 84 19 125/59 (81) 99 04/01/17 12:00 97.4 77 19 158/84 (108) 96 I/O 04/01/17 04/01/17 04/01/17 04/02/17 04/02/17 04/02/17 07:00 15:00 23:00 07:00 15:00 23:00 Intake Total 240 ml 120 ml 320 ml 120 ml Balance 240 ml 120 ml 320 ml 120 ml Intake Oral 240 ml 120 ml 320 ml 120 ml # Voids 3 3 # Bowel Movements 1 Result Diagram: 04/02/17 0530 04/02/17 0530 Other Results Laboratory Tests Test 03/31/17 05:37 04/01/17 04:35 04/01/17 12:50 04/01/17 12:55 White Blood Count 9.1 TH/MM3 Red Blood Count 5.08 MIL/MM3 Hemoglobin 12.6 GM/DL Hematocrit 37.3 % Mean Corpuscular Volume 73.3 FL Mean Corpuscular Hemoglobin 24.7 PG Mean Corpuscular Hemoglobin Concent 33.7 % Red Cell Distribution Width 13.9 % Platelet Count 312 TH/MM3 Mean Platelet Volume 8.5 FL Neutrophils (%) (Auto) 64.9 % Lymphocytes (%) (Auto) 18.3 % Monocytes (%) (Auto) 13.9 % Eosinophils (%) (Auto) 2.5 % Basophils (%) (Auto) 0.4 % Neutrophils # (Auto) 5.9 TH/MM3 Lymphocytes # (Auto) 1.7 TH/MM3 Monocytes # (Auto) 1.3 TH/MM3 Eosinophils # (Auto) 0.2 TH/MM3 Basophils # (Auto) 0.0 TH/MM3 CBC Comment DIFF FINAL Differential Comment Blood Urea Nitrogen 31 MG/DL 39 MG/DL Creatinine 1.12 MG/DL 1.17 MG/DL Random Glucose 93 MG/DL 88 MG/DL Total Protein 4.8 GM/DL Albumin 0.7 GM/DL 0.8 GM/DL Calcium Level 7.6 MG/DL 7.8 MG/DL Phosphorus Level 4.4 MG/DL 3.9 MG/DL Magnesium Level 2.6 MG/DL Alkaline Phosphatase 65 U/L Aspartate Amino Transf (AST/SGOT) 22 U/L Alanine Aminotransferase (ALT/SGPT) 16 U/L Total Bilirubin 0.2 MG/DL Sodium Level 125 MEQ/L 129 MEQ/L Potassium Level 3.6 MEQ/L 3.7 MEQ/L Chloride Level 90 MEQ/L 92 MEQ/L Carbon Dioxide Level 27.3 MEQ/L 27.7 MEQ/L Anion Gap 8 MEQ/L 9 MEQ/L Estimat Glomerular Filtration Rate 79 ML/MIN 75 ML/MIN Eosinophil Stool Smear NONE SEEN /HPF Test 04/01/17 16:32 04/02/17 00:50 04/02/17 05:30 04/02/17 10:30 Immunoglobulin G Total 205 MG/DL Immunoglobulin A 128 MG/DL Immunoglobulin M 136 MG/DL Anti-Streptolysin O Antibody Screen NEG White Blood Count 9.3 TH/MM3 Red Blood Count 5.10 MIL/MM3 Hemoglobin 12.5 GM/DL Hematocrit 37.4 % Mean Corpuscular Volume 73.3 FL Mean Corpuscular Hemoglobin 24.6 PG Mean Corpuscular Hemoglobin Concent 33.5 % Red Cell Distribution Width 14.0 % Platelet Count 372 TH/MM3 Mean Platelet Volume 8.3 FL Neutrophils (%) (Auto) 68.7 % Lymphocytes (%) (Auto) 18.2 % Monocytes (%) (Auto) 10.6 % Eosinophils (%) (Auto) 1.9 % Basophils (%) (Auto) 0.6 % Neutrophils # (Auto) 6.4 TH/MM3 Lymphocytes # (Auto) 1.7 TH/MM3 Monocytes # (Auto) 1.0 TH/MM3 Eosinophils # (Auto) 0.2 TH/MM3 Basophils # (Auto) 0.1 TH/MM3 CBC Comment DIFF FINAL Differential Comment Blood Urea Nitrogen 39 MG/DL Creatinine 1.11 MG/DL Random Glucose 75 MG/DL Albumin 0.7 GM/DL Calcium Level 7.7 MG/DL Phosphorus Level 3.9 MG/DL Magnesium Level 2.8 MG/DL Sodium Level 129 MEQ/L Potassium Level 3.4 MEQ/L Chloride Level 93 MEQ/L Carbon Dioxide Level 27.7 MEQ/L Anion Gap 8 MEQ/L Estimat Glomerular Filtration Rate 80 ML/MIN Imaging Last Impressions Renal Biopsy CT 03/28/17 0000 Signed Impressions: Service Date/Time: March 13:09 - CONCLUSION: Uncomplicated CT guided biopsy of the lower pole left kidney. Erickson Hughes MD Chest X-Ray 03/26/17 1536 Signed Impressions: Service Date/Time: Sunday, March 26, 2017 15:42 - CONCLUSION: 1. Mild basilar airspace disease with probable trace pleural fluid. Deepak Figueroa MD Renal Ultrasound 03/26/17 0000 Signed Impressions: Service Date/Time: Sunday, March 26, 2017 18:31 - CONCLUSION: 1. No evidence of hydronephrosis, mass or stone. 2. Unremarkable urinary bladder. 3. Bilateral pleural effusions. 4. Minimal ascites within the upper abdomen. Daryl Monahan MD Objective Remarks GENERAL: This is a well-nourished, well-developed patient, in no apparent distress. SKIN: No rashes, ecchymoses or lesions. Cool and dry. +2 bilateral lower extremity edema HEAD: Atraumatic. Normocephalic. No temporal or scalp tenderness. EYES: Pupils equal round and reactive. Extraocular motions intact. No scleral icterus. No injection or drainage. ENT: Nose without bleeding, purulent drainage or septal hematoma. Throat without erythema, tonsillar hypertrophy or exudate. Uvula midline. Airway patent. NECK: Trachea midline. No JVD or lymphadenopathy. Supple, nontender, no meningeal signs. CARDIOVASCULAR: Regular rate and rhythm without murmurs, gallops, or rubs. S1 and S2 no S3 or S4 RESPIRATORY: Clear to auscultation. Breath sounds equal bilaterally. No wheezes , rales, or rhonchi. GASTROINTESTINAL: Abdomen soft, non-tender, nondistended. No hepato-splenomegaly , or palpable masses. No guarding. MUSCULOSKELETAL: Extremities without clubbing, cyanosis, positive +2 bilateral lower extremity edema no joint tenderness, effusion, or edema noted. No calf tenderness. Negative Homans sign bilaterally. NEUROLOGICAL: Awake and alert. Cranial nerves II through XII intact. Motor and sensory grossly within normal limits. Five out of 5 muscle strength in all muscle groups. Normal speech. Insight and judgment is good Mood and behaviors appropriate Procedures KIDNEY BIOPSY OF LEFT POLE OF KIDNEY 9 Medications and IVs Current Medications Sodium Chloride (NS Flush) 2 ml UNSCH PRN IVF FLUSH AFTER USING IV ACCESS; Start 03/26/17 at 15:45; Stop 03/26/17 at 18:09; Status DC Furosemide (Lasix Inj) 20 mg ONCE ONCE IV PUSH Last administered on 03/26/17 17:02; Start 03/26/17 at 17:00; Stop 03/26/17 at 17:01; Status DC Clonidine (Catapres) 0.1 mg Q4H PRN PO SBP>160, DBP>90; Start 03/26/17 at 18:00 Lisinopril (Prinivil) 10 mg Q12HR PO Last administered on 03/28/17 22:05; Start 03/26/17 at 21:00; Stop 03/29/17 at 09:26; Status DC Amlodipine Besylate (Norvasc) 5 mg ONCE ONCE PO Last administered on 18:28; Start 03/26/17 at 18:00; Stop 03/26/17 at 18:10; Status DC Amlodipine Besylate (Norvasc) 5 mg DAILY PO Last administered on 04/02/17 09: 33; Start 03/27/17 at 09:00 Furosemide (Lasix Inj) 20 mg BID@18 IV PUSH Last administered on 03/27/17 09:44; Start 03/26/17 at 18:00; Stop 03/27/17 at 17:16; Status DC Sodium Chloride (NS Flush) 2 ml UNSCH PRN IV FLUSH FLUSH AFTER USING IV ACCESS Last administered on 04/01/17 17:42; Start 03/26/17 at 18:00 Sodium Chloride (NS Flush) 2 ml BID IV FLUSH Last administered on 04/02/17 09: 34; Start 03/26/17 at 21:00 Acetaminophen (Tylenol) 650 mg Q4H PRN PO TEMP > 100.4; Start 03/26/17 at 18:00 Ondansetron HCl (Zofran Inj) 4 mg Q6H PRN IVP NAUSEA OR VOMITING; Start at 18:00 Prochlorperazine (Compazine Supp) 25 mg Q12H PRN RECTAL NAUSEA OR VOMITING; Start 03/26/17 at 18:00 Zolpidem Tartrate (Ambien) 5 mg HS PRN PO INSOMNIA; Start 03/26/17 at 18:00 Acetaminophen (Tylenol) 650 mg Q6H PRN PO PAIN SCALE 1 TO 2 Last administered on 03/27/17 05:08; Start 03/26/17 at 18:00 Oxycodone/ Acetaminophen (Percocet 5-325 Mg) 1 tab Q6H PRN PO PAIN SCALE 3 TO 5; Start 03/26/17 at 18:00 Oxycodone/ Acetaminophen (Percocet 10-325 Mg) 1 tab Q6H PRN PO PAIN SCALE 6 TO 10; Start 03/26/17 at 18:00 Morphine Sulfate (Morphine Inj) 2 mg Q3H PRN IV PUSH Pain 3-5; if unable to take PO; Start 03/26/17 at 18:00 Morphine Sulfate (Morphine Inj) 4 mg Q3H PRN IV PUSH Pain 6-10;if unable to take PO; Start 03/26/17 at 18:00 Naloxone HCl (Narcan Inj) 0.4 mg UNSCH PRN IV PUSH SEE LABEL COMMENTS; Start at 18:00 Senna/Docusate Sodium (Radha-Colace) 1 tab BID PO Last administered on 09:35; Start 03/26/17 at 21:00 Magnesium Hydroxide (Milk Of Magnesia Liq) 30 ml Q12H PRN PO MILD - MODERATE CONSTIPATION; Start 03/26/17 at 18:00 Sennosides (Senokot) 17.2 mg Q12H PRN PO MODERATE - SEVERE CONSTIPATION; Start 03/26/17 at 18:00 Bisacodyl (Dulcolax Supp) 10 mg DAILY PRN RECTAL SEVERE CONSITIPATION; Start at 18:00 Lactulose (Lactulose Liq) 30 ml DAILY PRN PO SEVERE CONSITIPATION; Start at 18:00 Famotidine (Pepcid) 20 mg BID PO Last administered on 04/02/17 09:33; Start at 21:00 Atorvastatin Calcium (Lipitor) 80 mg DAILY PO Last administered on 04/02/17 09 :33; Start 03/27/17 at 11:00 Furosemide (Lasix Inj) 40 mg BID@09,18 IV PUSH Last administered on 03/28/17 09:57; Start 03/27/17 at 18:00; Stop 03/28/17 at 17:33; Status DC Potassium Chloride (KCl) 20 meq ONCE ONCE PO Last administered on 03/27/17 18 :06; Start 03/27/17 at 18:00; Stop 03/27/17 at 18:01; Status DC Chlorothiazide Sodium (Diuril Inj) 500 mg ONCE ONCE IV ; Start 03/27/17 at 18: 30; Stop 03/27/17 at 18:31; Status DC Fentanyl Citrate (fentaNYL INJ) 200 mcg K-MED ONCE .ROUTE Last administered on 03/28/17 13:05; Start 03/28/17 at 12:29; Stop 03/28/17 at 12:30; Status DC Midazolam HCl (Versed Inj) 5 mg STK-MED ONCE .ROUTE Last administered on 13:05; Start 03/28/17 at 12:30; Stop 03/28/17 at 12:31; Status DC Lidocaine HCl (Xylocaine 1% Inj) 20 ml STK-MED ONCE .ROUTE Last administered on 03/28/17 12:46; Start 03/28/17 at 12:46; Stop 03/28/17 at 12:47; Status DC Hydromorphone HCl (Dilaudid) 1 mg Q6H PRN PO Pain post renal biopsy; Start at 14:00; Stop 03/28/17 at 23:59; Status DC Bumetanide (Bumex Inj) 1 mg BID@18 IV PUSH Last administered on 03/29/17 09 :58; Start 03/28/17 at 18:00; Stop 03/29/17 at 15:18; Status DC Levothyroxine Sodium (Synthroid) 25 mcg DAILY@0600 PO Last administered on 04/02 05:40; Start 03/30/17 at 06:00 Levothyroxine Sodium (Synthroid) 25 mcg ONCE ONCE PO Last administered on 03/29 10:25; Start 03/29/17 at 09:30; Stop 03/29/17 at 09:38; Status DC Valsartan (Diovan) 40 mg BID PO Last administered on 04/02/17 09:33; Start at 21:00 Bumetanide (Bumex Inj) 2 mg BID@18 IV PUSH Last administered on 04/02/17 09 :34; Start 03/29/17 at 18:00 Chlorothiazide Sodium (Diuril Inj) 500 mg DAILY IV Last administered on 09:00; Start 03/29/17 at 15:15 Benzonatate (Tessalon) 100 mg TID PRN PO cough Last administered on 04/02/17 00:20; Start 03/30/17 at 15:15 Urinary Catheter: No Vascular Central Line Catheter: No A/P Problem List: (1) Nephrotic syndrome ICD Code: N04.9 - Nephrotic syndrome with unspecified morphologic changes (2) Edema ICD Code: R60.9 - Edema, unspecified (3) Proteinuria ICD Code: R80.9 - Proteinuria, unspecified (4) Hypoalbuminemia ICD Code: E88.09 - Other disorders of plasma-protein metabolism, not elsewhere classified (5) Hypertension ICD Code: I10 - Essential (primary) hypertension (6) Hyperlipidemia ICD Code: E78.5 - Hyperlipidemia, unspecified (7) Hypertriglyceridemia ICD Code: E78.1 - Pure hyperglyceridemia (8) Hypothyroidism ICD Code: E03.9 - Hypothyroidism, unspecified Assessment and Plan Nephrotic syndrome has proteinuria -has edema-has hypoalbuminemia-has lipid issues Fluid restrict consult nephrology Started on GEORGE inhibitor- HAVING COUGH SWITCH TO ARB--has chronic cough this may have nothing to do with ARB or GEORGE -states it is worse with cold air which he is having blown on him while he is here in the hospital Calcium channel kailyn Accurate I's and O's Daily weights A.m. labs 24 hour urine in the process of being done Ultrasounds of bilateral kidney have been done SCDs bilateral lower extremities Hypertension SWITCH TO ARB and calcium channel kailyn SWITCHED TO BUMEX When necessary Catapres Hyperlipidemia and hypertriglyceridemia started on high-dose Lipitor Check thyroid panel SHOWS HYPOTHYROIDISM START ON SYNTHROID 25MCG DAILY Fasting lipid panel HIGH CHOLESTEROL AND TRIGLYCERIDES DVT and GI prophylaxis Discussed with patient and RN CHANGE TO ARB ADD SYNTHROID RENAL INSUFFICIENCY- AM LABS Chronic cough from cold air conditioning STILL AWAITING PATHOLOGY AWAIT ID CLEARANCE FOR PREDNISONE TREATMENTS REPLACE POTASSIUM Discharge Planning AWAIT PATHOLOGY Problem Qualifiers (1) Edema: Qualified Codes: R60.9 - Edema, unspecified (2) Proteinuria: Qualified Codes: R80.9 - Proteinuria, unspecified (3) Hypertension: Qualified Codes: I10 - Essential (primary) hypertension Pablo Sandoval DO Apr 02, 2017 11:16
[2017-04-02 12:00] VITALS: BP 137/74; PULSE 79; RESP 20; TEMP 98; O2SAT 97
[2017-04-02] MEDS ORDERED: POTASSIUM CHLORIDE 10 MEQ CONTROLLED RELEASE TAB PO ONE (12:00)
--- NOTE | 2017-04-02 13:22 | HHI.NPPN ---
Subjective History of Present Illness The patient is a 27 yo male who presented to the ED today for evaluation of swelling, SOB, and flu-like symptoms. 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 Reports that prior to the last few weeks, he has been in excellent health. Started noting the aforementioned symptoms approximately 3 weeks ago that has worsening in the past few days. Denies diabetic hx, no NSAID use, not hypertensive, denies hx of syphilis, hepatitis, nor HIV infection. No known family history of renal issues. Admitting SCr 0.9 and eGFR of 94 Serum albumin at 1.0. UA showed >600mg/dL on random UA all raising concern for nephrotic syndrome. Interval History Patient had no verbal complaints today. Is anxious to get home. Review of Systems General Constitutional: Weight Change Respiratory Lungs: Cough Cardiovascular Cardiac: Edema Gastrointestinal Gastrointestinal: Abdominal Pain Objective Data Data 04/02/17 04/03/17 19:00 07:00 Intake Total 120 ml Balance 120 ml Intake Oral 120 ml Vital Signs Date Time Temp Pulse Resp B/P (MAP) Pulse Ox O2 Delivery O2 Flow Rate FiO2 04/02/17 12:00 98.0 79 20 137/74 (95) 97 04/02/17 08:00 98.3 77 20 118/56 (76) 96 04/02/17 04:00 98.3 80 18 123/69 (87) 96 04/02/17 00:00 97.5 82 18 112/58 (76) 96 04/01/17 20:00 97.4 76 18 126/66 (86) 97 04/01/17 16:00 98.0 84 19 125/59 (81) 99 -: 04/02/17 0530 04/02/17 0530 Physical Exam General Appearance: Well Nourished, No Acute Distress, Comfortable Eyes Eye Exam: Sclera White Throat Throat Exam: Oral Mucosa [place] & Moist Pulmonary Resp Exam: Clear Bilaterally, Breath Sounds Equal, No Distress Cardiology CV Exam: Regular, Normal Sinus Rhythm, Good Perfusion Gastrointestinal/Abdomen GI Exam: Soft, Non-Tender Integumentary Skin Exam: Clear, Normal Turgor Extremeties Extremities Exam: Moderate Edema (one plus + bilat ankles. 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 It should be noted that an unsampled FSGS could not be entirely excluded given small cortical sample. 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 FSGS apparently has been associated with this condition and FSGS has not been completely ruled out although unlikely. Appreciate infectious disease consultation regarding screening for same. Given severity of the patient's proteinuria and symptomatology as well as clinical findings will initiate therapy with prednisone pending screening for schistosomiasis. This was discussed with infectious disease who indicated the present there is no contraindication to at least initiate therapy pending evaluation. I discussed with the patient and literature was provided to him regarding indications for alternatives to as well as potential benefits and risks associated with prednisone usage. Potential side effects of prednisone were reviewed with him including risk of worsening hypertension, fluid removal, osteoporosis, gastric ulcer with bleeding as well as cataracts. Patient agrees to proceed. The plan will be to start therapy with prednisone at a dosage of about a milligram per kilogram the maximum dosage being 80 mg. Therapy will continue for about 12-16 weeks at this dosing and then subsequently tapering over 6 months. He was advised literature suggests a response rate of relapse of about 90% by 4 months. If the patient does not respond adequately to prednisone we may have to consider the possibility that he does indeed have FSGS in which case consideration may be given to a repeat biopsy and or utilization of cyclosporine or Cytoxan. Will provide the patient with a copy of the biopsy report when available. (2) Hypertension ICD Codes: I10 - Essential (primary) hypertension Plan: Improved with medication. Monitor (3) Edema ICD Codes: R60.9 - Edema, unspecified Plan: As above. (4) Minimal change disease ICD Codes: N04.0 - Nephrotic syndrome with minor glomerular abnormality Plan: As above Problem Qualifiers (1) Proteinuria: Qualified Codes: R80.9 - Proteinuria, unspecified (2) Hypertension: Qualified Codes: I10 - Essential (primary) hypertension (3) Edema: Qualified Codes: R60.9 - Edema, unspecified Terence Bell MD Apr 02, 2017 13:22
[2017-04-02 16:00] VITALS: BP 137/79; PULSE 74; RESP 20; TEMP 97.7; O2SAT 98
[2017-04-02] MEDS: SODIUM CHLORIDE 0.9% FLUSH 10 ML FLUSH IV FLUSH PRN (18:09)
[2017-04-02 20:00] VITALS: BP 133/73; PULSE 74; RESP 18; TEMP 98.2; O2SAT 98
--- NOTE | 2017-04-02 20:18 | HHI.IDPN ---
Subjective Subjective Remarks Mr. Mathew is a 27 y/o male of [place] origin, who is a student at [employer] and hopes to graduate in Jul 2017. He reports having received Schistosomiasis prophylaxis with an oral agent in high school but never been diagnosed with disease to best of his recollection. He denies any history of Rheumatic fever or chronic infections such as Hepatitis or TB. [place] in [place] parts of [place] and has never swam in lakes or fresh water bodies nor exposed to any water related activities. No family members with known schistosomiasis. [place] the [place] in [place] and has been here since. He reports a 3 week history of leg cramps, shortness of breath and dry cough. Subsequently, he had a common cold. He then went on to develop worsening shortness of breath, persistent dry cough, and pedal edema. 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 His family noticed progressive increase in facial and periorbital swelling while on skype with them. When his condition worsened he decided to come to ED at insistence of his family. He also noticed swelling of his abdomen but retained normal urine output until after hospital admission. Bumex helped increase urine output. He reports having gained at least 10 pounds in 3 weeks. Upon arrival to ED he was noted to be hypertensive, with UA showing proteinuria. Nephrology is on board. Patient underwent renal biopsy which shows Minimal change disease or FSGS. Per d /w 's PA no parasites noted. No fever. No rash. No similar prior episodes. Denies rheumatic fever diagnosis or symptoms suggestive of it. Denies hematuria to suggest S.hematobium. He denies hepatobiliary symptoms suggestive of other Schistosomiasis. He denies any known parasitic infections or stool tests. He denies any diarrhea, N/V. ID was consulted for evaluation and Mment of possible Schistosomiasis in patient with nephrotic syndrome. Overnight events reviewed. No fevers No rash No diarrhea Antibiotics None Lines Line sites with no e.o infection Past Medical History reviewed Allergies: Coded Allergies: No Known Allergies (Unverified , 03/26/17) Objective . Vital Signs Date Time Temp Pulse Resp B/P (MAP) Pulse Ox O2 Delivery O2 Flow Rate FiO2 04/02/17 16:00 97.7 74 20 137/79 (98) 98 04/02/17 12:00 98.0 79 20 137/74 (95) 97 04/02/17 08:00 98.3 77 20 118/56 (76) 96 04/02/17 04:00 98.3 80 18 123/69 (87) 96 04/02/17 00:00 97.5 82 18 112/58 (76) 96 04/02/17 04/02/17 04/03/17 15:00 23:00 07:00 Intake Total 120 ml 960 ml Output Total 1000 ml Balance 120 ml -40 ml Intake Oral 120 ml 960 ml Output Urine Total 1000 ml # Bowel Movements 0 . Laboratory Tests Test 04/02/17 05:30 White Blood Count 9.3 TH/MM3 Red Blood Count 5.10 MIL/MM3 Hemoglobin 12.5 GM/DL Hematocrit 37.4 % Mean Corpuscular Volume 73.3 FL Mean Corpuscular Hemoglobin 24.6 PG Mean Corpuscular Hemoglobin Concent 33.5 % Red Cell Distribution Width 14.0 % Platelet Count 372 TH/MM3 Mean Platelet Volume 8.3 FL Neutrophils (%) (Auto) 68.7 % Lymphocytes (%) (Auto) 18.2 % Monocytes (%) (Auto) 10.6 % Eosinophils (%) (Auto) 1.9 % Basophils (%) (Auto) 0.6 % Neutrophils # (Auto) 6.4 TH/MM3 Lymphocytes # (Auto) 1.7 TH/MM3 Monocytes # (Auto) 1.0 TH/MM3 Eosinophils # (Auto) 0.2 TH/MM3 Basophils # (Auto) 0.1 TH/MM3 CBC Comment DIFF FINAL Differential Comment Laboratory Tests Test 04/01/17 04:35 04/02/17 05:30 Blood Urea Nitrogen 39 MG/DL 39 MG/DL Creatinine 1.17 MG/DL 1.11 MG/DL Random Glucose 88 MG/DL 75 MG/DL Albumin 0.8 GM/DL 0.7 GM/DL Calcium Level 7.8 MG/DL 7.7 MG/DL Phosphorus Level 3.9 MG/DL 3.9 MG/DL Sodium Level 129 MEQ/L 129 MEQ/L Potassium Level 3.7 MEQ/L 3.4 MEQ/L Chloride Level 92 MEQ/L 93 MEQ/L Carbon Dioxide Level 27.7 MEQ/L 27.7 MEQ/L Anion Gap 9 MEQ/L 8 MEQ/L Estimat Glomerular Filtration Rate 75 ML/MIN 80 ML/MIN Magnesium Level 2.8 MG/DL Microbiology Date/Time Source Procedure Growth Status 04/01/17 12:50 Stool Stool Cryptosporidium Exam - Final NEGATIVE - NO CRYPTOSPORIDIUM ANTIGEN... Complete 04/01/17 12:50 Stool Stool Stool Pus (BERTIN) - Final RARE WBC Complete 04/01/17 12:50 Stool Stool Giardia Antigen (BERTIN) - Final NEGATIVE - NO GIARDIA ANTIGEN DETECTE... Complete 04/01/17 12:50 Other - Final Complete Imaging Last Impressions Renal Biopsy CT 03/28/17 0000 Signed Impressions: Service Date/Time: March 13:09 - CONCLUSION: Uncomplicated CT guided biopsy of the lower pole left kidney. Erickson Hughes MD Chest X-Ray 03/26/17 1536 Signed Impressions: Service Date/Time: Sunday, March 26, 2017 15:42 - CONCLUSION: 1. Mild basilar airspace disease with probable trace pleural fluid. Deepak Figueroa MD Renal Ultrasound 03/26/17 0000 Signed Impressions: Service Date/Time: Sunday, March 26, 2017 18:31 - CONCLUSION: 1. No evidence of hydronephrosis, mass or stone. 2. Unremarkable urinary bladder. 3. Bilateral pleural effusions. 4. Minimal ascites within the upper abdomen. Daryl Monahan MD Physical Exam GENERAL: This is a well-nourished, well-developed patient, in no apparent distress. SKIN: No rashes, ecchymoses or lesions. Cool and dry. HEAD: Atraumatic. Normocephalic. No temporal or scalp tenderness. EYES: Pupils equal round and reactive. Extraocular motions intact. No scleral icterus. No injection or drainage. ENT: Nose without bleeding, purulent drainage or septal hematoma. Throat without erythema, tonsillar hypertrophy or exudate. Uvula midline. Airway patent. NECK: Trachea midline. Supple, nontender, no meningeal signs. CARDIOVASCULAR: Regular rate and rhythm without murmurs, gallops, or rubs. RESPIRATORY: Clear to auscultation. Breath sounds equal bilaterally decreased in bases. GASTROINTESTINAL: Abdomen soft, non-tender, nondistended. MUSCULOSKELETAL: Extremities without clubbing, cyanosis, or edema. Pedal edema 2 plus noted. NEUROLOGICAL: Awake and alert. Grossly non focal Psych cooperative IV line sites with no e.o infection. Assessment & Plan Remarks Nephrotic syndrome. Patient from Schistosomiasis endemic area Prior prophylaxis for Schistosomiasis in oral form(dose and type unknown) Recs Stool ova and parasites for Schistomiasis x 3 separate days Urine for ova and parasite for S.hematobium that infects bladder first (again for 3 separate days) Schistosomiasis serology ordered. D.w pathology about above tests which will be sent to [facility] and Serology to [facility]. ASO titer Hepatitis profile negative. HIV antibody negative. Follow HIV PCR to r/o acute retroviral syndrome. Follow above tests Follow clinically. No Schisto treatment at present time. d/w nephrology ok to start Oral steroids if helps clinically. Discussed cases not responsive to steroids that are found to be Schistosomiasis related. Ailyn Ga MD Apr 02, 2017 20:18
[2017-04-02] MEDS: predniSONE 10 MG TAB PO SCH (21:20)
[2017-04-03] VITALS (7 sets, daily range): BP systolic 127–143; BP diastolic 67–77; PULSE 73–88; RESP 17–20; TEMP 97.3–98.7; O2SAT 95–96
[2017-04-03] MEDS: LEVOTHYROXINE SODIUM 25 MCG TAB PO SCH (05:21)
[2017-04-03 07:16] LABS: BICARBONATE 28.3 MEQ/L (21.0-32.0); MAGNESIUM 2.9 MG/DL (1.5-2.5); POTASSIUM 3.9 MEQ/L (3.5-5.1)
[2017-04-03 07:17] LABS: AUTOMATED NEUTROPHIL # 6.3 TH/MM3 (1.8-7.7); BASOPHIL % 0.1 % (0.0-2.0); HEMATOCRIT 40.9 % (39.0-51.0); HEMO FLAGS DIFF FINAL; LYMPHOCYTE # 0.6 TH/MM3 (1.0-4.8); MEAN CELL VOLUME 73.5 FL (80.0-100.0); MEAN CORPUSCULAR HEMOGLOBIN 24.7 PG (27.0-34.0); MEAN CORPUSCULAR HGB CONC 33.6 % (32.0-36.0); MONO % 1.4 % (0.0-8.0); NEUT % 90.5 % (16.0-70.0); PLATELET COUNT 434 TH/MM3 (150-450); RED BLOOD COUNT 5.56 MIL/MM3 (4.50-5.90); RED CELL DISTRIBUTION WIDTH 13.7 % (11.6-17.2); WHITE BLOOD COUNT 6.9 TH/MM3 (4.0-11.0)
[2017-04-03] MEDS: VALSARTAN 40 MG TAB PO SCH ×2 (08:58→21:05)
[2017-04-03] MEDS: ATORVASTATIN 80 MG TAB PO SCH (08:58)
[2017-04-03] MEDS: BUMETANIDE INJ 1 MG/4 ML VIAL IV PUSH SCH ×2 (08:59→17:25)
[2017-04-03] MEDS: FAMOTIDINE 20 MG TAB PO SCH ×2 (08:59→21:05)
[2017-04-03] MEDS: amLODIPine BESYLATE 5 MG TAB PO SCH (08:59)
[2017-04-03] MEDS: DOCUSATE SODIUM 50 MG/SENNA 8.6 MG TAB PO SCH ×3 (09:00→21:05)
[2017-04-03] MEDS: SODIUM CHLORIDE 0.9% FLUSH 10 ML FLUSH IV FLUSH SCH ×2 (09:01→21:05)
[2017-04-03] MEDS: CHLOROTHIAZIDE SOD 500 MG VIAL IV SCH (09:07)
[2017-04-03] MEDS: BENZONATATE 100 MG CAP PO PRN ×2 (09:08→18:41)
[2017-04-03] MEDS: predniSONE 10 MG TAB PO SCH ×2 (09:08→21:05)
--- NOTE | 2017-04-03 10:07 | HHI.PR ---
Subjective Remarks 27-year-old male complains of edema bilateral lower extremities and a generalized swelling in the abdomen as well as some shortness of breath at times. He believes he's gained about 10 pounds in approximately 3 weeks. Last night he noticed ankle edema for the first time. Urination has been normal. Diet has been normal. No fever. No rash. No similar prior episodes. He denies past medical history of any significance. No new or different medication. Onset gradual. Timing constant. Elevated blood pressure here 03-28 had kidney biopsy of left kidney on 03-28 MEDICATIONS ADJUSTED TO BUMEX INSTEAD OF LASIX NOW HAS A DRY COUGH WILL SWITCH OFF GEORGE AND GO TO ARB DW RN AND PATIENT HX OF VIRAL SYNDROME PRIOR TO COMING TO THE HOSPITAL?? 03-30 no new complaints Still has a dry cough even though change the GEORGE inhibitor to ARB Patient states he normally gets a dry cough when it's cold in the room which he feels it is in the hospital patient states he chronically gets a cough when this happens 03-31 AWAIT PATHOLOGY STILL HAS DRY COUGH LESS SWELLING IN LEGS DW RN AND PT AM LABS 04-01 still AWAITING PATHOLOGY DW RN AND PT NO NEW COMPLAINTS 04-02 RENAL WANTS TO START HIGH DOSE PREDNISONE- AWAIT ID CLEARANCE- BUT MULTIPLE STUDIES PENDING PRIOR TO STARTING HIGH DOSE PREDNISONE AWAIT STUDIES FOR ID CLEARANCE 04-03 STARTED ON PREDNISONE 40MG PO BID YESTERDAY OFFICIAL PATH REPORT NOT AVAILABLE YET NOT CLEARED FOR DC YET AM LABS RENAL FUNCTIONS A LITTLE WORSE Objective Vitals Vital Signs Date Time Temp Pulse Resp B/P (MAP) Pulse Ox O2 Delivery O2 Flow Rate FiO2 04/03/17 08:00 97.9 78 20 134/73 (93) 96 04/03/17 06:02 73 04/03/17 04:00 98.7 88 20 134/77 (96) 96 04/03/17 00:00 98.3 81 20 129/67 (87) 95 04/02/17 20:00 98.2 74 18 133/73 (93) 98 04/02/17 16:00 97.7 74 20 137/79 (98) 98 04/02/17 12:00 98.0 79 20 137/74 (95) 97 I/O 04/02/17 04/02/17 04/02/17 04/03/17 04/03/17 04/03/17 07:00 15:00 23:00 07:00 15:00 23:00 Intake Total 320 ml 120 ml 960 ml 320 ml 240 ml Output Total 1000 ml Balance 320 ml 120 ml -40 ml 320 ml 240 ml Intake Oral 320 ml 120 ml 960 ml 320 ml 240 ml Output Urine Total 1000 ml # Voids 3 3 # Bowel Movements 1 0 0 Result Diagram: 04/03/17 0606 04/03/17 0606 Other Results Laboratory Tests Test 04/01/17 04:35 04/01/17 12:50 04/01/17 16:32 04/02/17 00:50 Blood Urea Nitrogen 39 MG/DL Creatinine 1.17 MG/DL Random Glucose 88 MG/DL Albumin 0.8 GM/DL Calcium Level 7.8 MG/DL Phosphorus Level 3.9 MG/DL Sodium Level 129 MEQ/L Potassium Level 3.7 MEQ/L Chloride Level 92 MEQ/L Carbon Dioxide Level 27.7 MEQ/L Anion Gap 9 MEQ/L Estimat Glomerular Filtration Rate 75 ML/MIN Eosinophil Stool Smear NONE SEEN /HPF Miscellaneous Test Result Immunoglobulin G Total 205 MG/DL Immunoglobulin A 128 MG/DL Immunoglobulin M 136 MG/DL Anti-Streptolysin O Antibody Screen NEG Test 04/02/17 05:30 04/02/17 10:30 04/02/17 11:50 04/02/17 13:40 White Blood Count 9.3 TH/MM3 Red Blood Count 5.10 MIL/MM3 Hemoglobin 12.5 GM/DL Hematocrit 37.4 % Mean Corpuscular Volume 73.3 FL Mean Corpuscular Hemoglobin 24.6 PG Mean Corpuscular Hemoglobin Concent 33.5 % Red Cell Distribution Width 14.0 % Platelet Count 372 TH/MM3 Mean Platelet Volume 8.3 FL Neutrophils (%) (Auto) 68.7 % Lymphocytes (%) (Auto) 18.2 % Monocytes (%) (Auto) 10.6 % Eosinophils (%) (Auto) 1.9 % Basophils (%) (Auto) 0.6 % Neutrophils # (Auto) 6.4 TH/MM3 Lymphocytes # (Auto) 1.7 TH/MM3 Monocytes # (Auto) 1.0 TH/MM3 Eosinophils # (Auto) 0.2 TH/MM3 Basophils # (Auto) 0.1 TH/MM3 CBC Comment DIFF FINAL Differential Comment Blood Urea Nitrogen 39 MG/DL Creatinine 1.11 MG/DL Random Glucose 75 MG/DL Albumin 0.7 GM/DL Calcium Level 7.7 MG/DL Phosphorus Level 3.9 MG/DL Magnesium Level 2.8 MG/DL Sodium Level 129 MEQ/L Potassium Level 3.4 MEQ/L Chloride Level 93 MEQ/L Carbon Dioxide Level 27.7 MEQ/L Anion Gap 8 MEQ/L Estimat Glomerular Filtration Rate 80 ML/MIN Test 04/02/17 22:15 04/03/17 06:06 White Blood Count 6.9 TH/MM3 Red Blood Count 5.56 MIL/MM3 Hemoglobin 13.7 GM/DL Hematocrit 40.9 % Mean Corpuscular Volume 73.5 FL Mean Corpuscular Hemoglobin 24.7 PG Mean Corpuscular Hemoglobin Concent 33.6 % Red Cell Distribution Width 13.7 % Platelet Count 434 TH/MM3 Mean Platelet Volume 8.5 FL Neutrophils (%) (Auto) 90.5 % Lymphocytes (%) (Auto) 8.0 % Monocytes (%) (Auto) 1.4 % Eosinophils (%) (Auto) 0.0 % Basophils (%) (Auto) 0.1 % Neutrophils # (Auto) 6.3 TH/MM3 Lymphocytes # (Auto) 0.6 TH/MM3 Monocytes # (Auto) 0.1 TH/MM3 Eosinophils # (Auto) 0.0 TH/MM3 Basophils # (Auto) 0.0 TH/MM3 CBC Comment DIFF FINAL Differential Comment Blood Urea Nitrogen 43 MG/DL Creatinine 1.46 MG/DL Random Glucose 127 MG/DL Albumin 0.9 GM/DL Calcium Level 8.4 MG/DL Phosphorus Level 3.9 MG/DL Magnesium Level 2.9 MG/DL Sodium Level 127 MEQ/L Potassium Level 3.9 MEQ/L Chloride Level 90 MEQ/L Carbon Dioxide Level 28.3 MEQ/L Anion Gap 9 MEQ/L Estimat Glomerular Filtration Rate 58 ML/MIN Imaging Last Impressions Renal Biopsy CT 03/28/17 0000 Signed Impressions: Service Date/Time: March 13:09 - CONCLUSION: Uncomplicated CT guided biopsy of the lower pole left kidney. Erickson Hughes MD Chest X-Ray 03/26/17 1536 Signed Impressions: Service Date/Time: Sunday, March 26, 2017 15:42 - CONCLUSION: 1. Mild basilar airspace disease with probable trace pleural fluid. Deepak Figueroa MD Renal Ultrasound 03/26/17 0000 Signed Impressions: Service Date/Time: Sunday, March 26, 2017 18:31 - CONCLUSION: 1. No evidence of hydronephrosis, mass or stone. 2. Unremarkable urinary bladder. 3. Bilateral pleural effusions. 4. Minimal ascites within the upper abdomen. Daryl Monahan MD Objective Remarks GENERAL: This is a well-nourished, well-developed patient, in no apparent distress. SKIN: No rashes, ecchymoses or lesions. Cool and dry. +2 bilateral lower extremity edema HEAD: Atraumatic. Normocephalic. No temporal or scalp tenderness. EYES: Pupils equal round and reactive. Extraocular motions intact. No scleral icterus. No injection or drainage. ENT: Nose without bleeding, purulent drainage or septal hematoma. Throat without erythema, tonsillar hypertrophy or exudate. Uvula midline. Airway patent. NECK: Trachea midline. No JVD or lymphadenopathy. Supple, nontender, no meningeal signs. CARDIOVASCULAR: Regular rate and rhythm without murmurs, gallops, or rubs. S1 and S2 no S3 or S4 RESPIRATORY: Clear to auscultation. Breath sounds equal bilaterally. No wheezes , rales, or rhonchi. GASTROINTESTINAL: Abdomen soft, non-tender, nondistended. No hepato-splenomegaly , or palpable masses. No guarding. MUSCULOSKELETAL: Extremities without clubbing, cyanosis, positive +2 bilateral lower extremity edema no joint tenderness, effusion, or edema noted. No calf tenderness. Negative Homans sign bilaterally. NEUROLOGICAL: Awake and alert. Cranial nerves II through XII intact. Motor and sensory grossly within normal limits. Five out of 5 muscle strength in all muscle groups. Normal speech. Insight and judgment is good Mood and behaviors appropriate Procedures KIDNEY BIOPSY OF LEFT POLE OF KIDNEY 9-21 Medications and IVs Current Medications Sodium Chloride (NS Flush) 2 ml UNSCH PRN IVF FLUSH AFTER USING IV ACCESS; Start 03/26/17 at 15:45; Stop 03/26/17 at 18:09; Status DC Furosemide (Lasix Inj) 20 mg ONCE ONCE IV PUSH Last administered on 03/26/17t 17:02; Start 03/26/17 at 17:00; Stop 03/26/17 at 17:01; Status DC Clonidine (Catapres) 0.1 mg Q4H PRN PO SBP>160, DBP>90; Start 03/26/17 at 18:00 Lisinopril (Prinivil) 10 mg Q12HR PO Last administered on 03/28/17 22:05; Start 03/26/17 at 21:00; Stop 03/29/17 at 09:26; Status DC Amlodipine Besylate (Norvasc) 5 mg ONCE ONCE PO Last administered on 18:28; Start 03/26/17 at 18:00; Stop 03/26/17 at 18:10; Status DC Amlodipine Besylate (Norvasc) 5 mg DAILY PO Last administered on 04/03/17 08: 59; Start 03/27/17 at 09:00 Furosemide (Lasix Inj) 20 mg BID@09,18 IV PUSH Last administered on 03/27/17 09:44; Start 03/26/17 at 18:00; Stop 03/27/17 at 17:16; Status DC Sodium Chloride (NS Flush) 2 ml UNSCH PRN IV FLUSH FLUSH AFTER USING IV ACCESS Last administered on 04/02/17 18:09; Start 03/26/17 at 18:00 Sodium Chloride (NS Flush) 2 ml BID IV FLUSH Last administered on 04/03/17 09: 01; Start 03/26/17 at 21:00 Acetaminophen (Tylenol) 650 mg Q4H PRN PO TEMP > 100.4; Start 03/26/17 at 18:00 Ondansetron HCl (Zofran Inj) 4 mg Q6H PRN IVP NAUSEA OR VOMITING; Start at 18:00 Prochlorperazine (Compazine Supp) 25 mg Q12H PRN RECTAL NAUSEA OR VOMITING; Start 03/26/17 at 18:00 Zolpidem Tartrate (Ambien) 5 mg HS PRN PO INSOMNIA; Start 03/26/17 at 18:00 Acetaminophen (Tylenol) 650 mg Q6H PRN PO PAIN SCALE 1 TO 2 Last administered on 03/27/17 05:08; Start 03/26/17 at 18:00 Oxycodone/ Acetaminophen (Percocet 5-325 Mg) 1 tab Q6H PRN PO PAIN SCALE 3 TO 5; Start 03/26/17 at 18:00 Oxycodone/ Acetaminophen (Percocet 10-325 Mg) 1 tab Q6H PRN PO PAIN SCALE 6 TO 10; Start 03/26/17 at 18:00 Morphine Sulfate (Morphine Inj) 2 mg Q3H PRN IV PUSH Pain 3-5; if unable to take PO; Start 03/26/17 at 18:00 Morphine Sulfate (Morphine Inj) 4 mg Q3H PRN IV PUSH Pain 6-10;if unable to take PO; Start 03/26/17 at 18:00 Naloxone HCl (Narcan Inj) 0.4 mg UNSCH PRN IV PUSH SEE LABEL COMMENTS; Start at 18:00 Senna/Docusate Sodium (Radha-Colace) 1 tab BID PO Last administered on 09:35; Start 03/26/17 at 21:00 Magnesium Hydroxide (Milk Of Magnesia Liq) 30 ml Q12H PRN PO MILD - MODERATE CONSTIPATION; Start 03/26/17 at 18:00 Sennosides (Senokot) 17.2 mg Q12H PRN PO MODERATE - SEVERE CONSTIPATION; Start 03/26/17 at 18:00 Bisacodyl (Dulcolax Supp) 10 mg DAILY PRN RECTAL SEVERE CONSITIPATION; Start at 18:00 Lactulose (Lactulose Liq) 30 ml DAILY PRN PO SEVERE CONSITIPATION; Start at 18:00 Famotidine (Pepcid) 20 mg BID PO Last administered on 04/03/17 08:59; Start at 21:00 Atorvastatin Calcium (Lipitor) 80 mg DAILY PO Last administered on 04/03/17 08 :58; Start 03/27/17 at 11:00 Furosemide (Lasix Inj) 40 mg BID@ IV PUSH Last administered on 03/28/17 09:57; Start 03/27/17 at 18:00; Stop 03/28/17 at 17:33; Status DC Potassium Chloride (KCl) 20 meq ONCE ONCE PO Last administered on 03/27/17 18 :06; Start 03/27/17 at 18:00; Stop 03/27/17 at 18:01; Status DC Chlorothiazide Sodium (Diuril Inj) 500 mg ONCE ONCE IV ; Start 03/27/17 at 18: 30; Stop 03/27/17 at 18:31; Status DC Fentanyl Citrate (fentaNYL INJ) 200 mcg STK-MED ONCE .ROUTE Last administered on 03/28/17 13:05; Start 03/28/17 at 12:29; Stop 03/28/17 at 12:30; Status DC Midazolam HCl (Versed Inj) 5 mg STK-MED ONCE .ROUTE Last administered on 13:05; Start 03/28/17 at 12:30; Stop 03/28/17 at 12:31; Status DC Lidocaine HCl (Xylocaine 1% Inj) 20 ml STK-MED ONCE .ROUTE Last administered on 03/28/17 12:46; Start 03/28/17 at 12:46; Stop 03/28/17 at 12:47; Status DC Hydromorphone HCl (Dilaudid) 1 mg Q6H PRN PO Pain post renal biopsy; Start at 14:00; Stop 03/28/17 at 23:59; Status DC Bumetanide (Bumex Inj) 1 mg BID@18 IV PUSH Last administered on 03/29/17 09 :58; Start 03/28/17 at 18:00; Stop 03/29/17 at 15:18; Status DC Levothyroxine Sodium (Synthroid) 25 mcg DAILY@0600 PO Last administered on 04/03 05:21; Start 03/30/17 at 06:00 Levothyroxine Sodium (Synthroid) 25 mcg ONCE ONCE PO Last administered on 03/29 10:25; Start 03/29/17 at 09:30; Stop 03/29/17 at 09:38; Status DC Valsartan (Diovan) 40 mg BID PO Last administered on 04/03/17 08:58; Start at 21:00 Bumetanide (Bumex Inj) 2 mg BID@18 IV PUSH Last administered on 04/03/17 08 :59; Start 03/29/17 at 18:00 Chlorothiazide Sodium (Diuril Inj) 500 mg DAILY IV Last administered on 09:07; Start 03/29/17 at 15:15 Benzonatate (Tessalon) 100 mg TID PRN PO cough Last administered on 04/03/17 09:08; Start 03/30/17 at 15:15 Potassium Chloride (KCl) 40 meq ONCE ONCE PO Last administered on 04/02/17 14 :44; Start 04/02/17 at 12:00; Stop 04/02/17 at 12:01; Status DC Prednisone (Deltasone) 40 mg BID PO Last administered on 04/03/17 09:08; Start 04/02/17 at 21:00 Urinary Catheter: No Vascular Central Line Catheter: No A/P Problem List: (1) Nephrotic syndrome ICD Code: N04.9 - Nephrotic syndrome with unspecified morphologic changes (2) Edema ICD Code: R60.9 - Edema, unspecified (3) Proteinuria ICD Code: R80.9 - Proteinuria, unspecified (4) Hypoalbuminemia ICD Code: E88.09 - Other disorders of plasma-protein metabolism, not elsewhere classified (5) Hypertension ICD Code: I10 - Essential (primary) hypertension (6) Hyperlipidemia ICD Code: E78.5 - Hyperlipidemia, unspecified (7) Hypertriglyceridemia ICD Code: E78.1 - Pure hyperglyceridemia (8) Hypothyroidism ICD Code: E03.9 - Hypothyroidism, unspecified Assessment and Plan Nephrotic syndrome has proteinuria -has edema-has hypoalbuminemia-has lipid issues Fluid restrict consult nephrology Started on GEORGE inhibitor- HAVING COUGH SWITCH TO ARB--has chronic cough this may have nothing to do with ARB or GEORGE -states it is worse with cold air which he is having blown on him while he is here in the hospital Calcium channel kailyn Accurate I's and O's Daily weights A.m. labs 24 hour urine in the process of being done Ultrasounds of bilateral kidney have been done SCDs bilateral lower extremities Hypertension SWITCH TO ARB and calcium channel kailyn SWITCHED TO BUMEX When necessary Catapres Hyperlipidemia and hypertriglyceridemia started on high-dose Lipitor Check thyroid panel SHOWS HYPOTHYROIDISM START ON SYNTHROID 25MCG DAILY Fasting lipid panel HIGH CHOLESTEROL AND TRIGLYCERIDES DVT and GI prophylaxis Discussed with patient and RN CHANGE TO ARB ADD SYNTHROID RENAL INSUFFICIENCY- AM LABS- ACTUALLY A LITTLE WORSE ON LABS WAS STARTED ON PREDNISONE 40MG PO BID 04-02 Chronic cough from cold air conditioning STILL AWAITING PATHOLOGY REPLACE POTASSIUM AM LABS DW RN AND PT Discharge Planning AWAIT PATHOLOGY Problem Qualifiers (1) Edema: Qualified Codes: R60.9 - Edema, unspecified (2) Proteinuria: Qualified Codes: R80.9 - Proteinuria, unspecified (3) Hypertension: Qualified Codes: I10 - Essential (primary) hypertension Pablo Sandoval DO Apr 03, 2017 10:07
--- NOTE | 2017-04-03 18:10 | HHI.NPPN ---
Subjective History of Present Illness The patient is a 27 yo male who presented to the ED today for evaluation of swelling, SOB, and flu-like symptoms. 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 Reports that prior to the last few weeks, he has been in excellent health. Started noting the aforementioned symptoms approximately 3 weeks ago that has worsening in the past few days. Denies diabetic hx, no NSAID use, not hypertensive, denies hx of syphilis, hepatitis, nor HIV infection. No known family history of renal issues. Admitting SCr 0.9 and eGFR of 94 Serum albumin at 1.0. UA showed >600mg/dL on random UA all raising concern for nephrotic syndrome. Interval History Pt feeling OK today. (Sara Jesus) Review of Systems Respiratory Lungs: Cough (Sara Jesus) Cardiovascular Cardiac: Edema (Sara Jesus) Objective Data Data 04/03/17 04/04/17 19:00 07:00 Intake Total 1240 ml Output Total 1000 ml Balance 240 ml Intake Oral 1240 ml Output Urine Total 1000 ml # Bowel Movements 1 Vital Signs Date Time Temp Pulse Resp B/P (MAP) Pulse Ox O2 Delivery O2 Flow Rate FiO2 04/03/17 16:00 98.3 86 20 130/69 (89) 95 04/03/17 12:00 97.5 78 20 127/69 (88) 95 04/03/17 08:00 97.9 78 20 134/73 (93) 96 04/03/17 06:02 73 04/03/17 04:00 98.7 88 20 134/77 (96) 96 04/03/17 00:00 98.3 81 20 129/67 (87) 95 04/02/17 20:00 98.2 74 18 133/73 (93) 98 (Sara Jesus) -: 04/03/17 0606 04/03/17 0606 Imaging Last Impressions Renal Biopsy CT 03/28/17 0000 Signed Impressions: Service Date/Time: March 13:09 - CONCLUSION: Uncomplicated CT guided biopsy of the lower pole left kidney. Erickson Hughes MD Chest X-Ray 03/26/17 1536 Signed Impressions: Service Date/Time: Sunday, March 26, 2017 15:42 - CONCLUSION: 1. Mild basilar airspace disease with probable trace pleural fluid. Deepak Figueroa MD Renal Ultrasound 03/26/17 0000 Signed Impressions: Service Date/Time: Sunday, March 26, 2017 18:31 - CONCLUSION: 1. No evidence of hydronephrosis, mass or stone. 2. Unremarkable urinary bladder. 3. Bilateral pleural effusions. 4. Minimal ascites within the upper abdomen. Daryl Monahan MD Medication Review Current Medications Medications (Trade) Dose Ordered Sig/Puma Route Start Time Stop Time Status Last Admin (Catapres) 0.1 mg Q4H PRN PO 03/26/17 18:00 (Norvasc) 5 mg DAILY PO 03/27/17 09:00 04/03/17 08:59 (NS Flush) 2 ml UNSCH PRN IV FLUSH 03/26/17 18:00 04/02/17 18:09 (NS Flush) 2 ml BID IV FLUSH 03/26/17 21:00 04/03/17 09:01 (Tylenol) 650 mg Q4H PRN PO 03/26/17 18:00 (Zofran Inj) 4 mg Q6H PRN IVP 03/26/17 18:00 (Compazine Supp) 25 mg Q12H PRN RECTAL 03/26/17 18:00 (Ambien) 5 mg HS PRN PO 03/26/17 18:00 (Tylenol) 650 mg Q6H PRN PO 03/26/17 18:00 03/27/17 05:08 (Percocet 5-325 Mg) 1 tab Q6H PRN PO 03/26/17 18:00 (Percocet 10-325 Mg) 1 tab Q6H PRN PO 03/26/17 18:00 (Morphine Inj) 2 mg Q3H PRN IV PUSH 03/26/17 18:00 (Morphine Inj) 4 mg Q3H PRN IV PUSH 03/26/17 18:00 (Narcan Inj) 0.4 mg UNSCH PRN IV PUSH 03/26/17 18:00 (Radha-Colace) 1 tab BID PO 03/26/17 21:00 04/01/17 09:35 (Milk Of Magnesia Liq) 30 ml Q12H PRN PO 03/26/17 18:00 (Senokot) 17.2 mg Q12H PRN PO 03/26/17 18:00 (Dulcolax Supp) 10 mg DAILY PRN RECTAL 03/26/17 18:00 (Lactulose Liq) 30 ml DAILY PRN PO 03/26/17 18:00 (Pepcid) 20 mg BID PO 03/26/17 21:00 04/03/17 08:59 (Lipitor) 80 mg DAILY PO 03/27/17 11:00 04/03/17 08:58 (Synthroid) 25 mcg DAILY@0600 PO 03/30/17 06:00 04/03/17 05:21 (Diovan) 40 mg BID PO 03/29/17 21:00 04/03/17 08:58 (Bumex Inj) 2 mg BID@,18 IV PUSH 03/29/17 18:00 04/03/17 17:25 (Diuril Inj) 500 mg DAILY IV 03/29/17 15:15 04/03/17 09:07 (Tessalon) 100 mg TID PRN PO 03/30/17 15:15 04/03/17 09:08 (Deltasone) 40 mg BID PO 04/02/17 21:00 04/03/17 09:08 (Sara Jesus) Physical Exam General Appearance: Well Nourished, No Acute Distress, Comfortable (Sara Jesus) Eyes Eye Exam: Sclera White (Sara Jesus) Throat Throat Exam: Oral Mucosa [place] & Moist (Sara Jesus) Pulmonary Resp Exam: Clear Bilaterally, Breath Sounds Equal, No Distress (Sara Jesus) Cardiology CV Exam: Regular, Normal Sinus Rhythm, Good Perfusion (Sara Jesus) Gastrointestinal/Abdomen GI Exam: Soft, Non-Tender (Sara Jesus) Integumentary Skin Exam: Clear, Normal Turgor (Sara Jesus) Extremeties Extremities Exam: Moderate Edema (1+ bilat ankles. Improving UEs and facial) (Sara Jesus) Neurologic Neuro Exam: Alert, Awake, Oriented, Speech Clear, Moving All Extremities (Sara Jesus) Assessment/Plan Discussed Condition With: Patient Problem List: (1) Proteinuria ICD Codes: R80.9 - Proteinuria, unspecified Plan: Kidney biopsy from 03/28/17 showed minimal change disease with acute tubular injury. It should be noted that an unsampled FSGS could not be entirely excluded given small cortical sample. 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 FSGS apparently has been associated with this condition and FSGS has not been completely ruled out although unlikely. Appreciate infectious disease consultation regarding screening for same. Given severity of the patient's proteinuria and symptomatology as well as clinical findings will initiate therapy with prednisone pending screening for schistosomiasis. This was discussed with infectious disease who indicated the present there is no contraindication to at least initiate therapy pending evaluation. I discussed with the patient and literature was provided to him regarding indications for alternatives to as well as potential benefits and risks associated with prednisone usage. Potential side effects of prednisone were reviewed with him including risk of worsening hypertension, fluid removal, osteoporosis, gastric ulcer with bleeding as well as cataracts. Patient agrees to proceed. The plan will be to start therapy with prednisone at a dosage of about a milligram per kilogram the maximum dosage being 80 mg. Therapy will continue for about 12-16 weeks at this dosing and then subsequently tapering over 6 months. He was advised literature suggests a response rate of relapse of about 90% by 4 months. If the patient does not respond adequately to prednisone we may have to consider the possibility that he does indeed have FSGS in which case consideration may be given to a repeat biopsy and or utilization of cyclosporine or Cytoxan. Renal functions have declined slightly today. Potentially related to diuresis, however, as discussed with the patient sometimes renal functions can appear "normal" when a person has a significant amount of edema and once this improves the true renal function shows. It should also be noted that the biopsy did show acute tubular injury. Will change Bumex to po at this time and D/C Diuril. KCl supplement ordered Pt cleared for discharge from nephrology standpoint once cleared by ID. Is advised to continue on all medications as prescribed with renal panel in 1 week and f/u in office in 1 week post-discharge. (2) Hypertension ICD Codes: I10 - Essential (primary) hypertension Plan: Improved with medication. Monitor (3) Edema ICD Codes: R60.9 - Edema, unspecified Plan: As above. (4) Minimal change disease ICD Codes: N04.0 - Nephrotic syndrome with minor glomerular abnormality Plan: As above (Sara Jesus) Plan The exam, history, and the medical decision-making described in the above note were completed with the assistance of the PADeysi. I reviewed and agree with the findings presented. (Terence Bell MD) Problem Qualifiers (1) Proteinuria: Qualified Codes: R80.9 - Proteinuria, unspecified (2) Hypertension: Qualified Codes: I10 - Essential (primary) hypertension (3) Edema: Qualified Codes: R60.9 - Edema, unspecified Sara Jesus Apr 03, 2017 18:10 Terence Bell MD Apr 10, 2017 16:53
[2017-04-04] VITALS: BP 153/78; PULSE 82; RESP 17; TEMP 96.1; O2SAT 98
[2017-04-04 03:51] LABS: CD4/CD8 RATIO 1.3 (0.86-5.00)
[2017-04-04 04:00] VITALS: BP 144/75; PULSE 84; RESP 16; TEMP 98.2; O2SAT 96
[2017-04-04] MEDS: LEVOTHYROXINE SODIUM 25 MCG TAB PO SCH (05:58)
[2017-04-04 07:27] VITALS: BP 133/82; PULSE 83; RESP 17; TEMP 97.2; O2SAT 96
[2017-04-04 07:59] LABS: AUTOMATED NEUTROPHIL # 9.9 TH/MM3 (1.8-7.7); BASOPHIL % 0.1 % (0.0-2.0); HEMATOCRIT 39.6 % (39.0-51.0); HEMO FLAGS DIFF FINAL; LYMPH % 6.8 % (9.0-44.0); LYMPHOCYTE # 0.7 TH/MM3 (1.0-4.8); MEAN CELL VOLUME 72.9 FL (80.0-100.0); MEAN CORPUSCULAR HEMOGLOBIN 24.3 PG (27.0-34.0); MEAN CORPUSCULAR HGB CONC 33.4 % (32.0-36.0); MONO % 2.4 % (0.0-8.0); NEUT % 90.7 % (16.0-70.0); PLATELET COUNT 482 TH/MM3 (150-450); RED BLOOD COUNT 5.44 MIL/MM3 (4.50-5.90); RED CELL DISTRIBUTION WIDTH 13.7 % (11.6-17.2); WHITE BLOOD COUNT 10.9 TH/MM3 (4.0-11.0)
[2017-04-04 08:37] LABS: ALKALINE PHOSPHATASE 73 U/L (45-117); ALT (GPT) 16 U/L (12-78); ANION GAP 11 MEQ/L (5-15); AST (GOT) 29 U/L (15-37); BLOOD UREA NITROGEN 51 MG/DL (7-18); CHLORIDE 85 MEQ/L (98-107); GLOMERULAR FILTRATION RATE 57 ML/MIN (>89); MAGNESIUM 2.7 MG/DL (1.5-2.5); POTASSIUM 3.6 MEQ/L (3.5-5.1); TOTAL BILIRUBIN ADULT 0.2 MG/DL (0.2-1.0)
[2017-04-04 08:39] LABS: SODIUM (NA) 123 MEQ/L (136-145)
[2017-04-04] MEDS ORDERED: POTASSIUM CHLORIDE 10 MEQ CONTROLLED RELEASE TAB PO SCH (09:00)
[2017-04-04] MEDS ORDERED: BUMETANIDE 1 MG TAB PO SCH (09:00)
[2017-04-04] MEDS: DOCUSATE SODIUM 50 MG/SENNA 8.6 MG TAB PO SCH (09:00)
[2017-04-04] MEDS: predniSONE 10 MG TAB PO SCH (10:21)
[2017-04-04] MEDS: VALSARTAN 40 MG TAB PO SCH (10:23)
[2017-04-04] MEDS: ATORVASTATIN 80 MG TAB PO SCH (10:25)
[2017-04-04] MEDS: amLODIPine BESYLATE 5 MG TAB PO SCH (10:26)
--- NOTE | 2017-04-04 10:26 | HHI.PR ---
Subjective Remarks 27-year-old male complains of edema bilateral lower extremities and a generalized swelling in the abdomen as well as some shortness of breath at times. He believes he's gained about 10 pounds in approximately 3 weeks. Last night he noticed ankle edema for the first time. Urination has been normal. Diet has been normal. No fever. No rash. No similar prior episodes. He denies past medical history of any significance. No new or different medication. Onset gradual. Timing constant. Elevated blood pressure here 03-28 had kidney biopsy of left kidney on 03-28 MEDICATIONS ADJUSTED TO BUMEX INSTEAD OF LASIX NOW HAS A DRY COUGH WILL SWITCH OFF GEORGE AND GO TO ARB DW RN AND PATIENT HX OF VIRAL SYNDROME PRIOR TO COMING TO THE HOSPITAL?? 03-30 no new complaints Still has a dry cough even though change the GEORGE inhibitor to ARB Patient states he normally gets a dry cough when it's cold in the room which he feels it is in the hospital patient states he chronically gets a cough when this happens 03-31 AWAIT PATHOLOGY STILL HAS DRY COUGH LESS SWELLING IN LEGS DW RN AND PT AM LABS 04-01 still AWAITING PATHOLOGY DW RN AND PT NO NEW COMPLAINTS 04-02 RENAL WANTS TO START HIGH DOSE PREDNISONE- AWAIT ID CLEARANCE- BUT MULTIPLE STUDIES PENDING PRIOR TO STARTING HIGH DOSE PREDNISONE AWAIT STUDIES FOR ID CLEARANCE 04-03 STARTED ON PREDNISONE 40MG PO BID YESTERDAY OFFICIAL PATH REPORT NOT AVAILABLE YET NOT CLEARED FOR DC YET AM LABS RENAL FUNCTIONS A LITTLE WORSE 04-04 WANTS TO GO HOME TODAY DW RN AND PT DC TO HOME FOLLOW UP WITH RENAL 1 WEEK DW RN AND PT HAVING GERD LIKE SYMPTOMS Objective Vitals Vital Signs Date Time Temp Pulse Resp B/P (MAP) Pulse Ox O2 Delivery O2 Flow Rate FiO2 04/04/17 07:27 97.2 83 17 133/82 (99) 96 04/04/17 04:00 98.2 84 16 144/75 (98) 96 04/04/17 00:00 96.1 82 17 153/78 (103) 98 04/03/17 20:00 83 04/03/17 20:00 97.3 86 17 143/75 (97) 96 04/03/17 16:00 98.3 86 20 130/69 (89) 95 04/03/17 12:00 97.5 78 20 127/69 (88) 95 I/O 04/03/17 04/03/17 04/03/17 04/04/17 04/04/17 04/04/17 07:00 15:00 23:00 07:00 15:00 23:00 Intake Total 320 ml 240 ml 1000 ml 2160 ml Output Total 1000 ml Balance 320 ml 240 ml 0 ml 2160 ml Intake Oral 320 ml 240 ml 1000 ml 2160 ml Output Urine Total 1000 ml # Voids 3 4 # Bowel Movements 0 1 Result Diagram: 04/04/17 0545 04/04/17 0545 Other Results Laboratory Tests Test 04/01/17 12:50 04/01/17 16:32 04/02/17 00:50 04/02/17 05:30 Eosinophil Stool Smear NONE SEEN /HPF Miscellaneous Test Result Immunoglobulin G Total 205 MG/DL Immunoglobulin A 128 MG/DL Immunoglobulin M 136 MG/DL Immunoglobulin E 21.0 kU/L Absolute Lymphocytes (Cell Immunity 1484 Percent CD3 Cells 76 % Absolute CD3 Count 1122 Percent CD3-/CD16+/CD56+ Cells 10 % Absolute CD3-/CD16+/CD56+ Count 158 Percent CD4 Cells 43 % Absolute CD4 Count 604 T-[place]/Suppressor Ratio 1.3 Percent CD8 Cells 33 % Absolute CD8 Count 463 Percent CD19 Cells 12 % Absolute CD19 Count 194 Anti-Streptolysin O Antibody Screen NEG White Blood Count 9.3 TH/MM3 Red Blood Count 5.10 MIL/MM3 Hemoglobin 12.5 GM/DL Hematocrit 37.4 % Mean Corpuscular Volume 73.3 FL Mean Corpuscular Hemoglobin 24.6 PG Mean Corpuscular Hemoglobin Concent 33.5 % Red Cell Distribution Width 14.0 % Platelet Count 372 TH/MM3 Mean Platelet Volume 8.3 FL Neutrophils (%) (Auto) 68.7 % Lymphocytes (%) (Auto) 18.2 % Monocytes (%) (Auto) 10.6 % Eosinophils (%) (Auto) 1.9 % Basophils (%) (Auto) 0.6 % Neutrophils # (Auto) 6.4 TH/MM3 Lymphocytes # (Auto) 1.7 TH/MM3 Monocytes # (Auto) 1.0 TH/MM3 Eosinophils # (Auto) 0.2 TH/MM3 Basophils # (Auto) 0.1 TH/MM3 CBC Comment DIFF FINAL Differential Comment Blood Urea Nitrogen 39 MG/DL Creatinine 1.11 MG/DL Random Glucose 75 MG/DL Albumin 0.7 GM/DL Calcium Level 7.7 MG/DL Phosphorus Level 3.9 MG/DL Magnesium Level 2.8 MG/DL Sodium Level 129 MEQ/L Potassium Level 3.4 MEQ/L Chloride Level 93 MEQ/L Carbon Dioxide Level 27.7 MEQ/L Anion Gap 8 MEQ/L Estimat Glomerular Filtration Rate 80 ML/MIN Test 04/02/17 10:30 04/02/17 11:50 04/02/17 13:40 04/02/17 22:15 Miscellaneous Test Result Anti-Double Strand DNA Antibody <12.3 IU/mL Test 04/03/17 06:06 04/04/17 05:45 White Blood Count 6.9 TH/MM3 10.9 TH/MM3 Red Blood Count 5.56 MIL/MM3 5.44 MIL/MM3 Hemoglobin 13.7 GM/DL 13.2 GM/DL Hematocrit 40.9 % 39.6 % Mean Corpuscular Volume 73.5 FL 72.9 FL Mean Corpuscular Hemoglobin 24.7 PG 24.3 PG Mean Corpuscular Hemoglobin Concent 33.6 % 33.4 % Red Cell Distribution Width 13.7 % 13.7 % Platelet Count 434 TH/MM3 482 TH/MM3 Mean Platelet Volume 8.5 FL 8.2 FL Neutrophils (%) (Auto) 90.5 % 90.7 % Lymphocytes (%) (Auto) 8.0 % 6.8 % Monocytes (%) (Auto) 1.4 % 2.4 % Eosinophils (%) (Auto) 0.0 % 0.0 % Basophils (%) (Auto) 0.1 % 0.1 % Neutrophils # (Auto) 6.3 TH/MM3 9.9 TH/MM3 Lymphocytes # (Auto) 0.6 TH/MM3 0.7 TH/MM3 Monocytes # (Auto) 0.1 TH/MM3 0.3 TH/MM3 Eosinophils # (Auto) 0.0 TH/MM3 0.0 TH/MM3 Basophils # (Auto) 0.0 TH/MM3 0.0 TH/MM3 CBC Comment DIFF FINAL DIFF FINAL Differential Comment Blood Urea Nitrogen 43 MG/DL 51 MG/DL Creatinine 1.46 MG/DL 1.48 MG/DL Random Glucose 127 MG/DL 112 MG/DL Albumin 0.9 GM/DL 1.0 GM/DL Calcium Level 8.4 MG/DL 8.0 MG/DL Phosphorus Level 3.9 MG/DL 3.9 MG/DL Magnesium Level 2.9 MG/DL 2.7 MG/DL Sodium Level 127 MEQ/L 123 MEQ/L Potassium Level 3.9 MEQ/L 3.6 MEQ/L Chloride Level 90 MEQ/L 85 MEQ/L Carbon Dioxide Level 28.3 MEQ/L 27.0 MEQ/L Anion Gap 9 MEQ/L 11 MEQ/L Estimat Glomerular Filtration Rate 58 ML/MIN 57 ML/MIN Total Protein 5.4 GM/DL Alkaline Phosphatase 73 U/L Aspartate Amino Transf (AST/SGOT) 29 U/L Alanine Aminotransferase (ALT/SGPT) 16 U/L Total Bilirubin 0.2 MG/DL Imaging Last Impressions Renal Biopsy CT 03/28/17 0000 Signed Impressions: Service Date/Time: March 13:09 - CONCLUSION: Uncomplicated CT guided biopsy of the lower pole left kidney. Erickson Hughes MD Chest X-Ray 03/26/17 1536 Signed Impressions: Service Date/Time: Sunday, March 26, 2017 15:42 - CONCLUSION: 1. Mild basilar airspace disease with probable trace pleural fluid. Deepak Figueroa MD Renal Ultrasound 03/26/17 0000 Signed Impressions: Service Date/Time: Sunday, March 26, 2017 18:31 - CONCLUSION: 1. No evidence of hydronephrosis, mass or stone. 2. Unremarkable urinary bladder. 3. Bilateral pleural effusions. 4. Minimal ascites within the upper abdomen. Daryl Monahan MD Objective Remarks GENERAL: This is a well-nourished, well-developed patient, in no apparent distress. SKIN: No rashes, ecchymoses or lesions. Cool and dry. +2 bilateral lower extremity edema HEAD: Atraumatic. Normocephalic. No temporal or scalp tenderness. EYES: Pupils equal round and reactive. Extraocular motions intact. No scleral icterus. No injection or drainage. ENT: Nose without bleeding, purulent drainage or septal hematoma. Throat without erythema, tonsillar hypertrophy or exudate. Uvula midline. Airway patent. NECK: Trachea midline. No JVD or lymphadenopathy. Supple, nontender, no meningeal signs. CARDIOVASCULAR: Regular rate and rhythm without murmurs, gallops, or rubs. S1 and S2 no S3 or S4 RESPIRATORY: Clear to auscultation. Breath sounds equal bilaterally. No wheezes , rales, or rhonchi. GASTROINTESTINAL: Abdomen soft, non-tender, nondistended. No hepato-splenomegaly , or palpable masses. No guarding. MUSCULOSKELETAL: Extremities without clubbing, cyanosis, positive +2 bilateral lower extremity edema no joint tenderness, effusion, or edema noted. No calf tenderness. Negative Homans sign bilaterally. NEUROLOGICAL: Awake and alert. Cranial nerves II through XII intact. Motor and sensory grossly within normal limits. Five out of 5 muscle strength in all muscle groups. Normal speech. Insight and judgment is good Mood and behaviors appropriate Procedures KIDNEY BIOPSY OF LEFT POLE OF KIDNEY 03-28 Medications and IVs Current Medications Sodium Chloride (NS Flush) 2 ml UNSCH PRN IVF FLUSH AFTER USING IV ACCESS; Start 03/26/17 at 15:45; Stop 03/26/17 at 18:09; Status DC Furosemide (Lasix Inj) 20 mg ONCE ONCE IV PUSH Last administered on 03/26/17 17:02; Start 03/26/17 at 17:00; Stop 03/26/17 at 17:01; Status DC Clonidine (Catapres) 0.1 mg Q4H PRN PO SBP>160, DBP>90; Start 03/26/17 at 18:00 Lisinopril (Prinivil) 10 mg Q12HR PO Last administered on 03/28/17 22:05; Start 03/26/17 at 21:00; Stop 03/29/17 at 09:26; Status DC Amlodipine Besylate (Norvasc) 5 mg ONCE ONCE PO Last administered on 18:28; Start 03/26/17 at 18:00; Stop 03/26/17 at 18:10; Status DC Amlodipine Besylate (Norvasc) 5 mg DAILY PO Last administered on 04/03/17 08: 59; Start 03/27/17 at 09:00 Furosemide (Lasix Inj) 20 mg BID@,18 IV PUSH Last administered on 03/27/17 09:44; Start 03/26/17 at 18:00; Stop 03/27/17 at 17:16; Status DC Sodium Chloride (NS Flush) 2 ml UNSCH PRN IV FLUSH FLUSH AFTER USING IV ACCESS Last administered on 04/02/17 18:09; Start 03/26/17 at 18:00 Sodium Chloride (NS Flush) 2 ml BID IV FLUSH Last administered on 04/03/17 21: 05; Start 03/26/17 at 21:00 Acetaminophen (Tylenol) 650 mg Q4H PRN PO TEMP > 100.4; Start 03/26/17 at 18:00 Ondansetron HCl (Zofran Inj) 4 mg Q6H PRN IVP NAUSEA OR VOMITING; Start at 18:00 Prochlorperazine (Compazine Supp) 25 mg Q12H PRN RECTAL NAUSEA OR VOMITING; Start 03/26/17 at 18:00 Zolpidem Tartrate (Ambien) 5 mg HS PRN PO INSOMNIA; Start 03/26/17 at 18:00 Acetaminophen (Tylenol) 650 mg Q6H PRN PO PAIN SCALE 1 TO 2 Last administered on 03/27/17 05:08; Start 03/26/17 at 18:00 Oxycodone/ Acetaminophen (Percocet 5-325 Mg) 1 tab Q6H PRN PO PAIN SCALE 3 TO 5; Start 03/26/17 at 18:00 Oxycodone/ Acetaminophen (Percocet 10-325 Mg) 1 tab Q6H PRN PO PAIN SCALE 6 TO 10; Start 03/26/17 at 18:00 Morphine Sulfate (Morphine Inj) 2 mg Q3H PRN IV PUSH Pain 3-5; if unable to take PO; Start 03/26/17 at 18:00 Morphine Sulfate (Morphine Inj) 4 mg Q3H PRN IV PUSH Pain 6-10;if unable to take PO; Start 03/26/17 at 18:00 Naloxone HCl (Narcan Inj) 0.4 mg UNSCH PRN IV PUSH SEE LABEL COMMENTS; Start at 18:00 Senna/Docusate Sodium (Radha-Colace) 1 tab BID PO Last administered on 09:35; Start 03/26/17 at 21:00 Magnesium Hydroxide (Milk Of Magnesia Liq) 30 ml Q12H PRN PO MILD - MODERATE CONSTIPATION; Start 03/26/17 at 18:00 Sennosides (Senokot) 17.2 mg Q12H PRN PO MODERATE - SEVERE CONSTIPATION; Start 03/26/17 at 18:00 Bisacodyl (Dulcolax Supp) 10 mg DAILY PRN RECTAL SEVERE CONSITIPATION; Start at 18:00 Lactulose (Lactulose Liq) 30 ml DAILY PRN PO SEVERE CONSITIPATION; Start at 18:00 Famotidine (Pepcid) 20 mg BID PO Last administered on 04/03/17 21:05; Start at 21:00; Stop 04/04/17 at 09:36; Status DC Atorvastatin Calcium (Lipitor) 80 mg DAILY PO Last administered on 04/03/17 08 :58; Start 03/27/17 at 11:00 Furosemide (Lasix Inj) 40 mg BID@ IV PUSH Last administered on 03/28/17 09:57; Start 03/27/17 at 18:00; Stop 03/28/17 at 17:33; Status DC Potassium Chloride (KCl) 20 meq ONCE ONCE PO Last administered on 03/27/17 18 :06; Start 03/27/17 at 18:00; Stop 03/27/17 at 18:01; Status DC Chlorothiazide Sodium (Diuril Inj) 500 mg ONCE ONCE IV ; Start 03/27/17 at 18: 30; Stop 03/27/17 at 18:31; Status DC Fentanyl Citrate (fentaNYL INJ) 200 mcg STK-MED ONCE .ROUTE Last administered on 03/28/17 13:05; Start 03/28/17 at 12:29; Stop 03/28/17 at 12:30; Status DC Midazolam HCl (Versed Inj) 5 mg STK-MED ONCE .ROUTE Last administered on 13:05; Start 03/28/17 at 12:30; Stop 03/28/17 at 12:31; Status DC Lidocaine HCl (Xylocaine 1% Inj) 20 ml STK-MED ONCE .ROUTE Last administered on 03/28/17 12:46; Start 03/28/17 at 12:46; Stop 03/28/17 at 12:47; Status DC Hydromorphone HCl (Dilaudid) 1 mg Q6H PRN PO Pain post renal biopsy; Start at 14:00; Stop 03/28/17 at 23:59; Status DC Bumetanide (Bumex Inj) 1 mg BID@18 IV PUSH Last administered on 03/29/17 09 :58; Start 03/28/17 at 18:00; Stop 03/29/17 at 15:18; Status DC Levothyroxine Sodium (Synthroid) 25 mcg DAILY@0600 PO Last administered on 04/04 05:58; Start 03/30/17 at 06:00 Levothyroxine Sodium (Synthroid) 25 mcg ONCE ONCE PO Last administered on 03/29 10:25; Start 03/29/17 at 09:30; Stop 03/29/17 at 09:38; Status DC Valsartan (Diovan) 40 mg BID PO Last administered on 04/03/17 21:05; Start at 21:00 Bumetanide (Bumex Inj) 2 mg BID@18 IV PUSH Last administered on 04/03/17 17 :25; Start 03/29/17 at 18:00; Stop 04/03/17 at 18:13; Status DC Chlorothiazide Sodium (Diuril Inj) 500 mg DAILY IV Last administered on 09:07; Start 03/29/17 at 15:15; Stop 04/03/17 at 18:13; Status DC Benzonatate (Tessalon) 100 mg TID PRN PO cough Last administered on 04/03/17 18:41; Start 03/30/17 at 15:15 Potassium Chloride (KCl) 40 meq ONCE ONCE PO Last administered on 04/02/17 14 :44; Start 04/02/17 at 12:00; Stop 04/02/17 at 12:01; Status DC Prednisone (Deltasone) 40 mg BID PO Last administered on 04/03/17 21:05; Start 04/02/17 at 21:00 Bumetanide (Bumetanide) 1 mg BID@18 PO ; Start 04/04/17 at 09:00 Potassium Chloride (KCl) 10 meq DAILY PO ; Start 04/04/17 at 09:00 Famotidine (Pepcid) 40 mg BID PO ; Start 04/04/17 at 21:00; Status UNV Pantoprazole Sodium (Protonix) 40 mg Q12HR PO ; Start 04/04/17 at 09:45; Status UNV Chlorpromazine (Thorazine) 25 mg Q8H PRN PO hiccups; Start 04/04/17 at 09:45; Status UNV Urinary Catheter: No Vascular Central Line Catheter: No A/P Problem List: (1) Nephrotic syndrome ICD Code: N04.9 - Nephrotic syndrome with unspecified morphologic changes (2) Edema ICD Code: R60.9 - Edema, unspecified (3) Proteinuria ICD Code: R80.9 - Proteinuria, unspecified (4) Hypoalbuminemia ICD Code: E88.09 - Other disorders of plasma-protein metabolism, not elsewhere classified (5) Hypertension ICD Code: I10 - Essential (primary) hypertension (6) Hyperlipidemia ICD Code: E78.5 - Hyperlipidemia, unspecified (7) Hypertriglyceridemia ICD Code: E78.1 - Pure hyperglyceridemia (8) Hypothyroidism ICD Code: E03.9 - Hypothyroidism, unspecified Assessment and Plan Nephrotic syndrome has proteinuria -has edema-has hypoalbuminemia-has lipid issues Fluid restrict consult nephrology Started on GEORGE inhibitor- HAVING COUGH SWITCH TO ARB--has chronic cough this may have nothing to do with ARB or GEORGE -states it is worse with cold air which he is having blown on him while he is here in the hospital Calcium channel kailyn Accurate I's and O's Daily weights A.m. labs 24 hour urine in the process of being done Ultrasounds of bilateral kidney have been done SCDs bilateral lower extremities Hypertension SWITCH TO ARB and calcium channel kailyn SWITCHED TO BUMEX When necessary Catapres Hyperlipidemia and hypertriglyceridemia started on high-dose Lipitor Check thyroid panel SHOWS HYPOTHYROIDISM START ON SYNTHROID 25MCG DAILY Fasting lipid panel HIGH CHOLESTEROL AND TRIGLYCERIDES DVT and GI prophylaxis Discussed with patient and RN CHANGE TO ARB ADD SYNTHROID RENAL INSUFFICIENCY- AM LABS- ACTUALLY A LITTLE WORSE ON LABS WAS STARTED ON PREDNISONE 40MG PO BID 04-02 Chronic cough from cold air conditioning STILL AWAITING PATHOLOGY REPLACE POTASSIUM DC TO HOME TODAY FOLLOW UP WITH RENAL OUT PT LABS Discharge Planning DC TO HOME TODAY Problem Qualifiers (1) Edema: Qualified Codes: R60.9 - Edema, unspecified (2) Proteinuria: Qualified Codes: R80.9 - Proteinuria, unspecified (3) Hypertension: Qualified Codes: I10 - Essential (primary) hypertension Pablo Sandoval DO Apr 04, 2017 10:26
[2017-04-04] MEDS: BENZONATATE 100 MG CAP PO PRN (10:27)
[2017-04-04] MEDS: SODIUM CHLORIDE 0.9% FLUSH 10 ML FLUSH IV FLUSH SCH (10:27)
[2017-04-04] MEDS ORDERED: AMBI5TAB PO (10:33)
[2017-04-04] MEDS ORDERED: ATOR1TAB18 PO (10:33)
[2017-04-04] MEDS ORDERED: PANT40TA3 PO (10:33)
[2017-04-04] MEDS ORDERED: OXYC1TAB63 PO (10:33)
[2017-04-04] MEDS ORDERED: POTA-243 PO (10:33)
[2017-04-04] MEDS ORDERED: PRED10 PO (10:33)
[2017-04-04] MEDS ORDERED: DIOV40TA PO (10:33)
[2017-04-04] MEDS ORDERED: AMLO5 PO (10:33)
[2017-04-04] MEDS ORDERED: FAMO20TA2 PO (10:33)
[2017-04-04] MEDS ORDERED: LEVO25TA4 PO (10:33)
[2017-04-04] MEDS ORDERED: BUME1TAB PO (10:33)
--- NOTE | 2017-04-04 10:36 | HHI.DS ---
Discharge Summary Admission Date Mar 26, 2017 at 18:06 Discharge Date: Apr 04, 2017 Admitting Diagnosis Nephrotic Syndrome; Edema (1) Nephrotic syndrome ICD Code: N04.9 - Nephrotic syndrome with unspecified morphologic changes Diagnosis: Principal (2) Edema ICD Code: R60.9 - Edema, unspecified Diagnosis: Principal (3) Proteinuria ICD Code: R80.9 - Proteinuria, unspecified Diagnosis: Principal (4) Hypoalbuminemia ICD Code: E88.09 - Other disorders of plasma-protein metabolism, not elsewhere classified Diagnosis: Principal (5) Hypertension ICD Code: I10 - Essential (primary) hypertension Diagnosis: Principal (6) Hyperlipidemia ICD Code: E78.5 - Hyperlipidemia, unspecified Diagnosis: Principal (7) Hypertriglyceridemia ICD Code: E78.1 - Pure hyperglyceridemia Diagnosis: Principal (8) Hypothyroidism ICD Code: E03.9 - Hypothyroidism, unspecified Diagnosis: Secondary Procedures KIDNEY BIOPSY OF LEFT POLE OF KIDNEY 03-28 Brief History - From Admission 27-year-old male complains of edema bilateral lower extremities and a generalized swelling in the abdomen as well as some shortness of breath at times. He believes he's gained about 10 pounds in approximately 3 weeks. Last night he noticed ankle edema for the first time. Urination has been normal. Diet has been normal. No fever. No rash. No similar prior episodes. He denies past medical history of any significance. No new or different medication. Onset gradual. Timing constant. Elevated blood pressure here CBC/BMP: 04/04/17 0545 04/04/17 0545 Significant Findings Laboratory Tests Test 04/01/17 12:50 04/01/17 16:32 04/02/17 00:50 04/02/17 05:30 Immunoglobulin G Total 205 MG/DL (650-1600) Hemoglobin 12.5 GM/DL (13.0-17.0) Hematocrit 37.4 % (39.0-51.0) Mean Corpuscular Volume 73.3 FL (80.0-100.0) Mean Corpuscular Hemoglobin 24.6 PG (27.0-34.0) Monocytes (%) (Auto) 10.6 % (0.0-8.0) Monocytes # (Auto) 1.0 TH/MM3 (0-0.9) Blood Urea Nitrogen 39 MG/DL (7-18) Albumin 0.7 GM/DL (3.4-5.0) Calcium Level 7.7 MG/DL (8.5-10.1) Magnesium Level 2.8 MG/DL (1.5-2.5) Sodium Level 129 MEQ/L (136-145) Potassium Level 3.4 MEQ/L (3.5-5.1) Chloride Level 93 MEQ/L (98-107) Estimat Glomerular Filtration Rate 80 ML/MIN (>89) Test 04/02/17 10:30 04/02/17 11:50 04/02/17 13:40 04/02/17 22:15 Test 04/03/17 06:06 04/04/17 05:45 Mean Corpuscular Volume 73.5 FL (80.0-100.0) 72.9 FL (80.0-100.0) Mean Corpuscular Hemoglobin 24.7 PG (27.0-34.0) 24.3 PG (27.0-34.0) Neutrophils (%) (Auto) 90.5 % (16.0-70.0) 90.7 % (16.0-70.0) Lymphocytes (%) (Auto) 8.0 % (9.0-44.0) 6.8 % (9.0-44.0) Lymphocytes # (Auto) 0.6 TH/MM3 (1.0-4.8) 0.7 TH/MM3 (1.0-4.8) Blood Urea Nitrogen 43 MG/DL (7-18) 51 MG/DL (7-18) Creatinine 1.46 MG/DL (0.60-1.30) 1.48 MG/DL (0.60-1.30) Random Glucose 127 MG/DL (74-106) 112 MG/DL (74-106) Albumin 0.9 GM/DL (3.4-5.0) 1.0 GM/DL (3.4-5.0) Calcium Level 8.4 MG/DL (8.5-10.1) 8.0 MG/DL (8.5-10.1) Magnesium Level 2.9 MG/DL (1.5-2.5) 2.7 MG/DL (1.5-2.5) Sodium Level 127 MEQ/L (136-145) 123 MEQ/L (136-145) Chloride Level 90 MEQ/L (98-107) 85 MEQ/L (98-107) Estimat Glomerular Filtration Rate 58 ML/MIN (>89) 57 ML/MIN (>89) Platelet Count 482 TH/MM3 (150-450) Neutrophils # (Auto) 9.9 TH/MM3 (1.8-7.7) Total Protein 5.4 GM/DL (6.4-8.2) Imaging Last Impressions Renal Biopsy CT 03/28/17 0000 Signed Impressions: Service Date/Time: March 13:09 - CONCLUSION: Uncomplicated CT guided biopsy of the lower pole left kidney. Erickson Hughes MD Chest X-Ray 03/26/17 1536 Signed Impressions: Service Date/Time: Sunday, March 26, 2017 15:42 - CONCLUSION: 1. Mild basilar airspace disease with probable trace pleural fluid. Deepak Figueroa MD Renal Ultrasound 03/26/17 0000 Signed Impressions: Service Date/Time: Sunday, March 26, 2017 18:31 - CONCLUSION: 1. No evidence of hydronephrosis, mass or stone. 2. Unremarkable urinary bladder. 3. Bilateral pleural effusions. 4. Minimal ascites within the upper abdomen. Daryl Monahan MD PE at Discharge GENERAL: laying in bed EYES: Extraocular motions intact. ENT: Nose without drainage. Airway patent. NECK: Trachea midline. CARDIOVASCULAR: Regular rate and rhythm without murmurs RESPIRATORY: Clear to auscultation. Breath sounds equal bilaterally. No wheezes GASTROINTESTINAL: Abdomen soft, non-tender, nondistended. MUSCULOSKELETAL: Extremities positive +2 bilateral lower extremity edema non pitting NEUROLOGICAL: Awake and alert. Cranial nerves II through XII intact. Motor and sensory grossly within normal limits. Insight and judgment is good Mood and behaviors appropriate Hospital Course 27-year-old male complains of edema bilateral lower extremities and a generalized swelling in the abdomen as well as some shortness of breath at times. He believes he's gained about 10 pounds in approximately 3 weeks. Last night he noticed ankle edema for the first time. Urination has been normal. Diet has been normal. No fever. No rash. No similar prior episodes. He denies past medical history of any significance. No new or different medication. Onset gradual. Timing constant. Elevated blood pressure here 03-28 had kidney biopsy of left kidney on 03-28 MEDICATIONS ADJUSTED TO BUMEX INSTEAD OF LASIX NOW HAS A DRY COUGH WILL SWITCH OFF GEORGE AND GO TO ARB DW RN AND PATIENT HX OF VIRAL SYNDROME PRIOR TO COMING TO THE HOSPITAL?? 03-30 no new complaints Still has a dry cough even though change the GEORGE inhibitor to ARB Patient states he normally gets a dry cough when it's cold in the room which he feels it is in the hospital patient states he chronically gets a cough when this happens 03-31 AWAIT PATHOLOGY STILL HAS DRY COUGH LESS SWELLING IN LEGS DW RN AND PT AM LABS 04-01 still AWAITING PATHOLOGY DW RN AND PT NO NEW COMPLAINTS 04-02 RENAL WANTS TO START HIGH DOSE PREDNISONE- AWAIT ID CLEARANCE- BUT MULTIPLE STUDIES PENDING PRIOR TO STARTING HIGH DOSE PREDNISONE AWAIT STUDIES FOR ID CLEARANCE 04-03 STARTED ON PREDNISONE 40MG PO BID YESTERDAY OFFICIAL PATH REPORT NOT AVAILABLE YET NOT CLEARED FOR DC YET AM LABS RENAL FUNCTIONS A LITTLE WORSE 04-04 WANTS TO GO HOME TODAY DW RN AND PT DC TO HOME FOLLOW UP WITH RENAL 1 WEEK DW RN AND PT HAVING GERD LIKE SYMPTOMS DC TO HOME TODAY DW RN AND PT Pt Condition on Discharge: Good Discharge Disposition: Discharge Home Discharge Time: > 30 minutes Discharge Instructions DIET: Follow Instructions for: Heart Healthy Diet Activities you can perform: Regular-No Restrictions Follow up Referrals: Nephrology - 1 Week with Terence Bell MD PCP Follow-up - 1 Week New Orders: COMP MET PROF (CMP) - 1 Week New Medications: Amlodipine (Norvasc) 5 Mg Tab 5 MG PO DAILY for Blood Pressure Management, #30 TAB Atorvastatin (Atorvastatin) 80 Mg Tab 80 MG PO DAILY for Cholesterol Management, #30 TAB Bumetanide (Bumetanide) 1 Mg Tab 1 MG PO BID@09,18 for Blood Pressure Management, #60 TAB Famotidine (Famotidine) 20 Mg Tab 40 MG PO BID for Heartburn Management, #60 TAB Levothyroxine (Levothyroxine) 25 Mcg Tab 25 MCG PO DAILY@0600 for Thyroid, #30 TAB Oxycodone-Acetaminophen (Oxycodone-Acetaminophen) 5-325 mg Tab 1 TAB PO Q6H PRN for PAIN SCALE 5 TO 10, #20 TAB Pantoprazole (Pantoprazole) 40 Mg Tab 40 MG PO Q12HR for Heartburn Management, #60 TAB Potassium Chloride ER (Klor-Con 10) 10 Meq Tab 10 MEQ PO DAILY for Electrolyte Replacement, #30 TAB Prednisone (Prednisone) 10 Mg Tab 40 MG PO BID for Inflammation, #240 TAB TAKE WITH FOOD Valsartan (Diovan) 40 Mg Tab 40 MG PO BID for Blood Pressure Management, #60 TAB Zolpidem (Ambien) 5 Mg Tab 5 MG PO HS PRN for INSOMNIA, #30 TAB Pablo Sandoval DO Apr 04, 2017 10:36
[2017-04-04] MEDS ORDERED: PANTOPRAZOLE SOD 40 MG DELAYED RELEASE TAB PO SCH (10:45)
--- NOTE | 2017-04-04 10:59 | HHI.PR ---
Addendum to Inpatient Note Addendum Reason: Additional Documentation Additional Information D/w [place] in specials she is in receipt of 3 seperate day stool and urine samples for Schistosomiasis. Patient to follow up with Dr.Reba Yoder. office notified. Dr.Reba Yoder Will sign off please call back if any change in clinical condition or questions. Ailyn Ga MD Apr 04, 2017 10:59
[2017-04-04] MEDS ORDERED: chlorproMAZINE HCL 25 MG TAB PO PRN (11:00)
[2017-04-04 12:00] VITALS: BP_SYST 137; BP_SYST 154; BP_DIAS 80; BP_DIAS 84; PULSE 79; PULSE 84; RESP 18; TEMP 96.4; TEMP 98.3; O2SAT 97; O2SAT 98
[2017-04-04 15:51] LABS: THROMBIN TIME FOR LA ND sec (13-19)
[2017-04-04] MEDS ORDERED: FAMOTIDINE 20 MG TAB PO SCH (21:00)
[2017-04-10 23:52] LABS: DNA AUTOANTIBODY SINGLE STRAND LESS THAN 69.0 U/mL (<230)
== END 2017-04-04 13:37 | disposition home or self-care (01) | DRG 684 ==
LOC: NEPE 15:17 → NEDA 17:26 → OBSVTOIN 18:06 → NEPGCP 21:09 → N07B 03-27 05:47
PROVIDERS: ADMIT Hospitalist; ATTEND Hospitalist
PROC: 0TB13ZX Excision of Left Kidney, Percutaneous Approach, Diagnostic (ICD-10-PCS; principal; 2017-03-28)
DX: I12.9 Hypertensive chronic kidney disease with stage 1 through stage 4 chronic kidney disease, or unspecified chronic kidney disease (principal); E03.9 Hypothyroidism, unspecified; E78.5 Hyperlipidemia, unspecified; I16.0 Hypertensive urgency; R60.9 Edema, unspecified
CPT/HCPCS: 50200; 71010; 76775; 76937; 77012; 80053; 80061; 80069; 80074; 81001; 81050; 82550; 82570; 82595; 82784; 82785; 83036; 83735; 83880; 84100; 84156; 84165; 84166; 84439; 84443; 84484; 85025; 85027; 85597; 85598; 85610; 85613; 85730; 86038; 86160; 86225; 86226; 86335; 86355; 86357; 86359; 86360; 86403; 86592; 87205; 87328; 87329; 87389; 87535; 96374; J1205; J1940; J2250; J3010; J7512

== ENCOUNTER → 2017-04-15 | Outpatient (CLI) | payer OTHER ==
[~2017-04-15] MED LIST: AMBI5TAB PO; AMLO5 PO; ATOR1TAB18 PO; BUME1TAB PO; DIOV40TA PO; FAMO20TA2 PO; LEVO25TA4 PO; OXYC1TAB63 PO; PANT40TA3 PO; POTA-243 PO; PRED10 PO
[2017-04-15 07:23] LABS: AUTOMATED NEUTROPHIL # 10.2 TH/MM3 (1.8-7.7); HEMATOCRIT 42.2 % (39.0-51.0); HEMO FLAGS DIFF FINAL; LYMPH % 14.2 % (9.0-44.0); LYMPHOCYTE # 1.9 TH/MM3 (1.0-4.8); MEAN CELL VOLUME 74.5 FL (80.0-100.0); MEAN CORPUSCULAR HGB CONC 32.3 % (32.0-36.0); MONO % 8.6 % (0.0-8.0); NEUT % 77.2 % (16.0-70.0); PLATELET COUNT 419 TH/MM3 (150-450); RED BLOOD COUNT 5.66 MIL/MM3 (4.50-5.90); RED CELL DISTRIBUTION WIDTH 14.2 % (11.6-17.2); WHITE BLOOD COUNT 13.2 TH/MM3 (4.0-11.0)
[2017-04-15 07:46] LABS: BICARBONATE 31.4 MEQ/L (21.0-32.0); POTASSIUM 3.8 MEQ/L (3.5-5.1)
[2017-04-15 08:46] LABS: BLOOD, URINE NEG (NEG); GLUCOSE,URINE NEG (NEG); KETONE, URINE NEG (NEG); NITRITE,URINE NEG (NEG); URINE COLOR LIGHT-YELLOW (YELLW/STRAW)
== END ==
LOC: CLAB 06:35
PROVIDERS: ATTEND Internal Medicine Nephrology
DX: R80.9 Proteinuria, unspecified (principal); N04.0 Nephrotic syndrome with minor glomerular abnormality
CPT/HCPCS: 36415; 80069; 81001; 85025

== ENCOUNTER → 2017-04-18 | Outpatient (CLI) | payer OTHER ==
[2017-04-18 07:47] LABS: URINE TOTAL PROTEIN TIMED 9.9 MG/DL
[2017-04-18 07:51] LABS: CREAT 24 TIMED 24.2 MG/DL
== END ==
LOC: CLAB 06:47
PROVIDERS: ATTEND Physician Assistant
DX: N04.0 Nephrotic syndrome with minor glomerular abnormality (principal)
CPT/HCPCS: 82570; 84157